=== PATIENT | female | born 1955 | race Hispanic/Latino ===

== ENCOUNTER 2019-03-31 18:49 | Emergency (ER) | payer BC, SELFPAY ==
[2019-03-31 19:02] VITALS: BP 143/74; PULSE 64; RESP 16; TEMP 36.2; O2SAT 98
--- NOTE | 2019-03-31 19:47 | ED.GENADULT ---
HPI - General Adult General Chief complaint: Ear Stated complaint: Dizziness/Vomiting/Ear pain Time Seen by Provider: 03/31/19 19:47 Source: patient and RN notes reviewed Mode of arrival: ambulatory Limitations: no limitations History of Present Illness HPI narrative: 64-year-old female presents with RT ear pain, itching, and clogged feeling for 3 days. Symptoms increased over the last 24 hours with dizziness, nausea, and vomiting. No treatment. History of Vertigo. Exacerbating factors consist of changing position too fast turning head from side to side too fast. Relieving factors is sitting still. No ear trauma, trauma to head, syncopal episodes, altered vision, altered speech, confusion, or seizure activity. Denies headache, numbness or tingling in extremities. Facial congestion and pressure. No facial swelling. Dry cough. No chest congestion. Nasal congestion and rhinorrhea. No sore throat. No high fevers, drooling, neck or throat swelling. No voice change. Nausea with 2 episodes of vomiting without blood or coffee ground emesis or abdominal pain. Tolerating liquids well. Denies chills, dyspnea, difficulty swallowing, jaw pain, dental pain, foreign body sensation, and rash. No chest pain or shortness of breath. Some parts of this dictation were generated by voice recognition software and may contain typographical and/or grammatical inaccuracies. Related Data Home Medications Medication Instructions Recorded Confirmed etanercept [Enbrel] 50 mg SUBCUT WEEKLY 03/31/19 03/31/19 Allergies Allergy/AdvReac Type Severity Reaction Status Date / Time No Known Allergies Allergy Verified 03/31/19 18:55 Review of Systems Review of Systems: Narrative: CONSTITUTIONAL: Denies fever, chills, sweats. EYES: Denies visual changes, redness, discharge. ENT: Complains of RT otalgia, rhinorrhea, congestion, facial congestion and pressure. Denies sore throat. CARDIOVASCULAR: Denies chest pain, palpitations, edema. RESPIRATORY: Denies dyspnea, wheezing. Complains of dry cough. GASTROINTESTINAL: Denies abdominal pain, diarrhea. Complains of nausea, vomiting. GENITOURINARY: Denies dysuria, hematuria, abnormal discharge SKIN: Denies rash or itching. MUSCULOSKELETAL: Denies acute back pain, joint pain, or myalgia. NEUROLOGIC: Denies numbness, or focal weakness. Complains of dizziness with intermittent spinning feeling. PSYCHIATRIC: Denies anxiety or depression. [facility] Past Medical History Medical History (Updated 04/01/19 @ 00:00 by Meir Silva) Arthritis Surgical History Surgical History (Updated 03/31/19 @ 19:57 by ALEXIA Johnson) History of cholecystectomy History of eye surgery Left Family History Family History Father Family history of malignant neoplasm, Onset Age: 104 Social History Social History (Updated 03/31/19 @ 19:57 by ALEXIA Johnson) Smoking status: Never smoker Alcohol intake: never Substance use: never Living arrangements: with family Occupation/Education: occupation Gender identity (if verbalized by the patient): Female Comments At time of signature, agree with nurse past medical, surgical, social, and family history. There is no relevant family history pertinent to the presenting complaint. Exam Narrative: Exam Narrative: GENERAL: This is a well-nourished, well-developed patient, in no apparent distress. Talks in full sentences and ambulates with steady gait without dyspnea. HEAD: normocephalic, atraumatic. EYES: PERRL. Sclera clear/white. Vision is grossly intact. EARS: Pinna is normal shape and contour. Clear external auditory canals. LT TM pearly hernandez with good cone of light, no erythema or suppuration. RT TM mild erythema and effusion, bulging, no drainage or suppuration. No tenderness with manipulation. No gross hearing deficit. NOSE: External nose normal with no obvious nasal disc
[2019-03-31] MEDS: ONDANSETRON HCL ODT 4 MG TABLET PO (19:58)
[2019-03-31] MEDS: MECLIZINE HCL 25 MG TABLET PO (19:58)
[2019-03-31 20:00] VITALS: BP 128/69; PULSE 61
[2019-03-31 20:01] VITALS: BP 132/70; PULSE 61
[2019-03-31 20:02] VITALS: BP 122/79; PULSE 67
== END 2019-03-31 20:35 | disposition home or self-care (01) ==
PROVIDERS: Emergency Provider Nurse Practitioner Family
DX: R42 Dizziness and giddiness (principal); H65.191 Other acute nonsuppurative otitis media, right ear; M19.90 Unspecified osteoarthritis, unspecified site
CPT/HCPCS: 99213; A9270; G0463

== ENCOUNTER 2021-09-02 14:15 | Emergency (ER) | payer BC, SELFPAY ==
[2021-09-02 14:26] VITALS: BP 129/71; PULSE 65; RESP 16; TEMP 36.3; O2SAT 100
--- NOTE | 2021-09-02 14:40 | ECG_ITS ---
Rate 62 VA 159 QRSd 98 QT 397 QTc 404 --[place]-- P 58 QRS 24 T 48 SINUS RHYTHM INCOMPLETE RIGHT BUNDLE BRANCH BLOCK CONSIDER INFERIOR INFARCT, AGE INDETERMINATE BASELINE ARTIFACT- I, II, III, AVR, AVL, AVF, V1-V2, V4-V6 ABNORMAL ECG Electronically Signed On 09-03-2021 9:08:50 CDT by Dagoberto CALVERT
--- NOTE | 2021-09-02 14:47 | ED.CHESTPAIN ---
HPI - Chest Pain General Chief Complaint: Chest Pain Stated Complaint: sob Time Seen by Provider: 09/02/21 14:42 Source: patient and RN notes reviewed Mode of arrival: ambulatory Limitations: no limitations History of Present Illness HPI narrative: 66-year-old female brought in by with complaints of left-sided chest pain that radiates into her left neck and her back. Patient is reporting the pain has been increasing over the last 3 days interpretation through , Telugu-speaking Patient had COVID 4 weeks ago. Patient is diabetic and states that she is well controlled. History of high cholesterol anf hypertension MD complaint: chest pain Onset (ago): day(s) (3) Pain radiation: neck and left scapula Risk Factors Coronary artery disease risk factors: diabetes, hyperlipidemia and hypertension Related Data Home Medications Medication Instructions Recorded Confirmed etanercept 50 mg/mL (1 mL) 50 mg subcut WEEKLY 03/31/19 03/31/19 subcutaneous syringe (Enbrel) prednisone 5 mg tablet 5 mg PO DAILY PRN 05/22/20 atorvastatin 20 mg tablet tablet 09/02/21 metformin 750 mg tablet,extended tablet PO 09/02/21 release 24 hr Allergies Allergy/AdvReac Type Severity Reaction Status Date / Time No Known Allergies Allergy Verified 03/31/19 18:55 Review of Systems Review of Systems: All systems reviewed & are unremarkable except as noted in HPI and below Constitutional: Constitutional: Reports no additional constitutional complaints, Denies chills and Denies fever(s) Eyes: Eyes: Reports no additional eye complaints ENT: Reports system reviewed and no additional complaints, except as documented Cardiovascular: Cardiovascular: Reports as per HPI, Reports chest pain, Reports chest pain at rest and Reports chest pain with activity Respiratory: Respiratory: Reports no additional respiratory complaints Gastrointestinal: Gastrointestinal: Reports no additional gastrointestinal complaints Musculoskeletal: Musculoskeletal: Reports no additional musculoskeletal complaints Integumentary/Breasts: Skin/Breast: Reports system reviewed and no additional complaints, except as docu Neurologic: Reports system reviewed and no additional complaints, except as documented Psychiatric: Psychiatric: Reports no additional psychiatric complaints Allergic/Immunologic: Allergic/Immunologic: Reports no additional allergic/immunologic complaints [facility] Past Medical History Medical History (Updated 09/02/21 @ 15:15 by Catie Vogt APRN) Arthritis Diabetes High cholesterol Hypertension Surgical History Surgical History History of cholecystectomy History of eye surgery Left Family History Family History Father Family history of malignant neoplasm, Onset Age: 104 Social History Social History Smoking status: Never smoker Alcohol intake: never Substance use: never Gender identity (if verbalized by the patient): Female Comments At the time of my signature, I reviewed and agree with the nursing past medical, surgical, social, and family history. There is no relevant family history pertinent to the patient complaint. Exam Const: General: healthy appearing, no acute distress and alert Nutritional Appearance: well nourished Orientation/consciousness: patient oriented x3 Limitations: no limitations HENMT: Head: normal to inspection Ears: external ears normal Eyes: General: appearance normal, both eyes and all related structures Pupils: Equal, round and reactive pupils present Neck: Neck: normal visual inspection, no lymphadenopathy and no meningeal signs Chest: Chest palpation & inspection: normal inspection of the chest Resp: Effort & Inspection: normal respiratory effort and no use of accessory muscles Auscultation: clear to auscultati
== END 2021-09-02 14:59 | disposition short-term general hospital (02) ==
PROVIDERS: Emergency Provider Nurse Practitioner
DX: R07.9 Chest pain, unspecified (principal); E11.9 Type 2 diabetes mellitus without complications; E78.00 Pure hypercholesterolemia, unspecified; I10 Essential (primary) hypertension; M19.90 Unspecified osteoarthritis, unspecified site; Z86.16 Personal history of COVID-19
CPT/HCPCS: 93005; 99215; G0463

== ENCOUNTER 2021-09-02 15:12 | Emergency (ER) | payer BC, SELFPAY ==
[2021-09-02] VITALS (7 sets, daily range): BP systolic 134–146; BP diastolic 73–86; PULSE 57–69; RESP 14–21; TEMP 36.8; O2SAT 97–100
--- NOTE | ~2021-09-02 | XR_ITS ---
EXAMINATION: XR chest 2V Exam Date/Time: 09/02/2021 15:44 CDT HISTORY: L SIDED CP/BURNING X 2 DAYS, COVID+ 2 WEEKS AGO HX HTN Comparison: None available. RESULT: Lines, tubes, and devices: Cholecystectomy clips. Lungs and pleura: Clear. Cardiomediastinal silhouette: Unremarkable. Other: No acute osseous or upper abdominal finding. IMPRESSION: No acute cardiopulmonary process. Reviewed, dictated and finalized at location K.
--- NOTE | 2021-09-02 15:17 | ECG_ITS ---
Measurements Intervals [place] Rate: 56 P: 56 GA: 166 QRS: 20 QRSD: 93 T: 52 QT: 422 QTc: 408 Interpretive Statements SINUS BRADYCARDIA CONSIDER INFERIOR INFARCT, AGE INDETERMINATE ABNORMAL ECG Electronically Signed On 09-03-2021 9:09:17 CDT by Dagoberto Campo D.O.
[2021-09-02 15:47] LABS: Basophils Percent Auto 0.4 % (0.2-1.2); Eosinophils Percent Auto 0.2 % (0-4.4); Hematocrit 39.1 % (37.0-47.0); Immature Granulocyte Absolute 0.01 K/mm3 (0.00-0.031); Immature Granulocyte Percent A 0.2 % (0-0.5); Lymphocytes Absolute Auto 1.22 K/mm3 (0.9-3.2); Lymphocytes Percent Auto 25.1 % (18.3-44.2); Mean Corpuscular HGB Conc 33.2 g/dl (32-36); Mean Corpuscular Hemoglobin 31.2 pg (26-34); Mean Corpuscular Volume 93.8 fl (80-100); Mean Platelet Volume 9.8 fl (7.4-10.4); Monocytes Absolute Auto 0.2 K/mm3 (0.1-0.6); Monocytes Percent Auto 4.9 % (2.6-8.5); Neutrophils Absolute Auto 3.4 K/mm3 (1.3-6.7); Neutrophils Percent Auto 69.2 % (45.5-73.1); Platelet Count Result 173 k/mm3 (150-375); Red Blood Count 4.17 M/mm3 (4.2-5.4); Red Cell Distribution Width 12.7 % (11.5-14.5); White Blood Count 4.9 K/mm3 (4.5-10.0)
[2021-09-02 15:59] LABS: INR 1.1; Prothrombin Time 13.8 Seconds (11.1-14.7)
[2021-09-02 16:00] LABS: Partial Thromboplastin Time 28.7 SECONDS (22.3-36.8)
[2021-09-02 16:06] LABS: Alanine Aminotransferase 29 U/L (6-35); Alkaline Phosphatase 88 U/L (38-126); Anion Gap 4 mmol/L (8-16); Aspartate Amino Transferase 31 U/L (14-36); Bilirubin,Total 0.6 mg/dL (0.2-1.3); Blood Urea Nitrogen 12 mg/dL (7-17); Calcium 8.4 mg/dL (8.4-10.2); Carbon Dioxide 27 mmol/L (22-30); Chloride 106 mmol/L (98-107); Estimated CRCL calculation 76 ml/min; Estimated Glomerular Filt Rate > 60; Glucose 187 mg/dL (65-110); Lipase 156 U/L (23-300); Potassium 3.7 mmol/L (3.4-5.0); Sodium 137 mmol/L (137-145)
[2021-09-02 16:17] LABS: Troponin I < 0.012 ng/mL (0.000-0.034)
--- NOTE | 2021-09-02 16:31 | ED.CHESTPAIN ---
HPI - Chest Pain General Chief Complaint: Chest Pain Stated Complaint: CHEST PAIN Time Seen by Provider: 09/02/21 16:28 Source: patient Mode of arrival: ambulatory Limitations: no limitations History of Present Illness HPI narrative: 66 years old female came to the emergency room complaining of left upper chest pain, left upper back pain started 3 to 4 days ago, worse with deep breathing and certain movement. She denies any fever, chills, nausea, vomiting, trouble breathing. History of diabetes, hyperlipidemia, does not take blood thinner, does not smoke or drink or uses drugs. History of COVID infection 4 weeks ago with quite a bit of coughing at that time, currently complaining of nasal and postnasal discharge and a clogged right ear with sore throat. Patient has been vaccinated and boosted once Related Data Home Medications Medication Instructions Recorded Confirmed etanercept 50 mg/mL (1 mL) 50 mg subcut WEEKLY 03/31/19 03/31/19 subcutaneous syringe (Enbrel) prednisone 5 mg tablet 5 mg PO DAILY PRN 05/22/20 atorvastatin 20 mg tablet tablet 09/02/21 metformin 750 mg tablet,extended tablet PO 09/02/21 release 24 hr Allergies Allergy/AdvReac Type Severity Reaction Status Date / Time No Known Allergies Allergy Verified 09/02/21 15:21 Review of Systems Review of Systems: All systems reviewed & are unremarkable except as noted in HPI and below PMFSH Past Medical History Medical History Arthritis Diabetes High cholesterol Hypertension Surgical History Surgical History History of cholecystectomy History of eye surgery Left Family History Family History Father Family history of malignant neoplasm, Onset Age: 104 Social History Social History Smoking status: Never smoker Alcohol intake: never Substance use: never Gender identity (if verbalized by the patient): Female Exam Narrative: General appearance: Well-developed, well-nourished Skin: Normal color Head: Normocephalic, nontraumatic Eyes: Clear conjunctiva ENT: Oropharynx normal, ears normal, nose normal Neck: Supple, nontender Chest and respiratory: Airway patent, no respiratory distress, no accessory muscle use, moderate tenderness left upper chest and left upper back, no rash, no swelling or bruises Heart: Regular rate/rhythm Abdomen: Soft, nontender, no organomegaly, quiet bowel sounds Vascular: Normal peripheral pulses, normal capillary refill. Musculoskeletal: Normal range of motion, nontender back Neurologic: Alert and oriented ?3, [employer] is normal as tested, no gross motor deficit Course Course Emergency Course: Work-up did not show any significant finding to explain patient condition. Musculoskeletal is my concern. Patient been coughing for a while because of the COVID infection in the last 3 to 4 weeks, chest wall muscular strain is my concern. Patient will be discharged on anti-inflammatory medicine. Vital Signs Vital signs: Vital Signs Temperature 36.8 C 09/02/21 15:17 Pulse Rate 69 09/02/21 15:17 Respiratory Rate 14 09/02/21 15:17 Blood Pressure 146/73 H 09/02/21 15:17 Pulse Oximetry 100 09/02/21 15:17 Temperature 36.8 C 09/02/21 15:17 Pulse Rate 64 09/02/21 16:20 Respiratory Rate 16 09/02/21 16:20 Blood Pressure 134/86 09/02/21 16:20 Pulse Oximetry 98 09/02/21 16:20 MDM - Chest Pain Differential Diagnosis Differential diagnosis: Likely pneumothorax, unstable angina pectoris
[2021-09-02 17:23] LABS: D Dimer 0.27 ug/mL (<0.48)
--- NOTE | 2021-09-02 17:48 | ECG_ITS ---
Rate 55 W[place] 167 QRSd 93 QT 405 QTc 390 --[place]-- P 54 QRS 23 T 53 SINUS BRADYCARDIA INCOMPLETE RIGHT BUNDLE BRANCH BLOCK BORDERLINE ECG Electronically Signed On 09-02-2021 23:15:15 CDT by Dagoberto Campo D.O. COMPARED TO ECG 09/02/2021 15:24:46 INCOMPLETE RIGHT BUNDLE-BRANCH BLOCK NOW PRESENT MTDD
== END 2021-09-02 18:55 | disposition home or self-care (01) ==
PROVIDERS: Emergency Medicine; Emergency Provider Emergency Medicine
DX: R07.89 Other chest pain (principal); E11.9 Type 2 diabetes mellitus without complications; E78.00 Pure hypercholesterolemia, unspecified; I10 Essential (primary) hypertension; Z86.16 Personal history of COVID-19; M19.90 Unspecified osteoarthritis, unspecified site; Z79.84 Long term (current) use of oral hypoglycemic drugs
CPT/HCPCS: 36415; 71046; 80053; 83690; 84484; 85025; 85380; 85610; 85730; 93005; 99284

== ENCOUNTER → 2022-06-28 07:39 | Outpatient (CLI) | payer MEDICARE, SELFPAY ==
--- NOTE | ~2022-06-28 | US_ITS ---
EXAMINATION: US pelvic complete w TV DATE: 06/28/2022 08:28 INDICATION: Left lower quadrant pain Comparison:No prior studies for comparison. TECHNIQUE: Multiple transabdominal and endovaginal sonographic images of the pelvis performed. FINDINGS: The uterus measures 5.4 x 2.2 x 3.4 cm. The endometrial complex measures 4 mm. The right ovary measures 1.6 x 1.5 x 1.5 cm. Normal Doppler signal of the right ovary. The left ovary is not visualized. There is no free fluid in the pelvis. There are no abnormal masses seen on eithe r side. IMPRESSION: 1. Unremarkable pelvic ultrasound. Reviewed, dictated and finalized at location B.
== END ==
PROVIDERS: PCP Physician Assistant; Visit Provider Physician Assistant
DX: R10.32 Left lower quadrant pain (principal)
CPT/HCPCS: 76830; 76856

== ENCOUNTER 2022-07-17 08:37 | Outpatient (CLI) | payer MEDICARE, SELFPAY ==
--- NOTE | ~2022-07-17 | MM_ITS ---
EXAMINATION: MM screening navarro BI w candis HISTORY: Screening mammogram TECHNIQUE: Craniocaudal and mediolateral oblique 3-D tomosynthesis images were obtained and synthetic 2-D images were generated. CAD analysis was submitted and interpreted. COMPARISON: No prior mammogram is available for comparison at this institution. BREAST PARENCHYMAL COMPOSITION: There are scattered areas of fibroglandular density. FINDINGS: There is no evidence of suspicious mass, calcification, or architectural distortion to sugg est malignancy in either breast. There has been no suspicious interval change. IMPRESSION: 1. No mammographic evidence of malignancy. 2. Recommend routine screening mammography in one year. BI-RADS Category 1: Negative Reviewed, dictated and finalized at location A.
== END 2022-07-17 08:38 | disposition home or self-care (01) ==
LOC: ANHIMG 08:40
PROVIDERS: PCP Physician Assistant; Visit Provider Physician Assistant
DX: Z12.31 Encounter for screening mammogram for malignant neoplasm of breast (principal)
CPT/HCPCS: 77063; 77067

== ENCOUNTER 2022-09-05 07:57 | Emergency (ER) | payer MEDICARE, SELFPAY ==
--- NOTE | ~2022-09-05 | CT_ITS ---
EXAMINATION: CT abdomen pelvis w con DATE: 09/05/2022 09:21 INDICATION: Left lower quadrant abdominal pain, radiating to left lower extremity TECHNIQUE: Computed tomography (CT) of the abdomen and pelvis was performed with 100 CC Omnipaque 350 intravenous contrast. Automated exposure control and iterative reconstruction technique were employe d. Exam dose: 431.02 mGy-cm total exam DLP. COMPARISON: 06/28/2022 pelvic ultrasound examination, reported unremarkable 05/19/2013 CT abdomen pelvis FINDINGS: There is minimal bilateral dependent lower lobe atelectasis. The lower lung zones otherwise are clear. Cardiomegaly. No pericardial or pleural effusion. Status post cholecystectomy. There is diffuse hepatic steatosis. No hepatic, splenic, pancreatic or adrenal space-occupying mass l esion. The right renal pelvis is anteriorly directed consistent with incomplete rotation of the right kidney . Approximately 9 mm right renal cysts. Probable 3 mm left renal cyst. No renal or apparent ureteral ca lculus or hydroureteronephrosis. The urinary bladder is unremarkable. Retroverted uterus. No adnexal masses are noted. There is atherosclerotic calcification but normal caliber of the abdominal aorta. No intraperitoneal or retroperitoneal or pelvic mass lesion or adenopathy or ascites is detected. No evidence of appendicitis. There is diverticulosis of the left colon. There is soft tissue thickening of the sigmoid colon and p ericolic fat stranding in the sigmoid region suggesting diverticulitis. No abscess cavity or intraper itoneal free air is evident. No bowel obstruction is detected. No suspicious osteolytic or osteoblastic lesions. IMPRESSION: Sigmoid diverticulitis; no abscess identified Hepatic steatosis Status post cholecystectomy Renal cysts Reviewed, dictated and finalized at Location [facility]. Reviewed, dictated and finalized at location L.
[2022-09-05 08:15] VITALS: BP 146/84; PULSE 65; RESP 16; TEMP 36.6; O2SAT 99
[2022-09-05 08:25] LABS: Basophils Percent Auto 0.1 % (0.2-1.2); Eosinophils Percent Auto 0.2 % (0-4.4); Hematocrit 42.3 % (37.0-47.0); Hemoglobin 14.2 g/dL (12.0-15.0); Immature Granulocyte Absolute 0.04 K/mm3 (0.00-0.031); Immature Granulocyte Percent A 0.4 % (0-0.5); Lymphocytes Absolute Auto 2.12 K/mm3 (0.9-3.2); Lymphocytes Percent Auto 20.4 % (18.3-44.2); Mean Corpuscular HGB Conc 33.6 g/dl (32-36); Mean Corpuscular Hemoglobin 31.7 pg (26-34); Mean Corpuscular Volume 94.4 fl (80-100); Mean Platelet Volume 9.6 fl (7.4-10.4); Monocytes Absolute Auto 0.9 K/mm3 (0.1-0.6); Monocytes Percent Auto 8.4 % (2.6-8.5); Neutrophils Absolute Auto 7.4 K/mm3 (1.3-6.7); Neutrophils Percent Auto 70.5 % (45.5-73.1); Platelet Count Result 154 k/mm3 (150-375); Red Blood Count 4.48 M/mm3 (4.2-5.4); Red Cell Distribution Width 11.8 % (11.5-14.5); White Blood Count 10.4 K/mm3 (4.5-10.0)
--- NOTE | 2022-09-05 08:32 | ED.ABDPAIN ---
HPI - Abdominal Pain General Chief Complaint: Abdominal Pain Stated Complaint: abd pain Time Seen by Provider: 09/05/22 08:02 History of Present Illness HPI narrative: 67-year-old female presenting with left lower quadrant abdominal pain, she does have a history of sciatica, but she feels it is worse today, she often has left lower back pain that radiates down her leg but it feels worse today with tingling, she has no numbness in between her legs, she is able to ambulate but it does hurt. She also endorses some pain with urination. Related Data Home Medications Medication Instructions Recorded Confirmed etanercept 50 mg/mL (1 mL) 50 mg subcut WEEKLY 03/31/19 03/31/19 subcutaneous syringe (Enbrel) prednisone 5 mg tablet 5 mg PO DAILY PRN 05/22/20 atorvastatin 20 mg tablet tablet 09/02/21 metformin 750 mg tablet,extended tablet PO 09/02/21 release 24 hr Allergies Allergy/AdvReac Type Severity Reaction Status Date / Time No Known Allergies Allergy Verified 09/02/21 15:21 Review of Systems Review of Systems: CONST: No fever. HEENT: No sore throat C/V: No chest pain RESP: No cough GI: Reports left lower quadrant pain without nausea or vomiting : No dysuria. M/S: Left hip pain SKIN: No rash. NEURO: Tingling down left leg PSYCH: [No depression] [facility] Past Medical History Medical History Arthritis Diabetes High cholesterol Hypertension Surgical History Surgical History History of cholecystectomy History of eye surgery Left Family History Family History Father Family history of malignant neoplasm, Onset Age: 104 Social History Social History Smoking status: Never smoker Alcohol intake: never Substance use: never Living arrangements: with family Occupation/Education: occupation Gender identity (if verbalized by the patient): Female Exam Narrative: EXAMINATION OF ORGAN SYSTEMS/BODY AREAS: Constitutional: Vital signs per nursing GENERAL: Appears uncomfortable in the bed HEAD: Normal with no signs of head trauma. EYES: EOMI, conjunctiva normal ENT: Hearing grossly intact LUNGS: Nonlabored breathing. HEART: [Regular rate and rhythm] ABD: [Soft], slightly tender to palpation left lower quadrant abdomen EXT: Normal range of motion, able to extend and flex knees bilaterally, normal DP pulses bilaterally SKIN: [No rashes or lesions.] NEURO: [Alert and oriented x 3. No gross focal sensory or strength deficits, no saddle anesthesia.] PSYCH: Anxious affect Course Vital Signs Vital signs: Vital Signs Temperature 98 F 09/05/22 08:15 Pulse Rate 65 09/05/22 08:15 Respiratory Rate 16 09/05/22 08:15 Blood Pressure 146/84 H 09/05/22 08:15 Pulse Oximetry 99 09/05/22 08:15 Oxygen Delivery Room Air 09/05/22 08:15 Temperature 97.9 F 09/05/22 10:15 Pulse Rate 64 09/05/22 11:00 Respiratory Rate 16 09/05/22 11:00 Blood Pressure 142/75 H 09/05/22 11:00 Pulse Oximetry 100 09/05/22 11:00 Oxygen Delivery Room Air 09/05/22 08:15 MDM - Abdominal Pain MDM Narrative Medical decision making narrative: Electronic medical record was reviewed. Patient presented to the ED with complaint of [abdominal pain]. Vitals [were within acceptable limits]. Physical exam revealed [tenderness to palpation in LLQ]. Based on the patient's history and physical exam, my differential includes but is not limited to [gastritis, gastroenteritis, diverticulitis, sciatica]. NO signs of caudal equina. [IV access was established by nursing staff. Patient was given morphine]. CBC, BMP, lipase, LFTs, bilirubin and alk phos were obtained. Labs were pertinent for very minimally elevated white count. [Decision was made to obtain a CT-abdomen to evaluate for acute abdom
[2022-09-05 08:35] LABS: Alanine Aminotransferase 63 U/L (6-35); Albumin Level 4.1 g/dL (3.5-5.1); Alkaline Phosphatase 138 U/L (38-126); Anion Gap 6 mmol/L (8-16); Aspartate Amino Transferase 38 U/L (14-36); Bilirubin,Total 1.2 mg/dL (0.2-1.3); Blood Urea Nitrogen 13 mg/dL (7-17); Calcium 8.8 mg/dL (8.4-10.2); Carbon Dioxide 27 mmol/L (22-30); Chloride 106 mmol/L (98-107); Estimated Glomerular Filt Rate > 60; Glucose 133 mg/dL (65-110); Lipase 88 U/L (23-300); Potassium 4.6 mmol/L (3.4-5.0); Sodium 139 mmol/L (137-145)
[2022-09-05] MEDS: MORPHINE SULFATE (*CRX) 4 MG/ML INJ IV PUSH (08:49)
[2022-09-05 09:21] LABS: Add Urine Microscopic? YES; Appearance Urine Clear (Clear); Bacteria Urine None Seen /hpf; Bilirubin Urine Negative (Negative); Blood Urine Negative (Negative); Color Urine Yellow (Yellow); Glucose Urine UA Negative (Negative); Ketones Urine Negative (Negative); Leukocyte Esterase Ur 1+ LEU/UL (Negative); Mucus Urine Present /lpf; Need Manual Microscopic Reviewed; Nitrate Urine Negative (Negative); Non Pathogenic Casts 0-2; Protein Urine Negative (Negative); RBC Urine 0-2 /hpf (0-2); Squamous Epithelial Cell Urine None seen /hpf (Few); Urobilinogen Urine 0.2 mg/dL (<2.0); WBC Urine 0-5 /hpf; pH Urine 6.5 (5.0-9.0)
[2022-09-05 10:15] VITALS: BP 145/69; PULSE 60; RESP 18; TEMP 36.6; O2SAT 100
[2022-09-05] MEDS: AMOXICILLIN/CLAVULANATE K 875-125 MG TAB 1 TABLET PO (10:54)
[2022-09-05 11:00] VITALS: BP 142/75; PULSE 64; RESP 16; O2SAT 100
== END 2022-09-05 11:00 | disposition home or self-care (01) ==
PROVIDERS: Emergency Provider Emergency Medicine; PCP Physician Assistant
DX: K57.32 Diverticulitis of large intestine without perforation or abscess without bleeding (principal); E11.9 Type 2 diabetes mellitus without complications; E78.00 Pure hypercholesterolemia, unspecified; I10 Essential (primary) hypertension; M19.90 Unspecified osteoarthritis, unspecified site; Z79.84 Long term (current) use of oral hypoglycemic drugs; Z90.49 Acquired absence of other specified parts of digestive tract; K76.0 Fatty (change of) liver, not elsewhere classified; N28.1 Cyst of kidney, acquired
CPT/HCPCS: 36415; 74177; 80053; 81001; 83690; 85025; 96374; 99284; A9270; J2270; Q9967

== ENCOUNTER 2022-09-09 05:47 | Observation (INO) | payer MEDICARE, SELFPAY ==
[2022-09-09] VITALS (9 sets, daily range): BP systolic 106–137; BP diastolic 59–70; PULSE 65–77; RESP 14–20; TEMP 36.8; O2SAT 95–98; BMI 29.2
--- NOTE | ~2022-09-09 | CT_ITS ---
EXAMINATION: CT abdomen pelvis w con DATE: 09/09/2022 07:05 INDICATION: Left lower quadrant abdominal pain. Rebound tenderness. TECHNIQUE: Computed tomography (CT) of the abdomen and pelvis was performed with 100 cc Omnipaque 350 intravenous contrast. The dose-length product was 436.94 mGy-cm. Automated exposure control and iter ative reconstruction technique were employed. COMPARISON: CT dated 09/05/2022 FINDINGS: Interval progression of sigmoid diverticulitis with increased thickening and surrounding ph legmonous change. Small amount of free fluid in the left pelvis. No evidence for perforation or absce ss. There is dependent atelectasis. Borderline heart size. No significant pleural or pericardial effusion . Malrotation of the right kidney. Small subcentimeter hypodensity of the right kidney, too small to characterize, although likely benign. There is fatty infiltration of the liver. Status post cholecyst ectomy. The spleen, pancreas, adrenal glands and left kidney are unremarkable. Nonobstructive bowel g as pattern. There is atherosclerosis without evidence for aneurysm. Small hiatal hernia. No lymphaden opathy. IMPRESSION: 1. Interval progression of acute uncomplicated sigmoid diverticulitis compared with prior study. Reviewed, dictated and finalized at location A.
--- NOTE | 2022-09-09 06:01 | ED.ABDPAIN ---
HPI - Abdominal Pain General Chief Complaint: Abdominal Pain <Beni Peacock MD - Last Filed: 09/09/22 06:42> Stated Complaint: abd pain <Beni Peacock MD - Last Filed: 09/09/22 06:42> Time Seen by Provider: 09/09/22 05:51 <Beni Peacock MD - Last Filed: 09/09/22 06:42> History of Present Illness HPI narrative: This is a 67-year-old female, recently seen here and diagnosed with diverticulitis, who returns to the emergency department complaining of severe left lower quadrant abdominal pain. The patient states her pain became severe about 5 hours ago. It is described as sharp and does not radiate. She denies associated nausea, vomiting, hematochezia, melena or diarrhea. She is able to pass gas. <Beni Peacock MD - Last Filed: 09/09/22 06:42> Related Data Home Medications: Home Medications Medication Instructions Recorded Confirmed etanercept 50 mg/mL (1 mL) 50 mg subcut WEEKLY 03/31/19 09/09/22 subcutaneous syringe (Enbrel) prednisone 5 mg tablet 5 mg PO DAILY PRN RA 05/22/20 09/09/22 metformin 750 mg tablet,extended 750 mg PO AC 09/02/21 09/09/22 release 24 hr <Beni Peacock MD - Last Filed: 09/09/22 06:42> Allergies/Adverse Reactions: Allergies Allergy/AdvReac Type Severity Reaction Status Date / Time No Known Allergies Allergy Verified 09/02/21 15:21 <Beni Peacock MD - Last Filed: 09/09/22 06:42> Review of Systems Review of Systems: CONSTITUTIONAL: Denies fever, chills, or sweats. CARDIOVASCULAR: Denies chest pain, palpitations, or edema. RESPIRATORY: Denies cough or dyspnea. GASTROINTESTINAL: Left lower quadrant abdominal pain denies nausea, vomiting, or diarrhea. GENITOURINARY: Dysuria denies hematuria. SKIN: Denies rash or itching. MUSCULOSKELETAL: Denies back pain, joint pain, or myalgia. NEUROLOGIC: Denies headache, numbness, dizziness, or weakness. PSYCHIATRIC: Denies anxiety or depression. <Beni Peacock MD - Last Filed: 09/09/22 06:42> PMFSH Past Medical History Medical History: Medical History (Updated 09/09/22 @ 08:48 by Rad Redman MD) Arthritis Diabetes Diverticulitis High cholesterol Hypertension <Beni Peacock MD - Last Filed: 09/09/22 06:42> Surgical History Surgical History: Surgical History History of cholecystectomy History of eye surgery Left <Beni Peacock MD - Last Filed: 09/09/22 06:42> Family History Family History: Family History Father Family history of malignant neoplasm, Onset Age: 104 <Beni Peacock MD - Last Filed: 09/09/22 06:42> Social History Social History: Social History Smoking status: Never smoker Alcohol intake: never Substance use: never Lack of Transportation: No Lack of Food: Never True Current Housing: I Have Housing Concerned About Future Housing: No Difficulty Paying Gas/Electric Bills: No Difficulty Paying for Meds: No Currently Unemployed: No Education: Don't Know Difficulty w/ Childcare or Family Care: No Living arrangements: with family Occupation/Education: occupation Gender identity (if verbalized by the patient): Female Spiritual care concerns: No <Beni Peacock MD - Last Filed: 09/09/22 06:42> Exam Narrative: GENERAL: Well-developed, well-nourished, and in no acute distress. Appears uncomfortable HEAD: Normocephalic, atraumatic. EYES: PERRLA and EOMI. ENT: Nares clear, no rhinorrhea or epistaxis. Mucous membranes moist. Oropharynx without tonsillar hypertrophy exudate or other lesions. CHEST: Clear to auscultation. No respiratory distress. No wheezes rales or rhonchi HEART: Regular rate and rhythm. No murmur heard. Normal peripheral pulses. ABDOMEN: Soft, tender to palpation in the, gr
[2022-09-09] MEDS: SODIUM CHLORIDE 0.9% IV 1,000 ML 999 ML IV CONT (06:10)
[2022-09-09] MEDS: ONDANSETRON INJ 4 MG/2 ML VIAL IV PUSH (06:11)
[2022-09-09] MEDS: MORPHINE SULFATE (*CRX) 4 MG/ML INJ IV PUSH ×4 (06:11→20:54)
[2022-09-09 06:28] LABS: Basophils Percent Auto 0.1 % (0.2-1.2); Eosinophils Percent Auto 0.1 % (0-4.4); Hemoglobin 13.3 g/dL (12.0-15.0); Immature Granulocyte Absolute 0.02 K/mm3 (0.00-0.031); Immature Granulocyte Percent A 0.2 % (0-0.5); Lymphocytes Absolute Auto 1.87 K/mm3 (0.9-3.2); Lymphocytes Percent Auto 17.2 % (18.3-44.2); Mean Corpuscular HGB Conc 34.1 g/dl (32-36); Mean Corpuscular Hemoglobin 31.8 pg (26-34); Mean Corpuscular Volume 93.3 fl (80-100); Mean Platelet Volume 9.7 fl (7.4-10.4); Monocytes Percent Auto 8.9 % (2.6-8.5); Neutrophils Percent Auto 73.5 % (45.5-73.1); Platelet Count Result 160 k/mm3 (150-375); Red Blood Count 4.18 M/mm3 (4.2-5.4); Red Cell Distribution Width 11.7 % (11.5-14.5); White Blood Count 10.9 K/mm3 (4.5-10.0)
[2022-09-09 06:34] LABS: Bacteria Urine None Seen /hpf; Non Pathogenic Casts 0-2; RBC Urine 0-2 /hpf (0-2); Squamous Epithelial Cell Urine Occasional /hpf (Few); WBC Urine 51-100 /hpf
[2022-09-09 06:38] LABS: Alanine Aminotransferase 35 U/L (6-35); Albumin Level 4.2 g/dL (3.5-5.1); Alkaline Phosphatase 67 U/L (38-126); Anion Gap 9 mmol/L (8-16); Aspartate Amino Transferase 33 U/L (14-36); Bilirubin,Total 1.4 mg/dL (0.2-1.3); Blood Urea Nitrogen 10 mg/dL (7-17); Calcium 8.8 mg/dL (8.4-10.2); Carbon Dioxide 23 mmol/L (22-30); Chloride 103 mmol/L (98-107); Estimated CRCL calculation 87 ml/min; Estimated Glomerular Filt Rate > 60; Glucose 152 mg/dL (65-110); Lactic Acid Reflex 1.5 mmol/L (0.7-2.0); Potassium 3.9 mmol/L (3.4-5.0); Sodium 135 mmol/L (137-145)
[2022-09-09 06:52] LABS: Appearance Urine Cloudy (Clear); Bilirubin Urine Negative (Negative); Blood Urine Negative (Negative); Glucose Urine UA Negative (Negative); Ketones Urine 1+ mg/dL (Negative); Leukocyte Esterase Ur 3+ LEU/UL (Negative); Nitrate Urine Negative (Negative); Protein Urine Trace mg/dL (Negative); Specific Grav Ur 1.019 (1.001-1.035)
[2022-09-09 07:04] LABS: Color Urine Dark Yellow (Yellow)
[2022-09-09] MEDS: PIPERACILLIN/TAZ 4.5G/NS 100ML 4.5 GM/100 ML BAG IVPB (07:50)
[2022-09-09 08:02] LABS: Add Urine Microscopic? YES
--- NOTE | 2022-09-09 08:38 | PM.IMHP ---
H&P: HPI History of Present Illness Date/Time: 09/09/22 08:38 Chief Complaint: Abdomen pain Narrative: Patient is Brazilian speaker, the interview was interpreted by patient's daughter at the bedside 67 years old lady with a history of hyperlipidemia, type 2 diabetes, present ED with a chief complaint of left lower quadrant pain. Patient is diagnosed diverticulitis on September 05, and has been treated with Augmentin p.o.. Patient's has worsening abdominal pain yesterday, locating the left lower quadrant, not tolerable. Therefore patient came to ED for evaluation, in the ED, patient was found have leukocytosis. Repeated CT scan reveals interval progression of acute uncomplicated sigmoid diverticulitis compared to the prior study. Patient is afebrile, hemodynamically stable. Patient also denies chest pain, shortness of breath, headache, focal weakness, nausea vomiting dysuria Review of Systems Review of Systems: RS negative except above PMFSH Past Medical History Medical History (Updated 09/09/22 @ 08:48 by Rad Redman MD) Arthritis Diabetes Diverticulitis High cholesterol Hypertension Surgical History Surgical History History of cholecystectomy History of eye surgery Left Family History Family History Father Family history of malignant neoplasm, Onset Age: 104 Social History Social History Smoking status: Never smoker Alcohol intake: never Substance use: never Lack of Transportation: No Lack of Food: Never True Current Housing: I Have Housing Concerned About Future Housing: No Difficulty Paying Gas/Electric Bills: No Difficulty Paying for Meds: No Currently Unemployed: No Education: Don't Know Difficulty w/ Childcare or Family Care: No Living arrangements: with family Occupation/Education: occupation Gender identity (if verbalized by the patient): Female Spiritual care concerns: No Meds Home Medications and Allergies Home Medications Medication Instructions Recorded Confirmed Type etanercept 50 mg/mL (1 mL) 50 mg subcut WEEKLY 03/31/19 09/09/22 History subcutaneous syringe (Enbrel) prednisone 5 mg tablet 5 mg PO DAILY PRN RA 05/22/20 09/09/22 History metformin 750 mg tablet,extended 750 mg PO AC 09/02/21 09/09/22 History release 24 hr Allergies Allergy/AdvReac Type Severity Reaction Status Date / Time No Known Allergies Allergy Verified 09/02/21 15:21 Vital Signs Vital Signs - 24 hr 09/09/22 05:53 09/09/22 07:39 09/09/22 07:40 Temperature 98.3 F Pulse Rate 77 Respiratory Rate 16 Blood Pressure 137/63 106/67 Pulse Oximetry 98 97 96 Oxygen Delivery Room Air 09/09/22 07:45 09/09/22 07:46 09/09/22 07:47 Temperature Pulse Rate 72 Respiratory Rate 20 Blood Pressure 116/70 116/70 Pulse Oximetry 95 96 96 Oxygen Delivery Exam Narrative: GENERAL: Pleasant, in no acute distress. Well-nourished. - EYES: EOMI. Anicteric. - HENT: Moist mucous membranes. - LUNGS: Clear to auscultation bilaterally, no wheezing, rhonchi, or rales. - CARDIOVASCULAR: Regular rate and rhythm. No murmur. No JVD. - ABDOMEN: Soft, left lower quadrant tender and non-distended. No palpable masses. - EXTREMITIES: No edema. Peripheral pulses 2+. Non-tender. - NEUROLOGIC: No focal neurological deficits. CN II-XII grossly intact. - PSYCHIATRIC: Awake, Alert and oriented x 3. Appropriate mood and affect. - SKIN: No rashes or lesions. Warm. - LYMPH: No cervical lymphadenopathy. H&P: Results Labs Labs: Short CBC 09/09/22 Range/Units 06:23 WBC 10.9 H (4.5-10.0) K/mm3 Hgb 13.3 (12.0-15.0) g/dL Hct 39.0 (37.0-47.0) % Plt Count 160 (150-375) k/mm3 [facility] 09/09/22 06:23 Sodium 135 L Potassium 3.9 Chloride 103 Carbon Dioxide 23 BUN
[2022-09-09 11:25] LABS: Glucose Point of Care 111 mg/dl (65-105)
[2022-09-09] MEDS: SODIUM CHLORIDE 0.9% IV 1,000 ML 125 ML IV CONT ×2 (11:45→15:44)
[2022-09-09] MEDS: HEPARIN SODIUM 5,000 UNITS/ML VIAL 5000 UNITS SUB-Q ×2 (15:44→20:50)
[2022-09-09] MEDS: PIPERACILLN/TAZ 3.375GM/NS50ML 3.375 GM/50 ML BAG IVPB ×2 (15:44→20:48)
[2022-09-09 16:34] LABS: Glucose Point of Care 135 mg/dl (65-105)
[2022-09-09 21:09] LABS: Glucose Point of Care 144 mg/dl (65-105)
[2022-09-10] MEDS: PIPERACILLN/TAZ 3.375GM/NS50ML 3.375 GM/50 ML BAG IVPB ×4 (02:32→20:26)
[2022-09-10] MEDS: SODIUM CHLORIDE 0.9% IV 1,000 ML 125 ML IV CONT ×2 (04:48→14:40)
[2022-09-10] MEDS: HEPARIN SODIUM 5,000 UNITS/ML VIAL 5000 UNITS SUB-Q ×3 (04:49→22:01)
[2022-09-10] MEDS: oxyCODONE/ACETAMINOPHEN (*CRX) 5-325 MG TABLET 1 TABLET PO (04:52)
[2022-09-10 05:48] VITALS: BP 119/68; PULSE 59; RESP 14; TEMP 36.3; O2SAT 98
[2022-09-10 06:04] LABS: Basophils Percent Auto 0.2 % (0.2-1.2); Eosinophils Percent Auto 0.3 % (0-4.4); Hematocrit 34.3 % (37.0-47.0); Hemoglobin 11.3 g/dL (12.0-15.0); Immature Granulocyte Absolute 0.02 K/mm3 (0.00-0.031); Immature Granulocyte Percent A 0.3 % (0-0.5); Lymphocytes Absolute Auto 1.86 K/mm3 (0.9-3.2); Lymphocytes Percent Auto 31.7 % (18.3-44.2); Mean Corpuscular HGB Conc 32.9 g/dl (32-36); Mean Corpuscular Hemoglobin 31.4 pg (26-34); Mean Corpuscular Volume 95.3 fl (80-100); Monocytes Absolute Auto 0.6 K/mm3 (0.1-0.6); Monocytes Percent Auto 10.2 % (2.6-8.5); Neutrophils Absolute Auto 3.4 K/mm3 (1.3-6.7); Neutrophils Percent Auto 57.3 % (45.5-73.1); Platelet Count Result 142 k/mm3 (150-375); Red Cell Distribution Width 11.5 % (11.5-14.5); White Blood Count 5.9 K/mm3 (4.5-10.0)
[2022-09-10 06:13] LABS: Anion Gap 5 mmol/L (8-16); Blood Urea Nitrogen 5 mg/dL (7-17); Carbon Dioxide 29 mmol/L (22-30); Chloride 103 mmol/L (98-107); Estimated CRCL calculation 87 ml/min; Estimated Glomerular Filt Rate > 60; Glucose 106 mg/dL (65-110); Potassium 3.8 mmol/L (3.4-5.0); Sodium 137 mmol/L (137-145)
[2022-09-10 08:12] LABS: Glucose Point of Care 102 mg/dl (65-105)
--- NOTE | 2022-09-10 08:41 | PM.IMPN ---
Progress Note: A&P Assessment and Plan (1) Acute diverticulitis of intestine: Code(s): K57.92 - Diverticulitis of intestine, part unspecified, without perforation or abscess without bleeding Status: Acute (2) Type 2 diabetes mellitus: Code(s): E11.9 - Type 2 diabetes mellitus without complications Status: Acute (3) Rheumatoid arthritis: Code(s): M06.9 - Rheumatoid arthritis, unspecified Status: Acute (4) Hyperlipidemia: Code(s): E78.5 - Hyperlipidemia, unspecified Status: Acute (5) Essential hypertension: Code(s): I10 - Essential (primary) hypertension Status: Acute Plan Acute diverticulitis Patient is found to have acute diverticulitis involving sigmoid colon, patient has been treated with Augmentin outpatient, Patient has a worsening abdomen pain the day before arrival in the ED, patient had leukocytosis, repeat CT scan reveals progression of diverticulitis without perforation or abscess Hold Augmentin, started Zosyn IV Optimize pain management Pain is improving, leukocytosis resolves May change to oral antibiotics tomorrow if condition continues to improve Start MiraLax p.o. Type 2 diabetes Home metformin Start insulin sliding scale a.c. q.h.s. during hospitalization Essential hypertension Patient is not on all home medication Blood pressure is controlled Hyperlipidemia Continue Lipitor at home dose Rheumatoid arthritis Hold Enbrel and prednisone p.o. during hospitalization because of severe infection of large intestine Patient may stay more than 2 midnight in hospital Subjective Date/time seen: 09/10/22 08:41 Interval history: Patient has no new issue even overnight, afebrile, leukocytosis resolves, pain is tolerable, denies nausea vomiting. Has no bowel movement Exam Narrative: GENERAL: Pleasant, in no acute distress. Well-nourished. - EYES: EOMI. Anicteric. - HENT: Moist mucous membranes. - LUNGS: Clear to auscultation bilaterally, no wheezing, rhonchi, or rales. - CARDIOVASCULAR: Regular rate and rhythm. No murmur. No JVD. - ABDOMEN: Soft, left lower quadrant tender and non-distended. No palpable masses. - EXTREMITIES: No edema. Peripheral pulses 2+. Non-tender. - NEUROLOGIC: No focal neurological deficits. CN II-XII grossly intact. - PSYCHIATRIC: Awake, Alert and oriented x 3. Appropriate mood and affect. - SKIN: No rashes or lesions. Warm. - LYMPH: No cervical lymphadenopathy. Objective Data Vital Signs Vital Signs: Vital Signs - 24 hr 09/09/22 10:29 09/09/22 14:00 09/09/22 20:00 Temperature 98.2 F 98.3 F Pulse Rate 66 65 Respiratory Rate 20 20 Blood Pressure 114/63 109/61 Pulse Oximetry 98 97 Oxygen Delivery Room Air 09/09/22 22:00 09/10/22 05:48 Temperature 98.3 F 97.4 F L Pulse Rate 66 59 L Respiratory Rate 14 14 Blood Pressure 119/59 L 119/68 Pulse Oximetry 97 98 Oxygen Delivery Intake/Output Intake/Output: Intake & Output 09/07/22 09/08/22 09/09/22 09/10/22 23:59 23:59 23:59 23:59 Intake Total 4720 650 Output Total 1200 1500 Balance 3520 -850 Meds/Results Medications: Active Medications Generic Name Dose Route Start Last Admin Trade Name Freq PRN Reason Stop Dose Admin Dextrose 12.5 gm 09/09/22 08:48 Dextrose 50% 25 Gm/50 Ml Syringe IV PUSH PRN PRN Hypoglycemia Protocol Glucagon 1 mg 09/09/22 08:48 Glucagon For Inj 1 Mg Vial IM PRN PRN Hypoglycemia Protocol Glucose 15 gm 09/09/22 08:48 Glucose Oral Gel 15 Gm Of Glucse In 37.5 Gm Tube PO PRN PRN Hypoglycemia Protocol Heparin Sodium (Porcine) 5,000 units 09/09/22 14:00 09/10/22 04:49 Heparin Sodium 5,000 Units/Ml Vial SUB-Q 5,000 units Q8HR KIMI Administration Sodium Chloride 1,000 mls @ 125 mls/hr 09/09/22 07:45 09/10/22 04:48 Normal Saline Iv IV CONT 125 mls/hr .Q8H KIMI Administration Piperacillin/Tazobactam/Dextros
[2022-09-10 11:38] LABS: Glucose Point of Care 125 mg/dl (65-105)
[2022-09-10] MEDS: polyethylene glycoL 3350 17 GM POWD.PACK PO (12:35)
[2022-09-10 14:00] VITALS: BP 119/60; PULSE 56; RESP 14; TEMP 36.1; O2SAT 99
[2022-09-10 16:35] LABS: Glucose Point of Care 101 mg/dl (65-105)
[2022-09-10 21:14] LABS: Glucose Point of Care 104 mg/dl (65-105)
[2022-09-10 22:00] VITALS: BP 124/68; PULSE 55; RESP 14; TEMP 37.3; O2SAT 99
[2022-09-11] MEDS: SODIUM CHLORIDE 0.9% IV 1,000 ML 125 ML IV CONT ×2 (00:12→08:07)
[2022-09-11] MEDS: PIPERACILLN/TAZ 3.375GM/NS50ML 3.375 GM/50 ML BAG IVPB ×4 (02:56→20:19)
[2022-09-11 06:00] VITALS: BP 133/63; PULSE 63; RESP 16; TEMP 36.6; O2SAT 99
[2022-09-11] MEDS: HEPARIN SODIUM 5,000 UNITS/ML VIAL 5000 UNITS SUB-Q ×3 (06:51→20:20)
[2022-09-11 07:31] LABS: Glucose Point of Care 106 mg/dl (65-105)
[2022-09-11] MEDS: oxyCODONE/ACETAMINOPHEN (*CRX) 5-325 MG TABLET 1 TABLET PO (08:10)
[2022-09-11] MEDS: polyethylene glycoL 3350 17 GM POWD.PACK PO (08:22)
[2022-09-11 09:27] LABS: Basophils Percent Auto 0.5 % (0.2-1.2); Eosinophils Percent Auto 0.7 % (0-4.4); Hematocrit 40.7 % (37.0-47.0); Hemoglobin 12.9 g/dL (12.0-15.0); Immature Granulocyte Absolute 0.01 K/mm3 (0.00-0.031); Immature Granulocyte Percent A 0.2 % (0-0.5); Lymphocytes Absolute Auto 1.53 K/mm3 (0.9-3.2); Lymphocytes Percent Auto 36.6 % (18.3-44.2); Mean Corpuscular HGB Conc 31.7 g/dl (32-36); Mean Corpuscular Hemoglobin 31.9 pg (26-34); Mean Corpuscular Volume 100.5 fl (80-100); Mean Platelet Volume 9.9 fl (7.4-10.4); Monocytes Absolute Auto 0.3 K/mm3 (0.1-0.6); Monocytes Percent Auto 7.7 % (2.6-8.5); Neutrophils Absolute Auto 2.3 K/mm3 (1.3-6.7); Neutrophils Percent Auto 54.3 % (45.5-73.1); Platelet Count Result 161 k/mm3 (150-375); Red Blood Count 4.05 M/mm3 (4.2-5.4); Red Cell Distribution Width 11.6 % (11.5-14.5); White Blood Count 4.2 K/mm3 (4.5-10.0)
[2022-09-11 10:03] LABS: Anion Gap 8 mmol/L (8-16); Blood Urea Nitrogen 3 mg/dL (7-17); Calcium 8.8 mg/dL (8.4-10.2); Carbon Dioxide 22 mmol/L (22-30); Chloride 108 mmol/L (98-107); Estimated CRCL calculation 87 ml/min; Estimated Glomerular Filt Rate > 60; Glucose 140 mg/dL (65-110); Potassium 3.9 mmol/L (3.4-5.0); Sodium 138 mmol/L (137-145)
--- NOTE | 2022-09-11 10:44 | PM.IMPN ---
Progress Note: A&P Assessment and Plan (1) Acute diverticulitis of intestine: Code(s): K57.92 - Diverticulitis of intestine, part unspecified, without perforation or abscess without bleeding Status: Acute (2) Type 2 diabetes mellitus: Code(s): E11.9 - Type 2 diabetes mellitus without complications Status: Acute (3) Rheumatoid arthritis: Code(s): M06.9 - Rheumatoid arthritis, unspecified Status: Acute (4) Hyperlipidemia: Code(s): E78.5 - Hyperlipidemia, unspecified Status: Acute (5) Essential hypertension: Code(s): I10 - Essential (primary) hypertension Status: Acute Plan Acute diverticulitis Patient is found to have acute diverticulitis involving sigmoid colon, patient has been treated with Augmentin outpatient, Patient has a worsening abdomen pain the day before arrival in the ED, patient had leukocytosis, repeat CT scan reveals progression of diverticulitis without perforation or abscess Hold Augmentin, started Zosyn IV Optimize pain management Pain is improving, leukocytosis resolves May change to oral antibiotics tomorrow if condition continues to improve Start MiraLax p.o. Type 2 diabetes Home metformin Start insulin sliding scale a.c. q.h.s. during hospitalization Essential hypertension Patient is not on all home medication Blood pressure is controlled Hyperlipidemia Continue Lipitor at home dose Rheumatoid arthritis Hold Enbrel and prednisone p.o. during hospitalization because of severe infection of large intestine Patient may stay more than 2 midnight in hospital Subjective Date/time seen: 09/11/22 10:44 Interval history: No complaints Exam Narrative: GENERAL: Pleasant, in no acute distress. Well-nourished. - EYES: EOMI. Anicteric. - HENT: Moist mucous membranes. - LUNGS: Clear to auscultation bilaterally, no wheezing, rhonchi, or rales. - CARDIOVASCULAR: Regular rate and rhythm. No murmur. No JVD. - ABDOMEN: Soft, left lower quadrant tender and non-distended. No palpable masses. - EXTREMITIES: No edema. Peripheral pulses 2+. Non-tender. - NEUROLOGIC: No focal neurological deficits. CN II-XII grossly intact. - PSYCHIATRIC: Awake, Alert and oriented x 3. Appropriate mood and affect. - SKIN: No rashes or lesions. Warm. - LYMPH: No cervical lymphadenopathy. Objective Data Vital Signs Vital Signs: Vital Signs - 24 hr 09/10/22 14:00 09/10/22 22:00 09/10/22 22:00 Temperature 97 F L 99.2 F Pulse Rate 56 L 55 L Respiratory Rate 14 14 Blood Pressure 119/60 124/68 Pulse Oximetry 99 99 99 Oxygen Delivery Room Air 09/11/22 06:00 09/11/22 08:10 Temperature 97.9 F Pulse Rate 63 Respiratory Rate 16 Blood Pressure 133/63 Pulse Oximetry 99 Oxygen Delivery Room Air Intake/Output Intake/Output: Intake & Output 09/08/22 09/09/22 09/10/22 09/11/22 23:59 23:59 23:59 23:59 Intake Total 4720 5052 2290 Output Total 1200 4100 1700 Balance 3520 952 590 Meds/Results Medications: Active Medications Generic Name Dose Route Start Last Admin Trade Name Freq PRN Reason Stop Dose Admin Dextrose 12.5 gm 09/09/22 08:48 Dextrose 50% 25 Gm/50 Ml Syringe IV PUSH PRN PRN Hypoglycemia Protocol Glucagon 1 mg 09/09/22 08:48 Glucagon For Inj 1 Mg Vial IM PRN PRN Hypoglycemia Protocol Glucose 15 gm 09/09/22 08:48 Glucose Oral Gel 15 Gm Of Glucse In 37.5 Gm Tube PO PRN PRN Hypoglycemia Protocol Heparin Sodium (Porcine) 5,000 units 09/09/22 14:00 09/11/22 06:51 Heparin Sodium 5,000 Units/Ml Vial SUB-Q 5,000 units Q8HR KIMI Administration Sodium Chloride 1,000 mls @ 125 mls/hr 09/09/22 07:45 09/11/22 08:07 Normal Saline Iv IV CONT 125 mls/hr .Q8H KIMI Administration Piperacillin/Tazobactam/Dextrose 3.375 gm in 50 mls @ 100 mls/hr 09/09/22 15:00 09/11/22 08:06 Zosyn 3.375 Gm/Ns 50 Ml IVPB 100 mls/hr Q6H KIMI A
[2022-09-11 11:39] LABS: Glucose Point of Care 141 mg/dl (65-105)
--- NOTE | 2022-09-11 13:45 | PCCCNOTE ---
On 09/11/22, the student, [Antionette Rapp ], provided care and completed [facility] documentation on this patient. I have reviewed the student's documentation and agree with the findings.
[2022-09-11 14:00] VITALS: BP 115/51; PULSE 57; RESP 20; TEMP 36.9; O2SAT 98
[2022-09-11 16:49] LABS: Glucose Point of Care 136 mg/dl (65-105)
[2022-09-11 19:32] LABS: Glucose Point of Care 157 mg/dl (65-105)
[2022-09-11 20:00] VITALS: PULSE 57; RESP 20; O2SAT 98
[2022-09-11 21:53] VITALS: BP 131/71; PULSE 53; RESP 14; TEMP 36.3; O2SAT 98
[2022-09-11 22:00] VITALS: O2SAT 98
[2022-09-12] MEDS: PIPERACILLN/TAZ 3.375GM/NS50ML 3.375 GM/50 ML BAG IVPB (03:06)
[2022-09-12] MEDS: HEPARIN SODIUM 5,000 UNITS/ML VIAL 5000 UNITS SUB-Q (05:32)
[2022-09-12 06:00] VITALS: BP 115/56; PULSE 55; RESP 14; TEMP 35.9; O2SAT 98
[2022-09-12] MEDS: oxyCODONE/ACETAMINOPHEN (*CRX) 5-325 MG TABLET 1 TABLET PO (06:15)
[2022-09-12 07:32] LABS: Glucose Point of Care 107 mg/dl (65-105)
[2022-09-12] MEDS: levoFLOXacin 750 MG TABLET PO (08:47)
[2022-09-12 11:44] LABS: Glucose Point of Care 132 mg/dl (65-105)
--- NOTE | 2022-09-12 11:54 | PM.DS ---
DS: Admitting Diagnosis Discharge Date September 12, 2022 Admitting Diagnosis Diverticulitis DS: Discharge Diagnosis Discharge Diagnosis (1) Acute diverticulitis of intestine: Code(s): K57.92 - Diverticulitis of intestine, part unspecified, without perforation or abscess without bleeding Status: Acute (2) Type 2 diabetes mellitus: Code(s): E11.9 - Type 2 diabetes mellitus without complications Status: Acute (3) Rheumatoid arthritis: Code(s): M06.9 - Rheumatoid arthritis, unspecified Status: Acute (4) Hyperlipidemia: Code(s): E78.5 - Hyperlipidemia, unspecified Status: Acute (5) Essential hypertension: Code(s): I10 - Essential (primary) hypertension Status: Acute Plan Acute diverticulitis Patient is found to have acute diverticulitis involving sigmoid colon, patient has been treated with Augmentin outpatient, Patient has a worsening abdomen pain the day before arrival in the ED, patient had leukocytosis, repeat CT scan reveals progression of diverticulitis without perforation or abscess Hold Augmentin, started Zosyn IV Optimize pain management Pain is improving, leukocytosis resolves May change to oral antibiotics tomorrow if condition continues to improve Start MiraLax p.o. Type 2 diabetes Home metformin Start insulin sliding scale a.c. q.h.s. during hospitalization Essential hypertension Patient is not on all home medication Blood pressure is controlled Hyperlipidemia Continue Lipitor at home dose Rheumatoid arthritis Hold Enbrel and prednisone p.o. during hospitalization because of severe infection of large intestine Patient may stay more than 2 midnight in hospital DS: Summary Hospital Course Hospital Course: Admitted for diverticulitis started on antibiotics improved significantly. Okay for discharge. Dhruv and Matthew on discharge Time Spent with Patient Time attestation: Total time spent providing and/or coordinating discharge services: Exam Narrative: GENERAL: Pleasant, in no acute distress. Well-nourished. - EYES: EOMI. Anicteric. - HENT: Moist mucous membranes. - LUNGS: Clear to auscultation bilaterally, no wheezing, rhonchi, or rales. - CARDIOVASCULAR: Regular rate and rhythm. No murmur. No JVD. - ABDOMEN: Soft, left lower quadrant tender and non-distended. No palpable masses. - EXTREMITIES: No edema. Peripheral pulses 2+. Non-tender. - NEUROLOGIC: No focal neurological deficits. CN II-XII grossly intact. - PSYCHIATRIC: Awake, Alert and oriented x 3. Appropriate mood and affect. - SKIN: No rashes or lesions. Warm. - LYMPH: No cervical lymphadenopathy. DS: Data Data Completed and Pending Labs on day of discharge: Labs from last 24 hours 09/12/22 09/12/22 09/11/22 11:39 07:28 19:19 POC Capillary Glucose 132 H 107 H 157 H 09/11/22 16:46 POC Capillary Glucose 136 H Discharge Plan Discharge Attending physician on discharge: Cristopher Klein Discharging Clinician: Cristopher Klein Patient Disposition: Home, Self-Care Activity: as tolerated Diet: as tolerated Patient Instructions: Antibiotic Form, Diverticulitis (DC), Pain Management in Older Adults (DC) Stand Alone Forms: General Discharge Information Follow-up/Referrals: David,TUYET Lopez [Primary Care Provider] - Keep Reg. Scheduled Appt. (Pt is to keep her previously scheduled appt on 10/10/22 at 11 am.) Discharge Medications: New metronidazole 500 mg tablet 500 mg PO Q8H Qty: 21 0RF levofloxacin 750 mg tablet 750 mg PO DAILY Qty: 7 0RF Continued Enbrel 50 mg/mL (1 mL) syringe 50 mg SUBCUT WEEKLY metformin 750 mg tablet extended release 24 hr 750 mg PO AC prednisone 5 mg tablet 5 mg PO DAILY PRN (Reason: RA) Date of admission: 09/09/22 07:41 Primary Care Provider: David,Makenzie Garcia Admitting Provider: Rad Redman Attending physician on admission: Jacky Redman
== END 2022-09-12 12:31 | disposition home or self-care (01) ==
LOC: ANHED 07:44 → ANH3MEDSUR 08:43
PROVIDERS: Preventive Medicine Aerospace Medicine; Admitting Provider Hospitalist; Emergency Provider Emergency Medicine; PCP Physician Assistant; Visit Provider Chiropractor
DX: K57.92 Diverticulitis of intestine, part unspecified, without perforation or abscess without bleeding (principal); E11.9 Type 2 diabetes mellitus without complications; M06.9 Rheumatoid arthritis, unspecified; E78.5 Hyperlipidemia, unspecified; I10 Essential (primary) hypertension; R30.0 Dysuria; D72.829 Elevated white blood cell count, unspecified; Z90.49 Acquired absence of other specified parts of digestive tract; Z79.52 Long term (current) use of systemic steroids; Z79.84 Long term (current) use of oral hypoglycemic drugs; Z79.899 Other long term (current) drug therapy
CPT/HCPCS: 36415; 74177; 80048; 80053; 81001; 82948; 83605; 85025; 87086; 96361; 96365; 96366; 96375; 96376; 99285; A9270; G0378; J1644; J2270; J2405; J2543; J7030; Q9967

== ENCOUNTER → 2022-10-09 11:48 | Outpatient (CLI) | payer MEDICARE, SELFPAY ==
--- NOTE | ~2022-10-09 | XR_ITS ---
EXAMINATION: XR chest 2V 10/09/2022 12:12 INDICATION: Nonspecific reaction to cell-mediated immunity. PROCEDURE: 2 view chest COMPARISON: 09/02/2021 FINDINGS: The lungs are clear. The cardiomediastinal silhouette is within normal limits. There are no pleural effusions. There is no pneumothorax suspected. IMPRESSION: 1: NO ACUTE CARDIOPULMONARY DISEASE. Reviewed, dictated and finalized at location B.
== END ==
PROVIDERS: PCP Physician Assistant; Visit Provider Pediatrics
DX: R76.12 Nonspecific reaction to cell mediated immunity measurement of gamma interferon antigen response without active tuberculosis (principal)
CPT/HCPCS: 71046

== ENCOUNTER 2022-11-07 07:01 | Day surgery (SDC) | payer MEDICARE, SELFPAY ==
[2022-10-17 14:09] VITALS: BMI 30.6
[2022-11-07 08:32] VITALS: BMI 28.7
[2022-11-07 08:34] VITALS: BP 126/69; PULSE 60; RESP 20; TEMP 36.4; O2SAT 99
[2022-11-07 08:50] LABS: Glucose Point of Care 113 mg/dl (65-105)
--- NOTE | 2022-11-07 08:53 | PM.HPGS ---
History of Present Illness History of Present Illness Consent: Risks, benefits, and alternatives have been discussed and questions answered. Patient agrees to proceed with procedure. Chief complaint: Diverticulitis-Large Intestine without Abscess Narrative: Makenzie Wu is a 67 year old female presents for colonoscopy. Patient's current weight appetite and bowel movements are normal. Patient denies abdominal pain. She has had no bleeding. Family history is noncontributory. Patient has a history of diverticulitis 2 months ago. This is now healed. She no longer has abdominal pain. Has completed course of antibiotics. Her bowel habits have returned to normal. Review of Systems Review of Systems: Review of systems noncontributory. [facility] Past Medical History Medical History Arthritis Diabetes Diverticulitis High cholesterol Hypertension Surgical History Surgical History History of cholecystectomy History of eye surgery Left Family History Family History Father Family history of malignant neoplasm, Onset Age: 104 Social History Social History Smoking status: Never smoker Alcohol intake: never Substance use: never Substance use type: does not use Lack of Transportation: No Lack of Food: Never True Current Housing: I Have Housing Concerned About Future Housing: No Difficulty Paying Gas/Electric Bills: No Difficulty Paying for Meds: No Currently Unemployed: No Education: Don't Know Difficulty w/ Childcare or Family Care: No Living arrangements: with family Occupation/Education: occupation Gender identity (if verbalized by the patient): Female Spiritual care concerns: No Meds Home Medications and Allergies Home Medications Medication Instructions Recorded Confirmed Type etanercept 50 mg/mL (1 mL) 50 mg subcut WEEKLY 03/31/19 11/07/22 History subcutaneous syringe (Enbrel) prednisone 5 mg tablet 5 mg PO DAILY PRN RA 05/22/20 11/07/22 History metformin 750 mg tablet,extended 750 mg PO AC 09/02/21 11/07/22 History release 24 hr Allergies Allergy/AdvReac Type Severity Reaction Status Date / Time No Known Allergies Allergy Verified 11/07/22 08:29 Vital Signs Vital Signs - 24 hr 11/07/22 08:34 Temperature 97.6 F Pulse Rate 60 Respiratory Rate 20 Blood Pressure 126/69 Pulse Oximetry 99 Oxygen Delivery Room Air Exam Narrative: Physical exam reveals patient to be alert. Vital signs stable. HEENT exam is unremarkable. Patient is anicteric. Lungs are clear to auscultation and percussion. Heart Is without murmur or extra sounds. Abdomen bowel sounds are present soft nontender with no hepatosplenomegaly. Digital external rectal exam normal. Assessment and Plan Assessment and plan (1) Diverticulitis large intestine: Code(s): K57.32 - Diverticulitis of large intestine without perforation or abscess without bleeding Status: Acute Assessment and Plan: Patient with recent episode of diverticulitis. Currently this appears to have resolved clinically. Follow-up colonoscopy to ensure resolution and no other explanation for symptoms is pending will be performed. Further recs after colonoscopy.
--- NOTE | 2022-11-07 09:15 | WPDANESEPPF ---
Anes - Initial Pre Proc Eval Procedure: Operation Date: 11/07/22 09:30 Proposed Procedures p Diagnostic Colonoscopy - Magdi Choi MD Date/Time: 11/07/22 09:15 Surgeon: Magdi Choi MD Pre Op Diagnosis: Diverticulitis-Large Intestine without Abscess Patient Data Age: 67 Gender: F Height: 1.57 m Weight: 71.3 kg Last Vital Signs Temp 36.4 C 11/07/22 08:34 Pulse 60 11/07/22 08:34 Resp 20 11/07/22 08:34 BP 126/69 11/07/22 08:34 Pulse Ox 99 11/07/22 08:34 O2 Del Method Room Air 11/07/22 08:34 Allergies Allergy/AdvReac Type Severity Reaction Status Date / Time No Known Allergies Allergy Verified 11/07/22 08:29 Home Medications Medication Instructions Recorded Confirmed Type etanercept 50 mg/mL (1 mL) 50 mg subcut WEEKLY 03/31/19 11/07/22 History subcutaneous syringe (Enbrel) prednisone 5 mg tablet 5 mg PO DAILY PRN RA 05/22/20 11/07/22 History metformin 750 mg tablet,extended 750 mg PO AC 09/02/21 11/07/22 History release 24 hr Laboratory Tests 11/07/22 08:39 POC Capillary Glucose 113 H mg/dl (65-105) Patient hx anesthesia problems: none Family hx anesthesia problems: none Results Review: All pre-operative results and documents have been reviewed as part of the pre-operative evaluation. [facility] Past Medical History Medical History Arthritis Diabetes Diverticulitis High cholesterol Hypertension Surgical History Surgical History History of cholecystectomy History of eye surgery Left Family History Family History Father Family history of malignant neoplasm, Onset Age: 104 Social History Social History Smoking status: Never smoker Alcohol intake: never Substance use: never Substance use type: does not use Lack of Transportation: No Lack of Food: Never True Current Housing: I Have Housing Concerned About Future Housing: No Difficulty Paying Gas/Electric Bills: No Difficulty Paying for Meds: No Currently Unemployed: No Education: Don't Know Difficulty w/ Childcare or Family Care: No Living arrangements: with family Occupation/Education: occupation Gender identity (if verbalized by the patient): Female Spiritual care concerns: No Anes - Eval Final PreProcedure Day of Procedure 11/07/22 09:15 Patient weight: overweight Heart: regular rate and rhythm Lungs: clear to auscultation Airway: Mallampati scale class III Neurological: alert and oriented Last oral intake: >/= 8 hours ASA classification: III Emergent: no Anesthetic plan: proceed Anesthesia type and monitoring: general GIVS and standard monitoring Results Review: All pre-operative results and documents have been reviewed as part of the pre-operative evaluation. Informed Consent: The patient's anesthetic plan and its attendant risks and benefits were discussed with the patient/family/POA. Questions were solicited and answers provided to the satisfaction of the patient/family/POA.
[2022-11-07] MEDS: LACTATED RINGERS 1,000 ML 150 ML IV CONT (09:24)
[2022-11-07 09:45] VITALS: BP 107/60; PULSE 61; RESP 12; O2SAT 97
[2022-11-07 09:55] VITALS: BP 106/68; PULSE 60; RESP 12; O2SAT 100
[2022-11-07 10:05] VITALS: BP 132/75; PULSE 75; RESP 16; O2SAT 100
--- NOTE | 2022-11-07 10:08 | SUR.PHASEII ---
DISCHARGE instructions given to patient and , interpreted. patient understands some Estonian. no c/o pain or discomfort. patient is sitting up and drinking water and shakeel crackers
--- NOTE | 2022-11-07 13:16 | WPDANESPN ---
Anes - Prog Note Post-Op Date/Time: 11/07/22 13:16 Cardiovascular status: normal Respiratory status: normal Airway patency: baseline Mental status: baseline Post-Op hydration status: normal Vital Signs: Last Vital Signs Temp 36.4 C 11/07/22 08:34 Pulse 75 11/07/22 10:05 Resp 16 11/07/22 10:05 BP 132/75 11/07/22 10:05 Pulse Ox 100 11/07/22 10:05 O2 Del Method Room Air 11/07/22 10:05 Pain Score (VAS): 0 I/O: Intake & Output 11/06/22 11/07/22 11/07/22 23:59 07:59 15:59 Intake Total 600 Balance 600 11/07/22 08:39 POC Capillary Glucose 113 H Patient Feedback: Patient satisfied with anesthetic care.
== END 2022-11-07 10:25 | disposition home or self-care (01) ==
PROVIDERS: PCP Physician Assistant; Visit Provider Internal Medicine Gastroenterology
PROC: 0DJD8ZZ Inspection of Lower Intestinal Tract, Via Natural or Artificial Opening Endoscopic (ICD-10-PCS; CPT 45378; principal; 2022-11-07 09:30)
DX: K57.30 Diverticulosis of large intestine without perforation or abscess without bleeding (principal); K64.8 Other hemorrhoids
CPT/HCPCS: 45378

== ENCOUNTER 2022-12-30 09:41 | Emergency (ER) | payer MEDICARE, SELFPAY ==
--- NOTE | ~2022-12-30 | CT_ITS ---
EXAMINATION: CT facial & cervical spine wo DATE: 12/30/2022 10:58 INDICATION: Patient tripped and fell yesterday and struck face. TECHNIQUE: Computed tomography (CT) of the facial bones and maxillofacial region as well as cervical spine was performed without intravenous contrast. Automated exposure control and iterative reconstruc tion technique were employed. Exam dose: 512.60 mGy-cm total exam DLP. COMPARISON: None. FINDINGS: The frontozygomatic sutures, orbital rims and clark, zygomatic arches, nasal bones and maxi llary bones and pterygoid plates as well as the mandible are all intact without fracture. Normal development and aeration of the paranasal sinuses and ostiomeatal units. Erika bullosa of the left middle nasal turbinate and intralamellar cell of both middle nasal turbinates. There is soft ti ssue swelling of the nasal turbinates bilaterally. There is rightward deviation of the nasal septum. There is reversal cervical curvature which may be due to positioning or muscle spasm. C1 and C2 are normally aligned and the odontoid process is intact. There is fusion of the apophyseal joints bilaterally at C2-C4. There is moderate degenerative disc disease at C5-6 and C6-7. There is uncovertebral joint spurring a s well at C5-6 and C6-7 and right at C3-4. No fracture or dislocation or locked facet or prevertebral soft tissue swelling is detected. IMPRESSION: No facial fracture Reversal cervical curvature which may be due to positioning or muscle spasm Cervical spondylosis; no fracture or dislocation or locked facet of the cervical spine Reviewed, dictated and finalized at [facility]. Reviewed, dictated and finalized at location B. FLUME FEEDING MACHINE OPERATOR IMPRESSION: No facial fracture Reversal cervical curvature which may be due to positioning or muscle spasm Cervical spondylosis; no fracture or dislocation or locked facet of the cervica l spine
--- NOTE | ~2022-12-30 | CT_ITS ---
EXAMINATION: CT brain wo con DATE: 12/30/2022 10:58 INDICATION: Fall. Head injury. Struck face. Possible loss of consciousness. TECHNIQUE: Computed tomography (CT) of the head was performed without intravenous contrast. The mA wa s adjusted according to patient size. Iterative reconstruction technique was employed. Exam dose: 60 5.33 mGy-cm total exam DLP. COMPARISON: None FINDINGS: Bilateral carotid siphon internal carotid artery calcifications. There is nonspecific dimin ished attenuation of the cerebral white matter, likely due to chronic small vessel ischemic changes. Bilateral basal ganglia calcifications. No intracranial mass lesion or hemorrhage or cerebrovascular accident, midline shift or mass effect i s detected. No subdural or epidural hematoma is detected. No fracture or bone destruction of the cranial vault. The mastoid air cells and included paranasal si nuses are unremarkable. IMPRESSION: Cerebral atherosclerosis and chronic small vessel ischemic changes of the cerebral white matter No acute intracranial abnormality or skull fracture Reviewed, dictated and finalized at [facility]. Reviewed, dictated and finalized at location B. OFFICE MARKUP CLERK
--- NOTE | ~2022-12-30 | XR_ITS ---
EXAMINATION: XR knee LT 3V DATE: 12/30/2022 11:16 INDICATION: Left knee pain. Fall. TECHNIQUE: 3 views of left knee were obtained. COMPARISON: None. FINDINGS: Bone alignment is normal. No fracture. There is mild tricompartmental osteoarthritis. There is chondrocalcinosis of the menisci. There is a small knee joint effusion. IMPRESSION: 1. Mild left knee osteoarthritis. 2. Small left knee joint effusion. Reviewed, dictated and finalized at location A. LABORER
--- NOTE | ~2022-12-30 | CT_ITS ---
EXAMINATION:CT diagnostic chest wo con DATE: 12/30/2022 10:58 INDICATION: Left anterior rib pain. TECHNIQUE: Computed tomography (CT) of the chest was performed without intravenous contrast. Automate d exposure control and iterative reconstruction technique were employed. The dose-length product (DLP ) was 205.45 mGy-cm. COMPARISON: Chest 2 views 10/09/2022 FINDINGS: There is mild scarring at right lung apex and in paraspinal right lower lobe. A calcified r ight lung nodule is consistent with old granulomatous disease. There is mild atelectasis bilaterally. No pleural effusion. The heart size is normal. No pericardial effusion. There are coronary artery ca lcifications. There is diffuse hepatic steatosis. There are changes of cholecystectomy. There is mild thoracic spondylosis. There is no rib fracture. IMPRESSION: 1. No etiology for the patient's symptoms. Reviewed, dictated and finalized at location A. K ABSORPTION FLOOR LAYER
--- NOTE | ~2022-12-30 | CT_ITS ---
EXAMINATION: CT thoracic lumbar wo con DATE: 12/30/2022 10:59 INDICATION: Back pain. Fall. TECHNIQUE: Computed tomography (CT) of the thoracic and lumbar spine was performed without intravenou s contrast. Automated exposure control and iterative reconstruction technique were employed. The dose -length product was 1269.79 mGy-cm. COMPARISON: None FINDINGS: CT THORACIC SPINE: Bone alignment is normal. Vertebral body heights and intervertebral disc heights a re normal. There are endplate osteophytes at many levels. There is multilevel facet joint osteoarthri tis, severe at a few levels. On the right, there is mild neural foraminal stenosis at T4-T5 and T10-T 11. On the left, there is mild neural foraminal stenosis at T10-T11. No central canal stenosis. CT LUMBAR SPINE: There are changes of cholecystectomy. There is 3 degrees dextrocurvature of lumbar s pine. Vertebral body heights are normal. There is mildly decreased disc height at L2-L3, L3-L4, L4-L5 , and L5-S1. The following disc levels are specifically discussed: L1-L2: The disc does not extend beyond the endplate margin. There is mild bilateral facet joint osteo arthritis. There is no neural foraminal stenosis. There is no central canal stenosis. L2-L3: The disc is bulging. There is severe right and mild left facet joint osteoarthritis. There is mild bilateral neural foraminal stenosis. There is mild central canal stenosis. L3-L4: The disc is bulging. There is mild bilateral facet joint osteoarthritis. There is mild right a nd moderate left neural foraminal stenosis. There is mild central canal stenosis. L4-L5: The disc is bulging. There is severe bilateral facet joint osteoarthritis. There is mild bilat eral neural foraminal stenosis. There is mild central canal stenosis. L5-S1: The disc is bulging. There is severe bilateral facet joint osteoarthritis. There is mild bilat eral neural foraminal stenosis. There is mild central canal stenosis. IMPRESSION: 1. No fracture. 2. Mild thoracic and lumbar spondylosis. Reviewed, dictated and finalized at location A. CAL STAFF SERVICES MANAGER
[2022-12-30 09:58] VITALS: BP 140/69; PULSE 63; RESP 18; O2SAT 99
--- NOTE | 2022-12-30 10:13 | ED.GENADULT ---
HPI - General Adult General Chief complaint: Fall Stated complaint: FALL,FACIAL L KNEE INJURY Time Seen by Provider: 12/30/22 09:52 Source: patient and family Mode of arrival: ambulatory Limitations: language barrier History of Present Illness HPI narrative: This is a 67-year-old female who presents to the ED with chief complaint of a fall that occurred yesterday. Her family is here and helping interpret for history taking. Patient was walking out of the gym when she accidentally stumbled on a branch on the sidewalk. She reports that she fell down face first and onto the left side of her body. She reports subsequent facial, left knee pain primarily. She also reports some neck pain and back pain. States she was able to ambulate after the fall. Reports surgical history of the left knee due to trauma in the distant past. Denies numbness, weakness or any further site of pain or injury. Related Data Home Medications Medication Instructions Recorded Confirmed etanercept 50 mg/mL (1 mL) 50 mg subcut WEEKLY 03/31/19 11/07/22 subcutaneous syringe (Enbrel) prednisone 5 mg tablet 5 mg PO DAILY PRN RA 05/22/20 11/07/22 metformin 750 mg tablet,extended 750 mg PO AC 09/02/21 11/07/22 release 24 hr Allergies Allergy/AdvReac Type Severity Reaction Status Date / Time No Known Allergies Allergy Verified 12/30/22 09:56 Review of Systems Review of Systems: All systems as dictated in [facility] Past Medical History Medical History Arthritis Diabetes Diverticulitis High cholesterol Hypertension Surgical History Surgical History History of cholecystectomy History of eye surgery Left Family History Family History Father Family history of malignant neoplasm, Onset Age: 104 Social History Social History Smoking status: Never smoker Alcohol intake: never Substance use: never Substance use type: does not use Lack of Transportation: No Lack of Food: Never True Current Housing: I Have Housing Concerned About Future Housing: No Difficulty Paying Gas/Electric Bills: No Difficulty Paying for Meds: No Currently Unemployed: No Education: Don't Know Difficulty w/ Childcare or Family Care: No Living arrangements: with family Occupation/Education: occupation Gender identity (if verbalized by the patient): Female Spiritual care concerns: No Exam Narrative: GENERAL: Well-appearing, well-nourished, and in no acute distress. HEAD: Normocephalic, atraumatic. EYES: PERRLA and EOMI. ENT: Nares clear, no rhinorrhea or epistaxis. Mucous membranes moist. Oropharynx without tonsillar hypertrophy exudate or other lesions. NECK: Supple. No adenopathy or masses. CHEST: No respiratory distress. Clear to auscultation. No wheezes rales or rhonchi. Mild chest wall tenderness, specifically at the left anterior superior ribs. No crepitus. Breath sounds equal. HEART: Regular rate and rhythm. No murmur heard. Normal peripheral pulses. ABDOMEN: Soft, nontender, nondistended, normal active bowel sounds. MSK: Mild tenderness to palpation throughout the cervical, thoracic and lumbar spine. No step-off or deformity. Mild tenderness to palpation to the left knee. She has full active range of motion of the left knee. MSK exam is otherwise intact. Soft compartments. SKIN: Warm, dry, no rash. Mild bruising to the left knee. Mild abrasions to the face. NEURO: Alert and oriented x3. No focal deficits. 5/5 strength and sensation in the upper and lower extremities. PSYCH: Normal mood and affect. Course Vital Signs Vital signs: Vital Signs Pulse Rate 63 12/30/22 09:58 Respiratory Rate 18 12/30/22 09:58 Blood Pressure 140/69 12/30/22 09:58 Pulse Oximetry 99
[2022-12-30 11:13] VITALS: BP 119/81; PULSE 55; RESP 18; O2SAT 99
[2022-12-30 12:00] VITALS: BP 129/72; PULSE 57; RESP 18; O2SAT 100
[2022-12-30 12:18] VITALS: BP 123/72; PULSE 57; RESP 18; O2SAT 99
== END 2022-12-30 12:20 | disposition home or self-care (01) ==
PROVIDERS: Emergency Provider Physician Assistant; PCP Physician Assistant
DX: S80.02XA Contusion of left knee, initial encounter (principal); S00.81XA Abrasion of other part of head, initial encounter; I10 Essential (primary) hypertension; E11.9 Type 2 diabetes mellitus without complications; E78.00 Pure hypercholesterolemia, unspecified; M19.90 Unspecified osteoarthritis, unspecified site; Z79.84 Long term (current) use of oral hypoglycemic drugs; Z90.49 Acquired absence of other specified parts of digestive tract; W18.09XA Striking against other object with subsequent fall, initial encounter; I67.2 Cerebral atherosclerosis; M47.812 Spondylosis without myelopathy or radiculopathy, cervical region; M17.12 Unilateral primary osteoarthritis, left knee; M47.816 Spondylosis without myelopathy or radiculopathy, lumbar region; M47.814 Spondylosis without myelopathy or radiculopathy, thoracic region
CPT/HCPCS: 70450; 70486; 71250; 72125; 72128; 72131; 73562; 99284

== ENCOUNTER 2023-04-16 14:59 | Outpatient (CLI) | payer MEDICARE, SELFPAY ==
--- NOTE | ~2023-04-16 | XR_ITS ---
EXAMINATION: XR chest 2V DATE: 04/16/2023 15:38 INDICATION: Cough TECHNIQUE: PA and lateral views of the chest are obtained. COMPARISON: 10/09/2022 FINDINGS: The lungs are free of acute opacities. No pleural effusion or pneumothorax. The cardiomedia stinal silhouette is normal. There is mild thoracic spondylosis. IMPRESSION: 1. No acute cardiopulmonary abnormality. Reviewed, dictated and finalized at location F. ING MACHINE OPERATOR ELECTROSLAG
== END 2023-04-16 15:00 ==
LOC: MICIMG 15:01
PROVIDERS: PCP Physician Assistant; Visit Provider Physician Assistant
DX: R09.89 Other specified symptoms and signs involving the circulatory and respiratory systems (principal)
CPT/HCPCS: 71046

== ENCOUNTER 2023-07-23 07:08 | Day surgery (SDC) | payer MEDICARE, SELFPAY ==
[2023-07-04 12:14] VITALS: BMI 31.1
[2023-07-23 08:08] VITALS: BP 127/71; PULSE 65; RESP 16; TEMP 36.6; O2SAT 98
--- NOTE | 2023-07-23 08:17 | WPDHPUPDATE1 ---
History and Physical Update Update Date/Time: 07/23/23 08:17 Patient continues to have episodes of epigastric pain along with gas and belching. This occurs intermittently. Had episode last night but had not had episode for several weeks. Patient states episodes last for 4hours but continues to feel somewhat queasy for brief time after has had episodes like this for perhaps 8 years. States he becomes worse after eating greasy foods. Somewhat worse with anxiety. It improved somewhat on taking an unknown pill that settles her stomach. Proceed with EGD as scheduled today. History and Physical has been reviewed, including an updated exam of the patient. There are NO changes in the patient's condition. Risks, benefits, and alternatives have been discussed and questions answered. Patient agrees to proceed with procedure.
[2023-07-23 08:23] LABS: Glucose Point of Care 178 mg/dl (65-105)
[2023-07-23] MEDS: LACTATED RINGERS 1,000 ML 150 ML IV CONT (08:23)
--- NOTE | 2023-07-23 08:31 | WPDANESEPPF ---
Anes - Initial Pre Proc Eval Procedure: Operation Date: 07/23/23 09:30 Proposed Procedures p Esophagogastroduodenoscopy - Magdi Choi MD Date/Time: 07/23/23 08:31 Surgeon: Magdi Choi MD Pre Op Diagnosis: Epigastric pain, eructation Patient Data Age: 68 Gender: F Height: 1.57 m Weight: 75.9 kg Last Vital Signs Temp 36.6 C 07/23/23 08:08 Pulse 65 07/23/23 08:08 Resp 16 07/23/23 08:08 BP 127/71 07/23/23 08:08 Pulse Ox 98 07/23/23 08:08 O2 Del Method Room Air 07/23/23 08:08 Allergies Allergy/AdvReac Type Severity Reaction Status Date / Time No Known Allergies Allergy Verified 07/23/23 08:07 Home Medications Medication Instructions Recorded Confirmed Type etanercept 50 mg/mL (1 mL) 50 mg subcut WEEKLY 03/31/19 07/23/23 History subcutaneous syringe (Enbrel) prednisone 5 mg tablet 5 mg PO DAILY PRN RA 05/22/20 07/23/23 History metformin 750 mg tablet,extended 750 mg PO AC 09/02/21 07/23/23 History release 24 hr meloxicam 15 mg tablet 15 mg PO DAILY 07/03/23 07/23/23 History ergocalciferol (vitamin D2) 1,250 1,250 mcg PO WEEKLY 07/09/23 07/23/23 History mcg (50,000 unit) capsule Laboratory Tests 07/23/23 08:18 POC Capillary Glucose 178 H mg/dl (65-105) Patient hx anesthesia problems: none Family hx anesthesia problems: none Results Review: All pre-operative results and documents have been reviewed as part of the pre-operative evaluation. [facility] Past Medical History Medical History Arthritis Diabetes Diverticulitis Epigastric pain High cholesterol Hypertension Surgical History Surgical History History of cholecystectomy History of eye surgery Left Family History Family History Father Family history of malignant neoplasm, Onset Age: 104 Social History Social History Smoking status: Never smoker Alcohol intake: never Substance use: never Substance use type: does not use Lack of Transportation: No Lack of Food: Never True Current Housing: I Have Housing Concerned About Future Housing: No Difficulty Paying Gas/Electric Bills: No Difficulty Paying for Meds: No Currently Unemployed: No Education: Don't Know Difficulty w/ Childcare or Family Care: No Living arrangements: with family Occupation/Education: occupation Gender identity (if verbalized by the patient): Female Spiritual care concerns: No Anes - Eval Final PreProcedure Day of Procedure 07/23/23 08:31 Patient weight: overweight Heart: regular rate and rhythm Lungs: clear to auscultation Airway: Mallampati scale class III Neurological: alert and oriented Last oral intake: >/= 8 hours ASA classification: III Emergent: no Anesthetic plan: proceed Anesthesia type and monitoring: general GIVS and standard monitoring Results Review: All pre-operative results and documents have been reviewed as part of the pre-operative evaluation. Informed Consent: The patient's anesthetic plan and its attendant risks and benefits were discussed with the patient/family/POA. Questions were solicited and answers provided to the satisfaction of the patient/family/POA.
[2023-07-23 09:27] VITALS: BP 119/71; PULSE 66; RESP 16; O2SAT 97
[2023-07-23 09:50] VITALS: BP 110/68; PULSE 59; RESP 16; O2SAT 98
--- NOTE | 2023-07-23 10:56 | WPDANESPN ---
Anes - Prog Note Post-Op Date/Time: 07/23/23 10:56 Cardiovascular status: normal Respiratory status: normal Airway patency: baseline Mental status: baseline Post-Op hydration status: normal Vital Signs: Last Vital Signs Temp 36.6 C 07/23/23 08:08 Pulse 59 L 07/23/23 09:50 Resp 16 07/23/23 09:50 BP 110/68 07/23/23 09:50 Pulse Ox 98 07/23/23 09:50 O2 Del Method Room Air 07/23/23 09:50 Pain Score (VAS): 0 I/O: Intake & Output 07/22/23 07/23/23 07/23/23 23:59 07:59 15:59 Intake Total 100 Balance 100 07/23/23 08:18 POC Capillary Glucose 178 H Patient Feedback: Patient satisfied with anesthetic care.
== END 2023-07-23 10:06 | disposition home or self-care (01) ==
PROVIDERS: PCP Physician Assistant; Visit Provider Internal Medicine Gastroenterology
PROC: 0DJ08ZZ Inspection of Upper Intestinal Tract, Via Natural or Artificial Opening Endoscopic (ICD-10-PCS; CPT 43235; principal; 2023-07-23 09:30)
DX: R10.13 Epigastric pain (principal)
CPT/HCPCS: 43239

== ENCOUNTER 2023-07-23 08:17 | Outpatient (NON) | payer MEDICARE, SELFPAY | END 2023-07-23 08:18 | disposition home or self-care (01) | LOC: ANHLAB 07-24 08:18 | PROVIDERS: PCP Physician Assistant; Visit Provider Internal Medicine Gastroenterology | DX: K29.50 Unspecified chronic gastritis without bleeding (principal) | CPT/HCPCS: 88305 ==

== ENCOUNTER 2023-10-01 10:07 | Outpatient (CLI) | payer MEDICARE, SELFPAY ==
--- NOTE | ~2023-10-01 | MR_ITS ---
EXAMINATION: MR lumbar spine wo con DATE: 10/01/2023 11:02 INDICATION: Low back pain. Hip pain. TECHNIQUE: Magnetic resonance imaging (MRI) of the lumbar spine was performed without intravenous con trast. Sequences included sagittal T2-weighted FSE, sagittal T2-weighted FS FSE, sagittal T1-weighted FSE, and axial T2-weighted FSE. COMPARISON: CT dated 12/30/2022 FINDINGS: 5 degrees lumbar dextrocurvature. 7 mm right lateral listhesis L3 on L4. 2 mm anterolisthesis L2 on L 3. Unchanged minimal anterior vertebral body height loss at L3. Remaining vertebral body heights are normal. Schmorl's node along the inferior endplate of L3. Normal marrow signal. Disc desiccation and mild disc height loss at L2-L3 through L5-S1. There are annular fissures at each of these levels. The conus medullaris terminates at L1-L2. There is normal signal in the caudal spinal cord. Paravertebra l soft tissues are unremarkable. The following disc levels are specifically discussed: T12-L1: The disc does not extend beyond the endplate margin. There is mild right and moderate left fa cet joint osteoarthritis. There is no neural foraminal stenosis. There is no central canal stenosis. L1-L2: Annular fissure and very small central disc protrusion. There is moderate bilateral facet join t osteoarthritis. There is no neural foraminal stenosis. There is minimal central canal stenosis. L2-L3: Disc is bulging with annular fissure and superimposed left subarticular zone disc extrusion wi th disc material extending 5 mm cephalad to the level of the inferior endplate of L2. There is hypert rophy of the ligamentum flavum. There is mild left and severe right facet joint osteoarthritis. Ther e is mild bilateral neural foraminal stenosis. There is moderate central canal stenosis. L3-L4: Disc is bulging with superimposed left foraminal zone disc protrusion. There is mild bilateral facet joint osteoarthritis. There is mild right and moderate left neural foraminal stenosis. There i s mild to moderate central canal stenosis with narrowing of the lateral recesses, left greater than r ight. L4-L5: Disc is bulging. There is hypertrophy of the ligamentum flavum. There is moderate left and se yadira right facet joint osteoarthritis. There is moderate right and mild to moderate left neural omid inal stenosis. There is mild to moderate central canal stenosis. L5-S1: Disc is bulging. There is moderate right and moderate to severe left facet joint osteoarthriti s. There is moderate bilateral neural foraminal stenosis. There is minimal central canal stenosis. IMPRESSION: 1. Mild lumbar spondylosis most notable for moderate central canal stenosis at L2-L3 and multilevel b ilateral mild and moderate neural foraminal stenosis. Reviewed, dictated and finalized at location A. IMPRESSION: 1. Mild lumbar spondylosis most notable for moderate central canal stenosis at L2-L3 and multilevel bilateral mild and moderate neural foraminal stenosis.
--- NOTE | ~2023-10-01 | MR_ITS ---
EXAMINATION: MR cervical spine wo con DATE: 10/01/2023 10:53 INDICATION: Cervicalgia TECHNIQUE: Magnetic resonance imaging (MRI) of the cervical spine was performed without intravenous c ontrast. Sequences included sagittal T2-weighted FSE, sagittal T2-weighted FS FSE, sagittal T1-weight ed FSE, axial MERGE and axial T2-weighted FSE. COMPARISON: Cervical spine CT dated 12/30/2022 FINDINGS: Likely positional straightening of the normal cervical lordosis. No spondylolisthesis or facet sublux ation. Vertebral body heights are normal. Bone marrow signal intensity is normal. Mild disc height loss at C5-C6 and C6-C7 with annular fissures at both levels. Cord signal intensity is normal. Cervic al soft tissues are unremarkable. The following disc levels are specifically discussed: C2-C3: The disc does not extend beyond the endplate margin. There is mild right uncovertebral and fac et joint osteoarthritis. There is fusion across the left uncovertebral and left facet joints. There i s no neural foraminal stenosis. There is no central canal stenosis. C3-C4: The disc does not extend beyond the endplate margin. There is mild left uncovertebral joint os teoarthritis. There is fusion across the right facet and uncovertebral joints. There is mild left and moderate right neural foraminal stenosis. There is no central canal stenosis. C4-C5: Disc is bulging. There is mild left and moderate right uncovertebral joint osteoarthritis. The re is moderate left and severe right facet joint osteoarthritis. There is mild left and moderate righ t neural foraminal stenosis. There is mild central canal stenosis with mild indentation of the ventra l surface of the cord. C5-C6: Disc is bulging. There is moderate bilateral uncovertebral joint osteoarthritis. There is mild left and moderate to severe right facet joint osteoarthritis. There is mild left and moderate right neural foraminal stenosis. There is mild to moderate central canal stenosis with posterior indentatio n of the ventral surface of the cord as well as the right dorsal margin of the cord related to the fa cet osteoarthritis. C6-C7: Disc is bulging. There is moderate bilateral uncovertebral joint osteoarthritis. There is mild right and moderate left facet joint osteoarthritis. There is moderate bilateral neural foraminal du nosis. There is mild central canal stenosis with mild indentation of the ventral surface of the cord. C7-T1: The disc does not extend beyond the endplate margin. There is no uncovertebral joint osteoarth ritis. There is mild to moderate bilateral facet joint osteoarthritis. There is no neural foraminal s tenosis. There is no central canal stenosis. IMPRESSION: 1. Mild cervical spondylosis. Reviewed, dictated and finalized at location A.
== END 2023-10-01 10:08 ==
LOC: GOSHIMG 10:10
PROVIDERS: Visit Provider Physician Assistant
DX: M47.892 Other spondylosis, cervical region (principal); M47.896 Other spondylosis, lumbar region
CPT/HCPCS: 72141; 72148

== ENCOUNTER 2023-10-10 11:40 | Outpatient (CLI) | payer MEDICARE, SELFPAY ==
--- NOTE | ~2023-10-10 | DEXA_ITS ---
Bone Density Report Name: ZARI SALVADOR Age: 68 Sex: Female Ethnicity: White Date of : 1955 Indication: postmenopausal; screening for osteoporosis; prior fracture; rheumatoid arthritis; Referring Provider: ROSS, GRETA Study: Bone densitometry was performed. Exam Date: October 10, 2023 Accession number: [id number] Bone Density: Region BMD T-score Z-score Classification AP Spine(L2, L3, L4) 0.843 -2.1 -0.2 Osteopenia Femoral Neck (Left) 0.758 -0.8 0.8 Normal Total Hip (Left) 0.966 0.2 1.5 Normal Femoral Neck (Right) 0.729 -1.1 0.5 Osteopenia Total Hip (Right) 0.971 0.2 1.6 Normal Femoral Neck Mean 0.743 -1.0 0.7 Normal Total Hip Mean 0.968 0.2 1.5 Normal World Health Organization criteria for BMD impression classify patients as: Normal (T-score at or above -1.0), Osteopenia (T-score between -1.0 and -2.5), or Osteoporosis (T-score at or below -2.5). 10-year Fracture Risk(1): Major Osteoporotic Fracture 17% Hip Fracture 1.6% Reported Risk Factors: [place] (), Neck BMD=0.729, BMI=31.2, previous fracture, rheumatoid arthritis (1) FRAX(R) Version 3.08. Fracture probability calculated for an untreated patient. Fracture probability may be lower if the patient has received treatment. Clinical Information Provided by Patient: Has had a low trauma fracture Has rheumatoid arthritis Has used the following medications: Vitamin D, Calcium Patient maximum height was 62 Menopause Age: 52 Drinks caffeinated beverages Onset of menses at age 11 Number of children 5 Impression: The patient has low bone mass, based on the Total Spine T-score. The patient has risk factors, including: previous fracture. Discussion: BONE DENSITY IS LOW AT ONE OR MORE SKELETAL SITES. This patient's lowest T-score is low at one or more skeletal sites. It meets the World Health Organization's (WHO) criteria for ?low bone mass? (T-score between -1.0 and -2.5). The patient's 10-year risk of fracture as calculated by FRAX is less than the threshold where pharmacological therapy is recommended by the National Osteoporosis Foundation (NOF). However, all treatment decisions require clinical judgment and consideration of individual patient factors, including patient preferences, comorbidities, previous drug use, risk factors not captured in the FRAX model (e.g., frailty, falls, vitamin D deficiency, increased bone turnover, interval significant decline in bone density) and possible under or overestimation of fracture risk by FRAX. The patient should follow a healthful lifestyle (good nutrition with adequate calcium and vitamin D, and appropriate weight-bearing exercise). Follow-Up: Consider repeating this study in 2 to 3 years to reassess this patient's status, or sooner if there is s
== END 2023-10-10 11:41 | disposition home or self-care (01) ==
LOC: CHSIMG 11:41
PROVIDERS: PCP Physician Assistant; Visit Provider Physician Assistant
DX: Z78.0 Asymptomatic menopausal state (principal); M85.89 Other specified disorders of bone density and structure, multiple sites
CPT/HCPCS: 77080

== ENCOUNTER 2023-11-29 09:03 | Emergency (ER) | payer MEDICARE, SELFPAY ==
[2023-11-29 09:11] VITALS: BP 145/73; PULSE 68; RESP 20; TEMP 36.4; O2SAT 100
--- NOTE | 2023-11-29 10:10 | ED.NAVMDI ---
HPI - Nausea/Vomiting/Diarrhea General Chief complaint: Nausea/Vomiting/Diarrhea Stated complaint: vomiting, diarrhea Time Seen by Provider: 11/29/23 10:02 History of Present Illness HPI Narrative: patient presenting with nausea, vomiting, diarrhea for the last few days; last thing she had eaten was Taco Castillo, did vomit yesterday and today. Periumbilical discomfort. No chest pain. Related Data Home Medications Medication Instructions Recorded Confirmed etanercept 50 mg/mL (1 mL) 50 mg subcut WEEKLY 03/31/19 08/26/23 subcutaneous syringe (Enbrel) prednisone 5 mg tablet 5 mg PO DAILY PRN RA 05/22/20 08/26/23 metformin 750 mg tablet,extended 750 mg PO AC 09/02/21 08/26/23 release 24 hr meloxicam 15 mg tablet 15 mg PO DAILY 07/03/23 08/26/23 ergocalciferol (vitamin D2) 1,250 1,250 mcg PO WEEKLY 07/09/23 08/26/23 mcg (50,000 unit) capsule Allergies Allergy/AdvReac Type Severity Reaction Status Date / Time No Known Allergies Allergy Verified 08/26/23 11:30 Review of Systems Review of Systems: All systems reviewed & are unremarkable except as noted in HPI and below PMFSH Past Medical History Medical History Arthritis Diabetes Diverticulitis Epigastric pain High cholesterol Hypertension Surgical History Surgical History History of cholecystectomy History of eye surgery Left Family History Family History Father Family history of malignant neoplasm, Onset Age: 104 Social History Social History Smoking status: Never smoker Alcohol intake: never Substance use: never Substance use type: does not use Lack of Transportation: No Lack of Food: Never True Current Housing: I Have Housing Concerned About Future Housing: No Difficulty Paying Gas/Electric Bills: No Difficulty Paying for Meds: No Currently Unemployed: No Education: Don't Know Difficulty w/ Childcare or Family Care: No Living arrangements: with family Occupation/Education: occupation Gender identity (if verbalized by the patient): Female Spiritual care concerns: No Exam Narrative: EXAMINATION OF ORGAN SYSTEMS/BODY AREAS: Constitutional: Vital signs per nursing GENERAL:[No acute distress, non-toxic appearing.] HEAD: Normal with no signs of head trauma. EYES: EOMI, conjunctiva normal ENT: Hearing grossly intact LUNGS: Nonlabored breathing. HEART: [Regular rate and rhythm] ABD: [Soft], very minimally tender epigastric abdomen EXT: Normal range of motion SKIN: [No rashes or lesions.] NEURO: [Alert and oriented x 3. No gross focal sensory or strength deficits.] PSYCH: Normal affect Course Vital Signs Vital signs: Vital Signs Temperature 97.6 F 11/29/23 09:11 Pulse Rate 68 11/29/23 09:11 Respiratory Rate 20 11/29/23 09:11 Blood Pressure 145/73 H 11/29/23 09:11 Pulse Oximetry 100 11/29/23 09:11 Oxygen Delivery Room Air 11/29/23 09:11 Temperature 97.6 F 11/29/23 09:11 Pulse Rate 66 11/29/23 11:13 Respiratory Rate 18 11/29/23 11:13 Blood Pressure 112/70 11/29/23 11:13 Pulse Oximetry 98 11/29/23 11:13 Oxygen Delivery Room Air 11/29/23 09:11 MDM - Nausea/Vomiting/Diarrhea MDM Narrative Medical decision making narrative: patient with nausea, vomiting and diarrhea with some abdominal cramping ongoing for last few days, she is otherwise well appearing, abdomen soft with some very minimal tenderness to the epigastric abdomen, she has no chest pain I have low concern for ACS. He is given fluids, nausea medicine, loperamide, Protonix, on re-evaluation she states she feels much better now, no longer nauseous, pain is resolved. Agreeable to outpatient management, she has gastroenterology follow-up and agrees to come back for any further issues, at bedside. Lab Data 11/29/23 10:38 11/29/23 10:38 Labs: Lab Results 11/29/23 Range/Units 10:38 WBC 8.6 (4.5-10.0) K/mm3 RBC 4.89 (4.2-5.4) M/mm3 Hgb 14.8 (12.0-15.0) g/dL Hct 44.6 (37.0-47.0) % MCV 91.2 (80-100) fl MCH 30.3 (26-34) pg MCHC 33.2 (32-36) g/dl RDW 12.9 (11.5-14.5) % Plt Count 175 (150-375) k/mm3 MPV 9.6 (7.4-10.4) fl Immature Gran % (Auto) 0.4 (0-0.5) % Neut % (Auto) 67.8 (45.5-73.1) % Lymph % (Auto) 24.2 (18.3-44.2) % [place] % (Auto) 7.0 (2.6-8.5) % Eos % (Auto) 0.5 (0-4.4) % Baso % (Auto) 0.1 L (0.2-1.2) % Lymph # (Auto) 2.07 (0.9-3.2) K/mm3 [place] # (Auto) 0.6 (0.1-0.6) K/mm3 Eos # (Auto) 0.0 (0-0.3) K/mm3 Baso # (Auto) 0.0 (0.0-0.1) K/mm3 Abs Immat Gran (auto) 0.03 (0.00-0.031) K/mm3 Absolute Neuts (auto) 5.8 (1.3-6.7) K/mm3 Absolute Nucleated RBC 0.000 (0.0-0.012) K/mm3 Nucleated RBC % 0.0 (0.0-0.2) % Sodium 138 (137-145) mmol/L Potassium 3.4 (3.4-5.0) mmol/L Chloride 102 (98-107) mmol/L Carbon Dioxide 26 (22-30) mmol/L Anion Gap 10 (4-12) mmol/L BUN 15 D (7-17) mg/dL Creatinine 0.40 L (0.7-1.0) mg/dL Estim Creat Clear Calc 104 ml/min Estimated GFR > 60 (59 - ) Glucose 88 (65-110) mg/dL Calcium 9.3 (8.4-10.2) mg/dL Total Bilirubin 0.7 (0.2-1.3) mg/dL AST 67 H (14-36) U/L ALT 85 H (6-35) U/L Alkaline Phosphatase 162 H (38-126) U/L Total Protein 8.0 (6.3-8.2) g/dL Albumin 4.5 (3.5-5.1) g/dL Lipase 113 (23-300) U/L Discharge Plan Discharge Clinical Impression: Nausea, vomiting, and diarrhea Patient Disposition: Home, Self-Care Condition: Stable Instructions: Antibiotic Form, Acute Nausea and Vomiting (ED), Acute Diarrhea (ED) Additional Instructions: Please follow up with your doctor; you can always return for any further issues. Prescriptions: New alum-mag hydroxide-simeth [Maalox Advanced] 200-200-20 mg/5 mL suspension 10 ml PO QID PRN (Reason: dyspepsia) Qty: 200 0RF Rx Instructions: administer between meals and at bedtime ondansetron 4 mg tablet,disintegrating 4 mg PO Q8H PRN (Reason: nausea and vomiting) Qty: 10 0RF loperamide 2 mg capsule 2 mg PO Q6H PRN (Reason: loose stool) Qty: 10 0RF No Action Enbrel 50 mg/mL (1 mL) syringe 50 mg SUBCUT WEEKLY metformin 750 mg tablet extended release 24 hr 750 mg PO AC prednisone 5 mg tablet 5 mg PO DAILY PRN (Reason: RA) meloxicam 15 mg tablet 15 mg PO DAILY ergocalciferol (vitamin D2) 1,250 mcg (50,000 unit) capsule 1,250 mcg PO WEEKLY famotidine 20 mg tablet 20 mg PO Q12H 30 Days Qty: 60 12RF Follow-up/Referrals: David,TUYET Lopez [Primary Care Provider] -
[2023-11-29] MEDS: LACTATED RINGERS 1,000 ML 999 ML IV CONT (10:33)
[2023-11-29] MEDS: ONDANSETRON INJ 4 MG/2 ML VIAL IV PUSH (10:33)
[2023-11-29] MEDS: PANTOPRAZOLE SODIUM IV 40 MG VIAL IV PUSH (10:35)
[2023-11-29] MEDS: LOPERAMIDE HCL 2 MG CAPSULE 4 MG PO (10:37)
[2023-11-29 10:45] LABS: Basophils Percent Auto 0.1 % (0.2-1.2); Eosinophils Percent Auto 0.5 % (0-4.4); Hematocrit 44.6 % (37.0-47.0); Hemoglobin 14.8 g/dL (12.0-15.0); Immature Granulocyte Absolute 0.03 K/mm3 (0.00-0.031); Immature Granulocyte Percent A 0.4 % (0-0.5); Lymphocytes Absolute Auto 2.07 K/mm3 (0.9-3.2); Lymphocytes Percent Auto 24.2 % (18.3-44.2); Mean Corpuscular HGB Conc 33.2 g/dl (32-36); Mean Corpuscular Hemoglobin 30.3 pg (26-34); Mean Corpuscular Volume 91.2 fl (80-100); Mean Platelet Volume 9.6 fl (7.4-10.4); Monocytes Absolute Auto 0.6 K/mm3 (0.1-0.6); Neutrophils Absolute Auto 5.8 K/mm3 (1.3-6.7); Neutrophils Percent Auto 67.8 % (45.5-73.1); Platelet Count Result 175 k/mm3 (150-375); Red Blood Count 4.89 M/mm3 (4.2-5.4); Red Cell Distribution Width 12.9 % (11.5-14.5); White Blood Count 8.6 K/mm3 (4.5-10.0)
[2023-11-29 10:59] LABS: Alanine Aminotransferase 85 U/L (6-35); Albumin Level 4.5 g/dL (3.5-5.1); Alkaline Phosphatase 162 U/L (38-126); Anion Gap 10 mmol/L (4-12); Aspartate Amino Transferase 67 U/L (14-36); Bilirubin,Total 0.7 mg/dL (0.2-1.3); Blood Urea Nitrogen 15 mg/dL (7-17); Calcium 9.3 mg/dL (8.4-10.2); Carbon Dioxide 26 mmol/L (22-30); Chloride 102 mmol/L (98-107); Estimated CRCL calculation 104 ml/min; Estimated Glomerular Filt Rate > 60; Glucose 88 mg/dL (65-110); Lipase 113 U/L (23-300); Potassium 3.4 mmol/L (3.4-5.0); Sodium 138 mmol/L (137-145)
[2023-11-29 11:13] VITALS: BP 112/70; PULSE 66; RESP 18; O2SAT 98
== END 2023-11-29 11:27 | disposition home or self-care (01) ==
PROVIDERS: Emergency Provider Emergency Medicine; PCP Physician Assistant
DX: R11.2 Nausea with vomiting, unspecified (principal); R19.7 Diarrhea, unspecified; E11.9 Type 2 diabetes mellitus without complications; E78.00 Pure hypercholesterolemia, unspecified; M19.90 Unspecified osteoarthritis, unspecified site; Z90.49 Acquired absence of other specified parts of digestive tract; Z79.84 Long term (current) use of oral hypoglycemic drugs; Z79.620 Long term (current) use of immunosuppressive biologic
CPT/HCPCS: 36415; 80053; 83690; 85025; 96361; 96374; 96375; 99284; A9270; J2405; J2470; J7120

== ENCOUNTER 2023-12-04 09:00 | Emergency (ER) | payer MEDICARE, SELFPAY ==
[2023-12-04 09:09] VITALS: BP 116/60; PULSE 59; RESP 19; TEMP 36.7; O2SAT 99
--- NOTE | 2023-12-04 09:16 | ED.NAVMDI ---
HPI - Nausea/Vomiting/Diarrhea General Chief complaint: Nausea/Vomiting/Diarrhea Stated complaint: Diarrhea Time Seen by Provider: 12/04/23 09:16 Source: patient Mode of arrival: ambulatory Limitations: no limitations History of Present Illness HPI Narrative: 68-year-old female presents with complaint of diarrhea for 2 weeks. Was seen at the ER on 11/28 for diarrhea. Given loperamide, Zofran and Maalox. Reports medications not helping. Last 2 days now having black stools, left lower quadrant abdominal pain. States drinking plenty of water, no nausea vomiting. Afebrile. All systems reviewed and negative except as noted above. Related Data Home Medications Medication Instructions Recorded Confirmed etanercept 50 mg/mL (1 mL) 50 mg subcut WEEKLY 03/31/19 12/04/23 subcutaneous syringe (Enbrel) prednisone 5 mg tablet 5 mg PO DAILY PRN RA 05/22/20 12/04/23 metformin 750 mg tablet,extended 750 mg PO AC 09/02/21 12/04/23 release 24 hr meloxicam 15 mg tablet 15 mg PO DAILY 07/03/23 12/04/23 ergocalciferol (vitamin D2) 1,250 1,250 mcg PO WEEKLY 07/09/23 12/04/23 mcg (50,000 unit) capsule empagliflozin 25 mg tablet 25 mg PO DAILY 12/04/23 12/04/23 (Jardiance) Allergies Allergy/AdvReac Type Severity Reaction Status Date / Time No Known Allergies Allergy Verified 12/04/23 09:02 Review of Systems Review of Systems: CONSTITUTIONAL: Denies fever, chills, or sweats. EYES: Denies visual changes, redness, or discharge. ENT: Denies rhinorrhea, congestion, sore throat, or otalgia. CARDIOVASCULAR: Denies chest pain, palpitations, or edema. RESPIRATORY: Denies cough or dyspnea. GASTROINTESTINAL: Reports left lower quadrant abdominal pain, black stools. Denies nausea, vomiting GENITOURINARY: Denies dysuria or hematuria. SKIN: Denies rash or itching. MUSCULOSKELETAL: Denies back pain, joint pain, or myalgia. NEUROLOGIC: Denies headache, numbness, or weakness. PSYCHIATRIC: Denies anxiety or depression. All other systems reviewed are negative, except as documented in HPI. [facility] Past Medical History Medical History Arthritis Diabetes Diverticulitis Epigastric pain High cholesterol Hypertension Surgical History Surgical History History of cholecystectomy History of eye surgery Left Family History Family History Father Family history of malignant neoplasm, Onset Age: 104 Social History Social History Smoking status: Never smoker Alcohol intake: never Substance use: never Substance use type: does not use Lack of Transportation: No Lack of Food: Never True Current Housing: I Have Housing Concerned About Future Housing: No Difficulty Paying Gas/Electric Bills: No Difficulty Paying for Meds: No Currently Unemployed: No Education: Don't Know Difficulty w/ Childcare or Family Care: No Living arrangements: with family Occupation/Education: occupation Gender identity (if verbalized by the patient): Female Spiritual care concerns: No Comments At time of signature, agree with nursing past medical, surgical, social and family history. There is no relevant family history pertinent to the presenting complaint. Exam Narrative: GENERAL: This is a well-nourished, well-developed patient, in no apparent distress. HEAD: normocephalic, atraumatic. EYES: PERRL. Sclera clear/white. Vision is grossly intact. EARS: External ears normal NOSE: External nose normal NECK: Neck supple, non-tender without lymphadenopathy, masses or thyromegaly. CARDIOVASCULAR: Regular rate and rhythm without murmurs, gallops, or rubs. RESPIRATORY: Clear to auscultation. Breath sounds equal bilaterally. No wheezes, rales, or rhonchi. GASTROINTESTINAL: Abdomen soft, tenderness left lower quadr
== END 2023-12-04 09:39 | disposition short-term general hospital (02) ==
PROVIDERS: Emergency Provider Nurse Practitioner Family; PCP Physician Assistant
DX: R10.32 Left lower quadrant pain (principal); K92.1 Melena; M19.90 Unspecified osteoarthritis, unspecified site; E11.9 Type 2 diabetes mellitus without complications; Z79.84 Long term (current) use of oral hypoglycemic drugs; I10 Essential (primary) hypertension; E78.00 Pure hypercholesterolemia, unspecified
CPT/HCPCS: 99212; G0463

== ENCOUNTER 2023-12-04 10:01 | Emergency (ER) | payer MEDICARE, SELFPAY ==
--- NOTE | ~2023-12-04 | CT_ITS ---
CT of the Abdomen and Pelvis: Indication: Abdominal pain Technique: 2.5 mm axial scans were obtained through the abdomen and pelvis following intravenous adm inistration of 100 cc of Omnipaque 350. Dose reduction technique was used on this scan by utilizing a utomated exposure control and iterative reconstruction technique. The dose-length product (DLP) was 5 43.53 mGy-cm. COMPARISON: 09/09/2022 Findings: Scans through the lung bases are unremarkable. The liver, spleen, pancreas, adrenals and kidneys are within normal limits. Cholecystectomy clips are present. No evidence of aortic aneurysm. No lymphadenopathy. No bowel obstruction or bowel wall thickening. There is sigmoid diverticulosis without definite evide nce for acute diverticulitis. Images through the pelvis were performed. Urinary bladder unremarkable. No pelvic mass seen. Impression: No definite acute abnormality. Sigmoid diverticulosis, without definite evidence for acute diverticul itis. Reviewed, dictated and finalized at [facility]. Impression: No definite acute abnormality. Sigmoid diverticulosis, without definite evidenc e for acute diverticulitis.
[2023-12-04 10:10] VITALS: BP 109/68; PULSE 60; RESP 16; TEMP 36.6; O2SAT 99
[2023-12-04 10:25] LABS: Basophils Percent Auto 0.2 % (0.2-1.2); Eosinophils Percent Auto 0.1 % (0-4.4); Hematocrit 41.7 % (37.0-47.0); Hemoglobin 13.9 g/dL (12.0-15.0); Immature Granulocyte Absolute 0.03 K/mm3 (0.00-0.031); Immature Granulocyte Percent A 0.3 % (0-0.5); Lymphocytes Absolute Auto 1.86 K/mm3 (0.9-3.2); Lymphocytes Percent Auto 16.8 % (18.3-44.2); Mean Corpuscular HGB Conc 33.3 g/dl (32-36); Mean Corpuscular Hemoglobin 30.8 pg (26-34); Mean Corpuscular Volume 92.5 fl (80-100); Mean Platelet Volume 9.8 fl (7.4-10.4); Monocytes Absolute Auto 0.8 K/mm3 (0.1-0.6); Monocytes Percent Auto 7.1 % (2.6-8.5); Neutrophils Absolute Auto 8.4 K/mm3 (1.3-6.7); Neutrophils Percent Auto 75.5 % (45.5-73.1); Platelet Count Result 178 k/mm3 (150-375); Red Blood Count 4.51 M/mm3 (4.2-5.4); Red Cell Distribution Width 13.2 % (11.5-14.5); White Blood Count 11.1 K/mm3 (4.5-10.0)
[2023-12-04 10:35] LABS: Alanine Aminotransferase 52 U/L (6-35); Albumin Level 4.3 g/dL (3.5-5.1); Alkaline Phosphatase 116 U/L (38-126); Anion Gap 8 mmol/L (4-12); Aspartate Amino Transferase 40 U/L (14-36); Bilirubin,Total 0.8 mg/dL (0.2-1.3); Blood Urea Nitrogen 14 mg/dL (7-17); Calcium 9.2 mg/dL (8.4-10.2); Carbon Dioxide 29 mmol/L (22-30); Chloride 102 mmol/L (98-107); Estimated CRCL calculation 72 ml/min; Estimated Glomerular Filt Rate > 60; Glucose 112 mg/dL (65-110); Lipase 55 U/L (23-300); Potassium 4.3 mmol/L (3.4-5.0); Sodium 139 mmol/L (137-145)
[2023-12-04 10:38] LABS: INR 0.9; Partial Thromboplastin Time 25.4 Seconds (22.3-36.8); Prothrombin Time 12.6 Seconds (11.1-14.7)
[2023-12-04 10:50] LABS: Add Urine Microscopic? NO; Appearance Urine Clear (Clear); Bilirubin Urine Negative (Negative); Blood Urine Negative (Negative); Color Urine Yellow (Yellow); Glucose Urine UA 3+ mg/dL (Negative); Ketones Urine Trace mg/dL (Negative); Leukocyte Esterase Ur Negative LEU/UL (Negative); Nitrate Urine Negative (Negative); Protein Urine Negative (Negative); Specific Grav Ur > 1.045 (1.001-1.035); Urobilinogen Urine 0.2 mg/dL (<2.0); pH Urine 6.5 (5.0-9.0)
--- NOTE | 2023-12-04 11:12 | ED.ABDPAIN ---
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 She has been having diarrhea for the past 2 weeks, ever since having Taco Castillo. She was seen 11/28 for this in the ED and received some medications. The diarrhea has persisted now with the addition of hte pain. No recent antibiotics. She noted that she had dark black stool taht was watery with black/dark brown fluffy pieces. Not on anticoagulation. Had been on prednisone for rheumatoid arthritis, prescribed as daily but takes PRN, last taken 1 week ago. No nausea or vomiting. Receives infusions for RA q8 days and also had a steroid injection in back/hip yesterday. Does not take NSAIDs. No fevers/chills. Has seen Dr Choi, gastroenterology before. Last colonoscopy approximately 1 year ago and EGD approximately 10-11 months ago. Initially denies any abdominal surgery but then states 25 years ago had gallstones and gallbladder removed. No dysuria, urgency, frequency, hematuria. Related Data Home Medications Medication Instructions Recorded Confirmed etanercept 50 mg/mL (1 mL) 50 mg subcut WEEKLY 03/31/19 12/04/23 subcutaneous syringe (Enbrel) prednisone 5 mg tablet 5 mg PO DAILY PRN RA 05/22/20 12/04/23 metformin 750 mg tablet,extended 750 mg PO AC 09/02/21 12/04/23 release 24 hr meloxicam 15 mg tablet 15 mg PO DAILY 07/03/23 12/04/23 ergocalciferol (vitamin D2) 1,250 1,250 mcg PO WEEKLY 07/09/23 12/04/23 mcg (50,000 unit) capsule empagliflozin 25 mg tablet 25 mg PO DAILY 12/04/23 12/04/23 (Jardiance) Allergies Allergy/AdvReac Type Severity Reaction Status Date / Time No Known Allergies Allergy Verified 12/04/23 10:10 [facility] Past Medical History Medical History Arthritis Diabetes Diverticulitis Epigastric pain High cholesterol Hypertension Rheumatoid arthritis Surgical History Surgical History History of cholecystectomy ~1998 History of colonoscopy ~2022 History of esophagogastroduodenoscopy (EGD) approx Jan 2023/Feb 2023 History of eye surgery Left Family History Family History Father Family history of malignant neoplasm, Onset Age: 104 Social History Social History (Updated 12/04/23 @ 22:53 by Micaela Godinez MD) Social History: Telugu speaking Smoking status: Never smoker Alcohol intake: never Substance use: never Substance use type: does not use Lack of Transportation: No Lack of Food: Never True Current Housing: I Have Housing Concerned About Future Housing: No Difficulty Paying Gas/Electric Bills: No Difficulty Paying for Meds: No Currently Unemployed: No Education: Don't Know Difficulty w/ Childcare or Family Care: No Living arrangements: with family Occupation/Education: occupation Gender identity (if verbalized by the patient): Female Spiritual care concerns: No Exam Narrative: GENERAL: Well-appearing, well-nourished, and in no acute distress. HEAD: Normocephalic, atraumatic. EYES: Non injected, non icteric ENT: Nares clear, no rhinorrhea or epistaxis. NECK: Supple. CHEST: Speaking in full sentences. No respiratory distress. HEART: Regular rate and rhythm. . Rectal/ABDOMEN: Soft, nondistended. Benign abdominal exam without TTP, rigidity/guarding. Rectal exam with no external hemorrhoids. Normal recta tone. Brown stool on gloved finger. Guiaic/FOBT negative. EXTREMITIES: Normal range of motion. No lower extremity edema. SKIN: Warm, dry, no rash. NEURO: No focal de
[2023-12-04 11:45] LABS: Magnesium 2.3 mg/dL (1.6-2.3)
[2023-12-04 11:54] LABS: CRP 1.1 mg/dL (<1.0)
[2023-12-04] MEDS: MORPHINE SULFATE (*CRX) 4 MG/ML INJ IV PUSH (12:05)
[2023-12-04 12:10] LABS: Erythrocyte Sedimentation Rate 65 mm/hr (0-20)
[2023-12-04] MEDS: DICYCLOMINE HCL 10 MG CAPSULE PO (13:30)
[2023-12-04 14:15] LABS: Toxigenic C. Diff NEGATIVE (NEGATIVE)
[2023-12-04 14:55] VITALS: BP 106/69; PULSE 63; RESP 18; TEMP 36.5; O2SAT 99
== END 2023-12-04 14:56 | disposition home or self-care (01) ==
PROVIDERS: Emergency Provider Student in an Organized Health Care Education/Training Program; PCP Physician Assistant
DX: R10.32 Left lower quadrant pain (principal); K57.30 Diverticulosis of large intestine without perforation or abscess without bleeding; K52.9 Noninfective gastroenteritis and colitis, unspecified; D72.829 Elevated white blood cell count, unspecified; R74.01 Elevation of levels of liver transaminase levels; E11.9 Type 2 diabetes mellitus without complications; I10 Essential (primary) hypertension; E78.00 Pure hypercholesterolemia, unspecified; M06.9 Rheumatoid arthritis, unspecified; Z90.49 Acquired absence of other specified parts of digestive tract; Z79.84 Long term (current) use of oral hypoglycemic drugs; Z79.620 Long term (current) use of immunosuppressive biologic; Z79.899 Other long term (current) drug therapy
CPT/HCPCS: 36415; 74177; 80053; 81003; 83690; 83735; 85025; 85610; 85652; 85730; 86140; 86850; 86900; 86901; 87493; 96374; 99284; A9270; J2270; Q9967

== ENCOUNTER 2024-07-28 13:22 | Outpatient (CLI) | payer MEDICARE, SELFPAY ==
--- NOTE | ~2024-07-28 | XR_ITS ---
Thoracic spine: Clinical Indication: Back pain AP and lateral views were performed. No fracture is seen. There is normal alignment of the vertebrae. The intervertebral disc spaces appe ar normal. Paravertebral soft tissues appear normal. Impression: No significant abnormalities noted. Reviewed, dictated and finalized at [facility]. Impression: No significant abnormalities noted.
--- NOTE | ~2024-07-28 | XR_ITS ---
Lumbosacral Spine: AP and lateral views Clinical History: Pain Findings: The normal lordotic curve is maintained. No fracture seen. There is grade 1 anterolisthesis of L4 over L5. There is moderate facet arthropathy throughout the lumbar spine, worst at L4-L5 and L 5-S1. The sacroiliac joints are normally outlined. Impression: Mild to moderate degenerative spondylosis overall, as above. Reviewed, dictated and finalized at location . Impression: Mild to moderate degenerative spondylosis overall, as above.
== END 2024-07-28 13:23 | disposition home or self-care (01) ==
PROVIDERS: PCP Physician Assistant
DX: M54.9 Dorsalgia, unspecified (principal); M43.06 Spondylolysis, lumbar region
CPT/HCPCS: 72072; 72100

== ENCOUNTER 2024-09-22 07:39 | Outpatient (CLI) | payer MEDICARE, SELFPAY ==
--- OUTSIDE RECORDS SUMMARY | 2024-09-22 07:42 | XMS_ITS | Clinical Summary ---
Author Organization [facility] Address [address] [place] [address] Phone Care Team Providers Care Feed Handler Name Role Phone Teja Weaver MD Primary Care Provider Allergies No known active allergies Medications etanercept (ENBREL) 25 mg (1 mL) Recon Soln Inject by subcutaneous injection every 7 days. 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 Gender Identity Not on file Sexual Orientation Not on file Last Filed Vital Signs Vital Sign Reading Time Taken Comments Blood Pressure 139/74 06/17/2016 8:00 AM CDT Pulse 65 06/17/2016 8:00 AM CDT Temperature 36.6 C (97.8 F) 01/27/2015 11:12 AM SERVICE DELIVERY MANAGER Respiratory Rate - - Oxygen Saturation - - Inhaled Oxygen Concentration - - Weight 79.4 kg (175 lb) 06/17/2016 8:00 AM CDT Height 157.5 cm (5' 2) 06/17/2016 8:00 AM CDT Body Mass Index 32.01 06/17/2016 8:00 AM CDT Plan of Treatment Health Maintenance Due Date Last Done Comments DTAP/TDAP/TD VACCINES (1 - Tdap) 01/07/1976 COLORECTAL SCREENING 2002 Colorectal Cancer Screening 2002 FIT-DNA Q 3 years 2002 FIT/FOBT Q 1 year 2002 Flex Sig/CT Colonography Q 5 years 2002 PNEUMOCOCCAL VACCINE 50+ YEA RS (1 of 1 - PCV) 2007 ZOSTER VACCINE (1 of 2) 2007 BREAST CANCER SCREENING 04/23/2022 04/23/2021, 11/18 OSTEOPOROSIS SCREENING 10/15/2023 10/14/2018 INFLUENZA VACCINE (#1) 2024 RSV VACCINE (60+ or ) (1 - 1-dose 75+ series) 01/07/2032 Procedures Procedure Name Priority Date/Time Associated Diagnosis Comments MAMMO 3D ANTONY SCREEN BILAT W OR WO CAD Routine 04/23/2021 5:08 PM SERVICE DELIVERY MANAGER Breast cancer screening by mammogram XR DEXA BONE DENSITY AXIAL 1 OR MORE SITES Routine 10/14/2018 9:28 AM CDT Other specified rheumatoid arthritis, left hand (CMS/HCC) from Last 3 Months or Most Recently Relevant to Health Maintenance Results * MAMMO SCRN BILAT 3D ANTONY W OR WO CAD (04/23/2021 5:08 PM SERVICE DELIVERY MANAGER) Anatomical Region Laterality Modality Breast Bilateral Mammography 04/23/2021 5:08 PM SERVICE DELIVERY MANAGER Impressions 04/24/2021 9:08 AM SERVICE DELIVERY MANAGER IMPRESSION: 1. No concerning findings. OVERALL FINAL ASSESSMENT: BI-RADS CATEGORY 1 - Negative. RECOMMENDATIONS: 1. Recommend annual mammography. Narrative 04/24/2021 9:08 AM SERVICE DELIVERY MANAGER BILATERAL SCREENING DIGITAL MAMMOGRAM WITH 3D TOMOSYNTHESIS AND CAD DATE: 04/23/2021 5:08 PM DICTATION LOCATION: [facility] HISTORY: Routine yearly screening exam. TECHNIQUE: Low-dose full-field digital breast tomosynthesis examination was performed of both breasts with 2D and 3D acquisitions. CAD was utilized. COMPARISON: 10/07/2014 and 11/18/2018. BREAST COMPOSITION: Scattered fibroglandular densities. FINDINGS: No concerning dominant masses, suspicious calcifications, parenchymal asymmetries or areas of architectural distortion are identified in either breast. Procedure Note Keagan Johnson MD - 04/24/2021 BILATERAL SCREENING DIGITAL MAMMOGRAM WITH 3D TOMOSYNTHESIS AND CAD DATE: 04/23/2021 5:08 PM DICTATION LOCATION: [facility] HISTORY: Routine yearly screening exam. TECHNIQUE: Low-dose full-field digital breast tomosynthesis examination was performed of both breasts with 2D and 3D acquisitions. CAD was utilized. COMPARISON: 10/07/2014 and 11/18/2018. BREAST COMPOSITION: Scattered fibroglandular densities. FINDINGS: No concerning dominant masses, suspicious calcifications, parenchymal asymmetries or areas of architectural distortion are identified in either breast. IMPRESSION: 1. No concerning findings. OVERALL FINAL ASSESSMENT: BI-RADS CATEGORY 1 - Negative. RECOMMENDATIONS: 1. Recommend annual mammography. us Teja Weaver MD MAMMO ORDERABLES Final Result * XR DEXA BONE DENSITY AXIAL 1 OR MORE SITES (10/14/2018 9:28 AM CDT) Anatomical Region Laterality Modality Digital Radiogra phy 10/14/2018 9:28 AM CDT Narrative 10/14/2018 9:36 AM CDT XR DEXA BONE DENSITY AXIAL 1 OR MORE SITES DATE: 10/14/2018 9:28 AM HISTORY: 63 years old Female with post menopausal symptoms. PROCEDURE: Planar images of the lumbar spine and hip(s) using a LUXA DEXA scanner for bone mineral density determination (BMD). FINDINGS: Lumbar Spine (L1-L4) 1.027 gm/cm2, T-score: -1.3 Left femoral neck 0.964 gm/cm2, T-score: -0.5 Right femoral neck 0.913 gm/cm2, T-score: -0.9 Comments: None IMPRESSION Osteopenic bone mineral density. DEFINITIONS: Normal: T-score above -1.0 Osteopenia T-score less than -1.0 and above -2.5 Osteoporosis: T-score < -2.5 FRAX FRACTURE RISK ASSESSMENT: Risk factors: Glucocorticoid's, rheumatoid arthritis 10 Year Probability Of Fracture -Major Osteoporotic: 8.1% -Hip: 0.5% -Comparison population: [place], A major osteoporotic fracture is defined as a fracture of the spine, forearm, hip or shoulder. FOLLOW-UP RECOMMENDATIONS: Patients without high risk factors for osteoporosis: T-score -1.0 to -1.5 - Consider repeat BMD in 5-10 years T-score -1.5 to -2.0 - Consider repeat BMD in 3-5 years T-score -2.0 to - 2.5 - Consider repeat BMD every 2 years Patients on treatment for osteoporosis: 1-2 years after initiation of treatment and every 2 [address] Spencer Sepulveda DO DICTATION LOCATION: Location 1 - [facility] Procedure Note Spencer Sepulveda DO - 10/14/2018 XR DEXA BONE DENSITY AXIAL 1 OR MORE SITES DATE: 10/14/2018 9:28 AM HISTORY: 63 years old Female with post menopausal symptoms. PROCEDURE: Planar images of the lumbar spine and hip(s) using a LUXA DEXA scanner for bone mineral density determination (BMD). FINDINGS: Lumbar Spine (L1-L4) 1.027 gm/cm2, T-score: -1.3 Left femoral neck 0.964 gm/cm2, T-score: -0.5 Right femoral neck 0.913 gm/cm2, T-score: -0.9 Comments: None IMPRESSION Osteopenic bone mineral density. DEFINITIONS: Normal: T-score above -1.0 Osteopenia T-score less than -1.0 and above -2.5 Osteoporosis: T-score < -2.5 FRAX FRACTURE RISK ASSESSMENT: Risk factors: Glucocorticoid's, rheumatoid arthritis 10 Year Probability Of Fracture -Major Osteoporotic: 8.1% -Hip: 0.5% -Comparison population: [place], A major osteoporotic fracture is defined as a fracture of the spine, forearm, hip or shoulder. FOLLOW-UP RECOMMENDATIONS: Patients without high risk factors for osteoporosis: T-score -1.0 to -1.5 - Consider repeat BMD in 5-10 years T-score -1.5 to -2.0 - Consider repeat BMD in 3-5 years T-score -2.0 to - 2.5 - Consider repeat BMD every 2 years Patients on treatment for osteoporosis: 1-2 years after initiation of treatment and every 2 years [address] Spencer Sepulveda DO DICTATION LOCATION: Location 1 - [facility] Angelo Mckeon MD DIAGNOSTIC IMAGING ORDERABLES Fi nal Result from Last 3 Months or Most Recently Relevant to Health Maintenance [place] [address] [place] [id number] [employer] Care Teams Feed Handler Relationship Specialty Start Date End Date Teja Weaver MD [address] [place] [phone] PCP - General Family Practice 03/26/21
--- OUTSIDE RECORDS SUMMARY | 2024-09-22 07:42 | XMS_ITS | Encounter Summary ---
Author Organization [facility] Address [address] [place] [address] Care Team Providers Care Card Grinder Helper Name Role Phone Makenzie Hernandez Primary Care Provider + Bi Hernandez MD Unavailable Jessee Quinn MD Unavailable [phone] Jayjay Forman MD Unavailable [phone] Encounter Details Date Type Department Care Team (Late st Contact Info) Description 10/08/2023 Documentation [facility] Pain Mgmt [address] [place] [address] Bi Hernandez MD [address] [place] [address] [address] Social History Tobacco Use Types Packs/Day Years Used Date Smoking Tobacco: Never Comments No Sex and Gender Information Value Date Recorded Sex Assigned at Not on file Legal Sex Female 4:41 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 Gender Identity Not on file Sexual Orientation Not on file documented as of this encounter Plan of Treatment Not on file documented as of this encounter Visit Diagnoses Not on filedocumented in this encounter Care Teams Card Grinder Helper Relationship Specialty Start Date End Date Makenzie Hernandez PA PCP - General Physician Retail Merchandising Manager 09/12/23 Bi Hernandez MD [address] [facility], [facility] [address] [place] [address] Consulting Physician Pain Management 09/23/23 Jessee Quinn MD [address] [facility] [address] [place] [address] Referring Physician Family Medicine 09/24/23 Jayjay Forman MD [address] [place] [address] Consulting Physician Neurosurgery 12/03/23 documented as of this encounter
--- OUTSIDE RECORDS SUMMARY | 2024-09-22 07:42 | XMS_ITS ---
Author Organization [facility] Address [address] [place], [place] [id number] Care Team Providers Care Medical Office Specialist Name Role Phone Makenzie Hernandez Primary Care Provider Ynes Akins Unavailable [phone] Encounters Encounter Location Date Provider [facility] [address] [place], [place] [phone] 08/05/2024 Ynes Goldman PLAN OF TREATMENT Next Appt Details Provider Name:Ynes Goldman, 11:10:00 AM, [address], [place], [place], [phone],
--- OUTSIDE RECORDS SUMMARY | 2024-09-22 07:43 | XMS_ITS ---
Author Organization [facility] Address [address] [place], [place] [id number] Care Team Providers Care Supervisor Stage Carpentry Name Role Phone Makenzie Hernandez Primary Care Provider Ynes Akins Unavailable [phone] MEDICATIONS Medication SIG (Take, Route, Frequency, Duration) [...] [address] [facility] [address] [place], [place] [phone] 07/27/2024 Ynes Goldman PLAN OF TREATMENT Medication Medication Name Sig Start Date Stop Date Notes Cyclobenzaprine Hydrochloride 5 mg 1 - 2 tabs orally at bed time for 30 days 07/27/2024 Next Appt Details Provider Name:Ynes Goldman, 11:10:00 AM, [address], [address], [place], [place], [phone],
--- OUTSIDE RECORDS SUMMARY | 2024-09-22 07:43 | XMS_ITS | Clinical Summary ---
Author Organization [employer] Address [address] [id number] Phone Care Team Providers Care Configuration Specialist Name Role Phone Unavailable Primary Care Provider Unavailabl e Allergies No known active allergies Medications Enbrel 50 MG/ML injection 2 Active metFORMIN XR (Glucophage-XR) 750 MG 24 hr tablet Take 750 mg by mouth in the morning and at bedtime. 2 Active predniSONE (Deltasone) 5 MG tablet Take 5 mg by mouth 1 (one) time each day. 2 Active predniSONE (Deltasone) 10 MG tablet Take 10 mg by mouth in the morning. 2 Active Acetaminophen (TYLENOL ARTHRITIS PAIN PO) Active Diclofenac Sodium (Voltaren) 1 % gel every 6 (six) hours. Active atorvastatin (Lipitor) 20 MG tabletIndications:M ixed hyperlipidemia Take 1 tablet (20 mg) by mouth at bedtime. 30 tablet 2 2 Active Active Problems Problem Noted Date Diagnosed Date Primary osteoarthritis of right hip 09/01/2023 Diverticulosis 09/01/2023 Chest tightness 12/27/2021 Dyspnea 12/27/2021 Injection site reaction 12/27/2021 nursing home (current) use of n on-steroidal anti-inflammatories (nsaid) 12/27/2021 nursing home current use of systemic steroids 12/27 Low back pain 12/27/2021 Myalgia 12/27/2021 Non-smoker 12/27/2021 Right hip pain 12/27/2021 Type 2 diabetes mellitus wit hout complication (HCC ([facility]) 03/28/2021 Overview (12/27/2021): Note: Foot exam 12/2020 normal. Eye exam 03/2021 normal in [place]. Latent tuberculosis 10/07/2018 Overview (12/27/2021): Note: + PPD Completed INH prior to biologic DMARD Systemic lupus erythematosus ([facility] 03/2014 Overview (12/27/2021): Note: Unchanged Rheumatoid arthritis ([facility]) 06/01/2013 Adverse effect of antiprotozoal drug 04/20/2013 Chronic pain syndrome 01/19/2013 Increased immunoglobulin 07/03/2012 Arthralgia of multiple joints 07/03/2012 Immunizations Immunization Administration Dates Next Due Influenza, intradermal, quad rivalent, preservative free, injectable 12/09/2016,10/31/2015 Influenza, recombinant, quad rivalent, injectable, preservative free 12/21/2020,10/19/2019,12/22/2018,2014 Influenza, split virus, triv alent, injectable, contains preservative 12/13/2021 Moderna SARS-CoV-2 Vaccination 04/19/2020 Pneumococcal Conjugate PCV 13 10/07/2018 Tdap 10/07/2018 Zoster, Recombinant 09/06/2018 Social History Tobacco Use Types Packs/Day Years Used Date Smoking Tobacco: Never Passive Smoke Exposure: Never Smokeless Tobacco: Never Tobacco Cessation:Counseling Given: No Alcohol Use Standard Drinks/Week Comments Not Currently 0 (1 standard drink = 0.6 oz pur e alcohol) Intimate Partner Violence Answer Date R ecorded Feels physically and emotionally safe Not on broderick e 11/18/2021 Fear of partner Not on file 11/18/2021 Housing Stability Answer Date Recorded Housing situation Not on file 11/18/2021 Worried about losing housing Not on file 03/2021 Comments Unknown Sex and Gender Information Value Date Recorded Sex Assigned at Not on file Legal Sex Female 3:34 PM EDT Gender Identity Female 11/18/2021 3:34 PM EDT Sexual Orientation Not on file Last Filed Vital Signs Vital Sign Reading Time Taken Comments Blood Pressure 110/70 02/13/2022 10:01 AM CATALOGUE AND SPECIAL PRODUCTS MANAGER Pulse 68 02/13/2022 10:01 AM CATALOGUE AND SPECIAL PRODUCTS MANAGER Temperature 36.2 C (97.2 F) 02/13/2022 10:01 AM CATALOGUE AND SPECIAL PRODUCTS MANAGER Respiratory Rate 20 01/21/2018 9:14 AM CATALOGUE AND SPECIAL PRODUCTS MANAGER Oxygen Saturation 99% 01/21/2018 9:14 AM CATALOGUE AND SPECIAL PRODUCTS MANAGER Inhaled Oxygen Concentration - - Weight 75.8 kg (167 lb) 02/13/2022 10:01 AM CATALOGUE AND SPECIAL PRODUCTS MANAGER Height 157.5 cm (5' 2) 02/13/2022 10:01 AM CATALOGUE AND SPECIAL PRODUCTS MANAGER Body Mass Index 30.54 02/13/2022 10:01 AM CATALOGUE AND SPECIAL PRODUCTS MANAGER Plan of Treatment Health Maintenance Due Date Last Done Comments CT Colonography 1957 Colonoscopy 1957 Colorectal Cancer Screening 1957 FIT-DNA 1957 FIT 1957 FOBT 1957 Sigmoidoscopy 1957 Diabetes: Dental Exam 1967 Diabetes: Foot Exam 1967 Diabetes: Retinopathy Screening 1967 Well Adult Exam (Age 18+ Annual Physical) 1975 Zoster Vaccines (2 of 2) 11/01/2018 09/06/2018 DTaP/Tdap/Td Vaccines (2 - Td or Tdap) 11/04/2018 10/07/2018 Pneumococcal Vaccine: 50+ Years (2 of 2 - PPSV23, PCV20, or PCV21) 12/02/2018 10/07/2018 Diabetes: Urine Protein Screening 01/08/2022 01/08/2021 Diabetes: Hemoglobin A1C 06/26/2022 022, 06/19/2021, 03/26/2021, Additional history exists Mammogram 04/24/2023 04/23/2021, 03/0 08/2021, 04/22/2021, Additional history exists COVID-19 Vaccine ( season) 2023 01/17/2021, 05/19/2020, 04/19/2020 Influenza Vaccine (#1) 2024 , 12/21/2020, 10/19/2019, Additional history exists RSV Vaccines or Age 60+ (1 - 1-dose 75+ series) 01/07/2032 Bone Density Scan Completed 10/14/2018, 10/14/2018 Cervical Cancer Screening Discontinued HPV/Cotest Discontinued 02/20/2021 Hepatitis B Screening Completed 12/27/2021 Hepatitis C Screening Completed 12/27/2021 HIB Vaccines Aged Out No longer eligi ble based on patient's age to complete this topic HPV Vaccines (No Doses Required) Completed Hepatitis A Vaccines Aged Out No long er eligible based on patient's age to complete this topic Hepatitis B Vaccines Aged Out No long er eligible based on patient's age to complete this topic IPV Vaccines Aged Out No longer eligi ble based on patient's age to complete this topic Meningococcal B Vaccine Aged Out No l onger eligible based on patient's age to complete this topic Meningococcal Vaccine Aged Out No brianna lashay eligible based on patient's age to complete this topic Pap Smear Discontinued Rotavirus Vaccines Aged Out No longer eligible based on patient's age to complete this topic Procedures Procedure Name Priority Date/Time Associated Diagnosis Comments HEPATITIS PANEL, GENERAL Routine 12/27/2021 9:48 AM CATALOGUE AND SPECIAL PRODUCTS MANAGER POCT HEMOGLOBIN A1C Routine 12/27/2021 9 :19 AM CATALOGUE AND SPECIAL PRODUCTS MANAGER Type 2 diabetes mellitus without complication, without long-term current use of insulin HM MAMMOGRAPHY Routine 04/22/2021 11:00 PM CATALOGUE AND SPECIAL PRODUCTS MANAGER THINPREP TIS AND HPV MRNA E6/E7 Routine 02/20/2021 2:46 PM CATALOGUE AND SPECIAL PRODUCTS MANAGER MICROALBUMIN, RANDOM URINE (W/CREATININE) Routine 01/08/2021 12:04 PM CATALOGUE AND SPECIAL PRODUCTS MANAGER from Last 3 Months or Most Recently Relevant to Health Maintenance Results * (ABNORMAL) HEPATITIS PANEL, GENERAL (12/27/2021 9:48 AM CATALOGUE AND SPECIAL PRODUCTS MANAGER) HEPATITIS A AB REACTIVE( A) NON-REACT [facility] Comment: For additional information, please refer to http://education.[employer]/faq/LDN095 (This link is being provided for informational/ educational purposes only.) HEPATITIS B SURF AB NON-REACT LUIS NON-REACT LUIS [facility] HEPATITIS B SURFACE AG NON-REACT LUIS NON-REACT LUIS [facility] HEPATITIS B CORE AB NON-REACT LUIS NON-REACT [facility]IS [facility] HEPATITIS C AB NON-REACT LUIS NON-REACT LUIS [facility] SIGNAL TO CUT-OFF 0.04 <1.00 [facility] Comment: HCV antibody was non-reactive. There is no laboratory evidence of HCV infection. In most cases, no further action is required. However, if recent HCV exposure is suspected, a test for HCV RNA (test code 82197) is suggested. For additional information please refer to http://education.[employer]/faq/LWR65r0 (This link is being provided for informational/ educational purposes only.) 12/27/2021 9:48 AM CATALOGUE AND SPECIAL PRODUCTS MANAGER 12/27/2021 7:49 PM CATALOGUE AND SPECIAL PRODUCTS MANAGER us Yadi Bauman MD LAB BLOOD ORDERABLES Final Resu lt [employer] [facility] [address] [place], [place] [id number] [place] [address] * POCT HEMOGLOBIN A1C Manually Resulted (12/27/2021 9:19 AM CATALOGUE AND SPECIAL PRODUCTS MANAGER) HEMOGLOBIN A1C 6.5 abnormal Blood Venous blood specimen / Unknown 12/27/2021 9:19 AM CATALOGUE AND SPECIAL PRODUCTS MANAGER us Yadi Bauman MD POINT OF CARE TEST ENTER/EDIT O RDERABLES Final Result * Hm Mammography (04/22/2021 11:00 PM CATALOGUE AND SPECIAL PRODUCTS MANAGER) Anatomical Region Laterality Modality Other 04/22/2021 11:0 0 PM CATALOGUE AND SPECIAL PRODUCTS MANAGER 04/22/2021 11:00 PM CATALOGUE AND SPECIAL PRODUCTS MANAGER Narrative 04/22/2021 11:00 PM CATALOGUE AND SPECIAL PRODUCTS MANAGER Access [employer] Patient Window in the Media Tab above to review report after 02/17/2018. For reports prior to 02/17/2018, reference [facility] Procedure Note Provider, [facility] Conversion - 02/26/2022 Access [employer] Patient Window in the Media Tab above to review report after02/17/2018. For reports prior to 02/17/2018, reference [facility]chc[facility] Conversion Provider HEALTH MAINTENANCE F inal Result * THINPREP TIS AND HPV MRNA E6/E7 (02/20/2021 2:46 PM CATALOGUE AND SPECIAL PRODUCTS MANAGER) CLINICAL INFORMATION None given [facility] PREV. BX NONE GIVEN [facility] PAP SMEAR [facility] Comment:Negative for intraep ithelial lesion or malignancy. Atrophic pattern; predominantly parabasal cells LMP NONE GIVEN [facility] SOURCE Vagina, Cervix, Endocervix [facility] COMMENT This Pap test has been evaluated with computer assisted technology. [facility] HPV RNA, HR E6/E7, TMA Not Detected Not Detected [facility] Comment:Methodology: Transcr iption-Mediated Amplification This assay detects E6/E7 viral messenger RNA (mRNA) from 14 high-risk HPV types (16,18,31,33,35,39,45,51,52,56,58,59,66,68). The analytical performance characteristics of this assay have been determined by [employer]. The modifications have not been cleared or approved by the FDA. This assay has been validated pursuant to the CLIA regulations and is used for clinical purposes. For additional information, please refer to http://education.[employer]/faq/XAV783c6 (This link if provided for information/ educational purposes only.) PREV. PAP NONE GIVEN [facility] STATEMENT OF ADEQUACY SATISFACTORY FOR EVALUATION [facility]ILDC[facility] DIRECTOR [facility] Comment:ABC, CT(ASCP) CT scr eening location: [address] [place] [place] [address] COMMENT [facility] Comment:EXPLANATORY NOTE: Th e Pap is a screening test for cervical cancer. It is not a diagnostic test and is subject to false negative and false positive results. It is most reliable when a satisfactory sample, regularly obtained, is submitted with relevant clinical findings and history, and when the Pap result is evaluated along with historic and current clinical information. 02/20/2021 2:46 PM CATALOGUE AND SPECIAL PRODUCTS MANAGER 02/20/2021 2:46 PM CATALOGUE AND SPECIAL PRODUCTS MANAGER Den Amaro MD LAB MICROBIOLOGY - GENERAL ORDERABLES Final Result [facility] * MICROALBUMIN, RANDOM URINE (W/CREATININE) (01/08/2021 12:04 PM CATALOGUE AND SPECIAL PRODUCTS MANAGER) MICROALBUMIN/CREAT ININE RATIO, RANDOM URINE 6 <30 mcg/mg creat [facility] Comment:The ADA defines abno rmalities in albumin excretion as follows: Albuminuria Category Result (mcg/mg creatinine) Normal to Mildly increased <30 Moderately increased 30-299 Severely increased > OR = 300 The ADA recommends that at least two of three specimens collected within a 3-6 month period be abnormal before considering a patient to be within a diagnostic category. MICROALBUMIN UR 0.5 See Note: mg/dL [facility] Comment:Reference Range: Ref erence Range Not established CREATININE UR 77 20 - 275 mg/dL [facility] 01/08/2021 12:0 4 PM CATALOGUE AND SPECIAL PRODUCTS MANAGER 01/08/2021 12:04 PM CATALOGUE AND SPECIAL PRODUCTS MANAGER us Den Amaro MD LAB URINE ORDERABLES Final Result [facility] from Last 3 Months or Most Recently Relevant to Health Maintenance Insurance [facility]
--- OUTSIDE RECORDS SUMMARY | 2024-09-22 07:43 | XMS_ITS | Encounter Summary ---
Author Organization [facility] Address [address] [place] [address] Care Team Providers Care Supervisor Garage Name Role Phone Teja Weaver MD Primary Care Provider [phone] Encounter Details Date Type Department Care Team (Late st Contact Info) Description 03/29/2003 Emergency [facility] [place] [address] [address] Er, Authorized P NO ADDRESS ON FILE OTITIS MEDIA NOS (Primary Dx) Social History Tobacco Use Types Packs/Day Years Used Date Smoking Tobacco: Never Assessed Comments Unknown Sex and Gender Information Value Date Recorded Sex Assigned at Not on file Legal Sex Female 4:12 AM HIDES AND SKINS COLORER Gender Identity Not on file Sexual Orientation Not on file documented as of this encounter Plan of Treatment Not on file documented as of this encounter Visit Diagnoses Diagnosis Unspecified otitis media- Primary documented in this encounter Care Teams Supervisor Garage Relationship Specialty Start Date End Date Teja Weaver MD [address] [place] [id number] PCP - General Family Practice 03/26/21 documented as of this encounter
--- OUTSIDE RECORDS SUMMARY | 2024-09-22 07:43 | XMS_ITS | Clinical Summary ---
Author Organization [facility] Address [address] [place] [address] Care Team Providers Care Pipe Cleaner Name Role Phone Angelo Mckeon MD Primary Care Provider [phone] Source Comments [facility],non-owned Affiliates and Associated Physician Practices is amultiple site organization consisting of ambulatory clinics and hospital sitesin [place], [place], [place] and [place]. This disclosure is being madepursuant to the Care Everywhere program and may not contain all information available regarding this patient. Last updated 17.[facility] [employer] Social History Tobacco Use Types Packs/Day Years Used Date Smoking Tobacco: Never Assessed Comments No Sex and Gender Information Value Date Recorded Sex Assigned at Not on file Legal Sex Female 5:10 AM COSMETICS DEMONSTRATOR Gender Identity Not on file Sexual Orientation Not on file Plan of Treatment Health Maintenance Due Date Last Done Comments BONE DENSITY TESTING 1955 COLOGUARD (AGES 45-75) - COL ON CA SCREENING 1957 COLON MONITORING 1957 COLONOSCOPY - COLON CA SCREENING 1957 CT COLONOGRAPHY - COLON CA SCREENING 1957 Colorectal Cancer Screening 1957 FIT - COLON CA SCREENING 1957 FLEX SIG - COLON CA SCREENING 1957 LIPID TESTING 1957 HEPATITIS C SCREENING 01/02/1975 DTAP/TDAP/TD VACCINES (1 - Tdap) 01/07/1976 PNEUMOCOCCAL VACCINE 50+ (1 of 1 - PCV) 2007 ZOSTER VACCINE (1 of 2) 2007 MAMMOGRAM 10/07/2016 10/07/2014 COVID-19 VACCINE (2023-2 5 season) 2023 DEPRESSION SCREENING 02/18/2024 MEDICARE AWV CALENDAR YEAR 2024 INFLUENZA VACCINE (#1) 2024 Respiratory Syncytial Virus (RSV) Vaccine Pt: or over 60 yrs (1 - 1-dose 75+ series) 01/07/2032 HEPATITIS B VACCINE Aged Out No longe r eligible based on patient's age to complete this topic HIB VACCINE Aged Out No longer eligi ble based on patient's age to complete this topic HPV VACCINE Aged Out No longer eligi ble based on patient's age to complete this topic MENINGOCOCCAL (Group B) VACC INE SHARED DECISION-MAKING Aged Out No longer eligibl e based on patient's age to complete this topic MENINGOCOCCAL GROUPS A/C/Y/W VACCINE Aged Out No longer eligible b ased on patient's age to complete this topic Procedures Procedure Name Priority Date/Time Associated Diagnosis Comments MAMMO BILAT SCREENING Routine 10/07/2014 2:19 PM CDT Other screening mammogram from Last 3 Months or Most Recently Relevant to Health Maintenance Results * THAD SCREENING DIGITAL IMAGE BILATERAL G0202 (10/07/2014 2:19 PM CDT) Anatomical Region Laterality Modality Breast Bilateral Mammography 10/10/2014 9:18 AM CDT Narrative 10/10/2014 9:32 AM CDT EXAMINATION: Digital screening mammogram with 2D and tomosynthesis images on 10/07/2014. PRIOR: None available FINDINGS: Computer assisted detection was utilized. Low-dose 2D and tomosynthesis images were obtained. The tissue density pattern is scattered fibroglandular densities. There is an area of possible architectural distortion seen centrally in the right breast. Additional evaluation of this is indicated. No other findings are seen. ASSESSMENT: BIRADS Category 0: Incomplete - Needs additional imaging evaluation. RECOMMENDATION: Additional views and possible ultrasound of the right breast. Thank you for allowing us to participate in the care of your patient. [facility] utilizes [employer] as a reminder system to notify patients of their next recommended mammogram. us Angelo Mckeon MD MAMMO ORDERABLES Final Result from Last 3 Months or Most Recently Relevant to Health Maintenance Insurance * Guarantor: SALVADORZARI Baptiste Account Type Relation to Patient Date of Phone Billing Address Personal/Family [address] [place] [address] SELF PAY NO INSURANCE Member Subscriber Plan / Payer (Ef fective for All Dates) Name:Zari Salvador Member ID:Not on file Relation to Subscriber:Not on file Name:ZARI SALVADOR Subscriber ID:Not on file Address: [address] [place] [address] Payer ID:Not on file Group ID:Not on file Type:Self Pay Address: [facility] MANAGED MEDICARE ADV * Guarantor: SALVADORZARI Baptiste Account Type Relation to Patient Date of Phone Billing Address Personal/Family [address] [place] [address] SELF PAY NO INSURANCE Member Subscriber Plan / Payer (Ef fective for All Dates) Name:Zari Salvador Member ID:Not on file Relation to Subscriber:Not on file Name:ZARI SALVADOR Subscriber ID:Not on file Address: [address] [place], [place] [id number] Payer ID:Not on file Group ID:Not on file Type:Self Pay Address: [facility] MANAGED MEDICARE ADV * Guarantor: MADELEINEZARI Account Type Relation to Patient Date of Phone Billing Address Personal/Family [address] [place] [address] SELF PAY NO INSURANCE Member Subscriber Plan / Payer (Ef fective for All Dates) Name:Zari Salvador Member ID:Not on file Relation to Subscriber:Not on file Name:ZARI SALVADOR Subscriber ID:Not on file Address: [address] [place] [phone] Payer ID:Not on file Group ID:Not on file Type:Self Pay Address: [facility] MANAGED MEDICARE ADV Care Teams Pipe Cleaner Relationship Specialty Start Date End Date Angelo Mckeon MD PCP - General Family Medicine 10/05/14
--- OUTSIDE RECORDS SUMMARY | 2024-09-22 07:43 | XMS_ITS | Referral Summary ---
Author Organization [facility] Address [address] [place] [address] Care Team Providers Care Pulp Bleacher Name Role Phone DavidMakenzie kevin Moises BENZ Primary Care Provider + Bi Hernandez MD Unavailable Jessee Quinn MD Unavailable [phone] Jayjay Forman MD Unavailable [phone] Encounters Date Type Department Care Team Description 08/30/2024 8:39 AM CDT - 08/30/2024 11:59 PM CDT Hospital Encounter [facility] [address] [address] Bi Hernandez MD Bulge of lumbar disc without myelopathy; Neural foraminal stenosis of lumbar spine; Radiculopathy, lumbar region Discharge Disposition: Discharge to home or self care 08/16/2024 12:19 PM CDT - 08/16/2024 11:59 PM CDT Hospital Encounter [facility] [address] [address] Bi Hernandez MD Bulge of lumbar disc without myelopathy; Neural foraminal stenosis of lumbar spine; Radiculopathy, lumbar region Discharge Disposition: Discharge to home or self care 08/10/2024 9:12 AM CDT - 08/10/2024 11:59 PM CDT Hospital Encounter [facility] [address] [place] [address] Bi Hernandez MD 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); Neural foraminal stenosis of lumbar spine; Radiculopathy, lumbar region Discharge Disposition: Discharge to home or self care from Last 3 Months Allergies No known active allergies Medications etanercept (ENBREL) 50 mg/mL (1 mL) pen injector Inject 1 mL (50 mg total) under the skin once a week Active predniSONE (DELTASONE) 5 mg tablet Take 1 tablet (5 mg) by mouth daily as needed Active metFORMIN (GLUCOPHAGE) 500 mg tablet Take 1.5 tablets (750 mg total) by mouth 2 (two) times a day with meals Active celecoxib (CeleBREX) 200 mg capsule Take 1 capsule (200 mg total) by mouth daily 30 capsule 11/07/2023 Active loperamide (IMODIUM A-D) 2 mg tablet Take 1 tablet (2 mg total) by mouth 4 (four) times a day as needed for diarrhea Active tiZANidine (ZANAFLEX) 2 mg tablet Take 1 tablet (2 mg total) by mouth every 8 (eight) hours as needed for muscle spasms 90 tablet 01/01/2024 Active gabapentin (NEURONTIN) 100 mg capsule Take 2 capsules (200 mg total) by mouth 3 (three) times a day 90 capsule 08/10/2024 08/11/19 26 Active Active Problems Problem Noted Date Diagnosed Date Rheumatoid arthritis 06/01/2013 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 Never 01/05/2024 Q2: How many drinks containi ng alcohol do you have on a typical day when you are drinking? Patient does not drink Q3: How often do you have si x or more drinks on one occasion? 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 Gender Identity Not on file Sexual Orientation Not on file Last Filed Vital Signs Vital Sign Reading Time Taken Comments Blood Pressure 141/85 08/30/2024 10:01 AM CDT Pulse 62 08/30/2024 10:01 AM CDT Temperature 36.1 C (97 F) 08/10/2024 10:01 AM CDT Respiratory Rate 16 08/16/2024 12:42 PM CDT Oxygen Saturation 98% 08/30/2024 10:01 AM CDT Inhaled Oxygen Concentration - - Weight 75.3 kg (166 lb 1.6 oz) 08/10/2024 10:01 AM CDT Height 157.5 cm (5' 2) 08/10/2024 10:01 AM CDT Body Mass Index 30.38 08/10/2024 10:01 AM CDT Plan of Treatment Not on file Procedures Procedure Name Priority Date/Time Associated Diagnosis Comments PAIN MGMT IMAGING LUMBAR/SACRAL SELECTIVE NERVE ROOT INJ (TFE) BILATERAL Schedule Routine, Read Routine (OP Routine) 08/30/2024 10:01 AM CDT 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 Radiculopathy, lumbar region POCT GLUCOSE DEVICE Routine 08/30/2024 9:29 AM CDT PAIN MGMT IMAGING LUMBAR/SACRAL SELECTIVE NERVE ROOT INJ (TFE) BILATERAL Schedule Routine, Read Routine (OP Routine) 08/16/2024 1:54 PM CDT 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 Please refer to the physician's procedure / OR operative note. Bi Hernandez MD [facility] [place] [facility] [place]EDURES Final R esult Performing Organization Address [facility] Co de Phone Number [email or web address] * (ABNORMAL) POCT glucose (08/30/2024 9:29 AM CDT) Glucose, POC 212(H) 70 - 199 mg/dL Blood 08/30/2024 9:29 AM CDT 08/30/2024 9:29 AM CDT Bi Hernandez MD LAB POCT ORDERABLES - DEVICE Fin al Result Performing Organization Address [facility] Phone Number MARIANNE [address] [facility] Department [place] [address] * Imaging Lumbar/Sacral Selective Nerve Root INJ (TFE) Bilateral ([id number]) (08/16/2024 1:54 PM CDT) Narrative MARCOS_OGLA_DARRYLE - 08/16/2024 1:55 PM CDT The images from this study are not interpreted by Radiology. Please refer to the physician's procedure / OR operative note. Bi Hernandez MD [facility] [place] [facility] [place]EDURES Final R esult Performing Organization Address [facility] Co de Phone Number [email or web address] * POCT glucose (08/16/2024 12:39 PM CDT) Glucose, POC 152 70 - 199 mg/dL Blood 08/16/2024 12:3 9 PM CDT 08/16/2024 12:39 PM CDT Result [facility] Bi Hernandez MD LAB POCT ORDERABLES - DEVICE Fin al Result MARIANNE [address] [facility] Department [place] [address] * Serum Hepatitis panel (01/26/2013 1:17 PM DRUG ABUSE RESISTANCE EDUCATION OFFICER) HBV surface ag Negative NEG HISTO RICAL RESULTS HCV ab Negative NEG HISTORICAL RESULTS Comment: Interpretive Data If confirmation is required, call Laboratory Customer Service to request sample to be sent to [facility] for Hepatitis C Virus (HCV) RNA Detection and Quantitation by Real-Time Reverse Insulation Hoseman-PCR (RT-PCR). Current interpretive data was last revised on 2011 HBV core ab, IgM Negative NEG HIS TORICAL RESULTS Comment: Interpretive Data If test is reported as Equivocal, new sample should be drawn for testing. Current interpretive data was last revised on 2007. HAV ab, IgM Negative NEG HISTORIC AL RESULTS Comment: Interpretive Data If test is reported as Equivocal, new sample should be drawn in two weeks for testing. Current interpretive data was last revised on 2007. Serum 01/26/2013 1:17 PM DRUG ABUSE RESISTANCE EDUCATION OFFICER us Edward Samson MD LAB BLOOD ORDERABLES Fi nal Result Performing Organization Address [facility] Co de Phone Number HISTORICAL RESULTS from Last 3 Months or Most Recently Relevant to Health Maintenance Insurance [employer] MEDICARE GOLD Care Teams Pulp Bleacher Relationship Specialty Start Date End Date Makenzie Hernandez PA PCP - General Physician Salesperson Recreational Vehicles 09/12/23 Bi Hernandez MD [address] [facility], [address] [address] Consulting Physician Pain Management 09/23/23 Jessee Quinn MD [address] [address] Referring Physician Family Medicine 09/24/23 Jayjay Forman MD [address] [place] [address] Consulting Physician Neurosurgery 12/03/23
--- OUTSIDE RECORDS SUMMARY | 2024-09-22 07:43 | XMS_ITS | Clinical Summary ---
Author Organization [facility] Address [address] [place] [address] Care Team Providers Care Delphi Developer Name Role Phone Makenzie Hernandez Primary Care Provider + Bi Hernandez MD Unavailable Jessee Quinn MD Unavailable [phone] Jayjay Forman MD Unavailable [phone] Allergies No known active allergies Medications etanercept [...] immunoglobulin 07/03/2012 Arthralgia of multiple joints 07/03/2012 Encounters Date Type Department Care Team Description 08/30/2024 8:39 AM CDT - 08/30/2024 11:59 PM CDT Hospital Encounter [facility] [address] [address] Bi Hernandez MD Bulge of lumbar disc without myelopathy; Neural foraminal stenosis of lumbar spine; Radiculopathy, lumbar region Discharge Disposition: Discharge to home or self care 08/16/2024 12:19 PM CDT - 08/16/2024 11:59 PM CDT Hospital Encounter [facility] [address] [address] Bi Hernandez MD Bulge of lumbar disc without myelopathy; Neural foraminal stenosis of lumbar spine; Radiculopathy, lumbar region Discharge Disposition: Discharge to home or self care 08/10/2024 9:12 AM CDT - 08/10/2024 11:59 PM CDT Hospital Encounter [facility] [address] [address] Bi Hernandez MD 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); Neural foraminal stenosis of lumbar spine; Radiculopathy, lumbar region Discharge Disposition: Discharge to home or self care from Last 3 Months Surgical History Surgery Date Site/Laterality Comments KIDNEY STONE SURGERY Medical History Medical History Date Comments Diabetes (HCC) Kidney stones Family History Medical History Relation Name Comments Rheum arthritis Mother Family histo ry of rheumatoid arthritis - (Added by TW Conv) Relation Name Status Comments Mother Social History Tobacco Use Types Packs/Day Years [...] on file Legal Sex Female 4:41 AM OR NURSE MANAGER Gender Identity Not on file Sexual Orientation Not on file Obstetrics History Last Filed Vital Signs Vital Sign Reading [...] 08/10/2024 10:01 AM CDT Plan of Treatment Health Maintenance Due Date Last Done Comments Colon Cancer Screening-Colonoscopy 1955 Depression Screening 1957 Fall Risk Assessment 1955 Osteoporosis Screening-Bone Density Scan 1955 Hepatitis B Screening 1975 Zoster Vaccine (2 of 2) 11/01/2018 09/06/2018 Pneumococcal vaccine 65+ (2 of 2 - PPSV23) 10/08/2019 10/07/2018 Well Visit 65+ 2022 Breast Cancer Screening-Mammogram 04/22/2022 022, 11/17/2018 Covid-19 Vaccine (3 - 2023-2 5 season) 2023 05/19/2020, 04/19/2020 Influenza Vaccine (#1) 2024 2, 12/21/2020, 10/19/2019, Additional history exists DTaP/Tdap/Td Vaccine (2 - Td or Tdap) 10/07/2028 10/07/2018 Hepatitis C Screening Completed 01/26/2013, 013 Procedures Procedure Name Priority Date/Time Associated Diagnosis [...] SERUM HEPATITIS PANEL Routine 01/26/2013 1:17 PM OR NURSE MANAGER from Last 3 Months or Most Recently Relevant to Health Maintenance Results * Imaging Lumbar/Sacral Selective Nerve Root INJ (TFE) Bilateral ([id number]) (08/30/2024 10:01 AM CDT) Narrative BASIL_JENNI_OLGA_MHE - 08/30/2024 10:12 AM CDT The images from this study are not interpreted by Radiology. Please refer to the physician's procedure / OR operative note. Bi Hernandez MD IMG PAIN MGMT PROCEDURES Final R esult RAD_CLARIO_MHB_MHE * (ABNORMAL) POCT glucose (08/30/2024 9:29 AM CDT) Glucose, POC 212(H) 70 - 199 mg/dL Blood 08/30/2024 9:29 AM CDT 08/30/2024 9:29 AM CDT Bi Hernandez MD LAB POCT ORDERABLES - DEVICE Fin al Result Performing Organization Address [facility] de Phone Number MARIANNE [address] [facility] [place] [address] * Imaging Lumbar/Sacral Selective Nerve Root INJ (TFE) Bilateral ([id number]) (08/16/2024 1:54 PM CDT) Narrative MARCOS_OLGA_MHE - 08/16/2024 1:55 PM CDT The images from this study are not interpreted by Radiology. Please refer to the physician's procedure / OR operative note. Bi Hernandez MD IMG PAIN MGMT PROCEDURES Final R esult Performing Organization Address [facility] de Phone Number [email or web address] * POCT glucose (08/16/2024 12:39 PM CDT) Glucose, POC 152 70 - 199 mg/dL Blood 08/16/2024 12:3 9 PM CDT 08/16/2024 12:39 PM CDT Bi Hernandez MD LAB POCT ORDERABLES - DEVICE Fin al Result Performing Organization Address [facility] de Phone Number MARIANNE [facility] [place] [address] * Serum Hepatitis panel (01/26/2013 1:17 PM OR NURSE MANAGER) HBV surface ag Negative NEG HISTO RICAL RESULTS HCV ab Negative NEG HISTORICAL RESULTS Comment: Interpretive Data If confirmation is required, call Laboratory Customer Service to request sample to be sent to [facility] for Hepatitis C Virus (HCV) RNA Detection and Quantitation by Real-Time Reverse Schedule Planning Manager-PCR (RT-PCR). Current interpretive data was last revised [...] revised on 2007. Serum 01/26/2013 1:17 PM OR NURSE MANAGER us Edward Samson MD LAB BLOOD ORDERABLES Fi nal Result HISTORICAL RESULTS from Last 3 Months or Most Recently Relevant to Health Maintenance Insurance [employer] MEDICARE GOLD Care Teams Delphi Developer Relationship Specialty Start Date End Date Makenzie Hernandez PA PCP - General Physician Net Software Architect 09/12/23 Bi Hernandez MD [address] [facility], [address] [address] Consulting Physician Pain Management 09/23/23 Jessee Quinn MD [address] [phone] Referring Physician Family Medicine 09/24/23 Jayjay Forman MD [address] [place] [address] Consulting Physician Neurosurgery 12/03/23
--- OUTSIDE RECORDS SUMMARY | 2024-09-22 07:43 | XMS_ITS ---
Author Organization [facility] Address [address] [facility] [address] [place], [place] [address] Care Team Providers Care Welder Apprentice Gas Name Role Phone David, Makenzie Primary Care Provider Unavailjosé miguel Ynes Lua Unavailable [phone] ScheShante segura Unavailable [phone] ALLERGIES No Known Allergies RESULTS Component Value Reference Range Notes AST (SGOT) Reviewed date:07/29/2024 10:12:52 AM Interpretation: Performing Lab:[facility], [facility], Phone - [phone], Director - Fariba Notes/Report: AST (SGOT) 37 0-40 IU/L Creatinine, Serum Reviewed date:07/29/2024 10:12:52 AM Interpretation: Performing Lab:[facility], [facility] [address] [facility], Phone - [phone], Director - Fariba Notes/Report: Creatinine 0.52 0.57-1.00 mg/dL eGFR 102 >59 mL/min/1.73 ALT (SGPT) Reviewed date:07/29/2024 10:12:52 AM Interpretation: Performing Lab[facility], [facility], Phone - [phone], Director - Fariba Notes/Report: ALT (SGPT) 33 0-32 IU/L CBC With Differential/Platel et Reviewed date:07/29/2024 10:12:52 AM Interpretation: Performing Lab[facility], [facility], Phone - [phone], Director - [facility] Notes/Report: WBC 7.1 3.4-10.8 x10E3/uL RBC [...] Westergren Reviewed date:07/29/2024 10:12:52 AM Interpretation: Performing Lab:[facility] [place], [address] [place] [address], Phone - [phone], [facility] Notes/Report: Sedimentation Rate-Zacheryergren 7 0-40 mm/hr C-Reactive Protein, Quant Reviewed date:07/29/2024 10:12:52 AM Interpretation: Performing Lab:[facility] [place], [address] [facility], Phone - [phone], Director - [facility] Notes/Report: C-Reactive Protein, Quant 1 0-10 [...] Code Notes Problem Dorsalgia (M54.9) Active confirmed [id number] VITAL SIGNS BMI 29.99 kg/m2 07/27/2024 Blood pressure systolic 121 mm Hg 07/28/19 25 Blood pressure diastolic 71 mm Hg 025 Heart Rate 69 /min 07/27/2024 Height 62 in 07/27/2024 Weight 164 lbs 07/27/2024 Encounters Encounter Location Date Provider Diagnosis [facility] [address] [place] [address], [address] [place], [place] [id number] 07/27/2024 Shante Scheidemantel Rheumatoid arthritis of multiple sites without organ or system involvement with positive rheumatoid factor M05.79 ; Dorsalgia M54.9 and Other terminal operator (current) drug therapy Z79.899 ASSESSMENTS Encounter Date [...] visit. DXA done in 2023. 07/27/2024 Other terminal operator (current) drug therapy (ICD-10 - Z79.899) RA [...] Provider Name:Ynes Goldman, 11:10:00 AM, [address] [facility], [address], [place], [place], [id number], Progress Notes * Examination Category Sub-Category Detail [...] for RA follow up. Patient speaks little Romanian. Denies gout history. Recent left thumb injection [...] 2 Prognosis Very Good w/tx Erosive Damage No
--- OUTSIDE RECORDS SUMMARY | 2024-09-22 07:44 | XMS_ITS | Patient Health Record ---
Author Organization [facility] Address [address] [place], [place] [address] Care Team Providers Care Organizational Consultant Name Role Phone David, Makenzie Primary Care Provider Aleida Ynes Lua Unavailable [phone] ScheShante segura Unavailable [phone] ALLERGIES No Known Allergies RESULTS Component Value Reference Range Notes AST (SGOT) Reviewed date:01/01/2024 10:45:25 AM Interpretation: Performing Lab:[facility], [address] [place] [address], Phone - [phone], Director - PhDRyan Notes/Report: AST (SGOT) 32 0-40 IU/L Creatinine, Serum Reviewed date:01/01/2024 10:45:25 AM Interpretation: Performing Lab:[facility], [address] [place] [address], Phone - [phone], Director - Fariba Notes/Report: Creatinine 0.81 0.57-1.00 mg/dL eGFR 80 >59 mL/min/1.73 ALT (SGPT) Reviewed date:01/01/2024 10:45:25 AM Interpretation: Performing Lab:[facility] [address] [place] [address], Phone - [phone], Director - PhDRyan Notes/Report: ALT (SGPT) 37 0-32 IU/L CBC With Differential/Platel et Reviewed date:01/01/2024 10:45:25 AM Interpretation: Performing Lab:[facility] [place], [address] [place] [address], Phone - [phone], Director - PhDRyan Notes/Report: WBC 6.0 3.4-10.8 x10E3/uL RBC 4.22 3.77-5.28 x10E6/uL Hemoglobin 13.0 11.1-15.9 g/dL Hematocrit 39.9 34.0-46.6 % MCV 95 79-97 fL MCH 30.8 26.6-33.0 pg MCHC 32.6 31.5-35.7 g/dL RDW 13.4 11.7-15.4 % Platelets 156 150-450 x10E3/uL Neutrophils 48 Not Estab. % Lymphs 43 Not Estab. % Monocytes 9 Not Estab. % Eos 0 Not Estab. % Basos 0 Not Estab. % Immature Cells Neutrophils (Absolute) 2.9 1.4-7.0 x10E3/uL Lymphs (Absolute) 2.6 0.7-3.1 x10E3/uL Monocytes(Absolute) 0.5 0.1-0.9 x10E3/uL Eos (Absolute) 0.0 0.0-0.4 x10E3/uL Baso (Absolute) 0.0 0.0-0.2 x10E3/uL Immature Granulocytes 0 Not Estab. % Immature Grans (Abs) 0.0 0.0-0.1 x10E3/uL NRBC Hematology Comments: Sed Rate - Westergren Reviewed date:01/01/2024 10:45:25 AM Interpretation: Performing Lab:[facility], Phone - [phone], [facility]: Sedimentation Rate-Crescentergren 5 0-40 mm/hr C-Reactive Protein, Quant Reviewed date:01/01/2024 10:45:25 AM Interpretation: Performing Lab:[address], Phone - [phone], [facility]/Report: C-Reactive Protein, Quant <1 0-10 mg/L QUANTIFERON(R)-TB GOLD PLUS, 1 TUBE Reviewed date:01/01/2024 10:45:25 AM Interpretation: Performing Lab:[address], Phone - [phone], [facility]/Report: QuantiFERON Incubation Incubation performed. QuantiFERON-TB Gold Plus Positive Negative A response to M tuberculosis antigens has been detected. If patient is at low risk for Tuberculosis, the result should be interpreted with caution and repeat testing on a new specimen is recommended (ATS/IDSA/CDC Clinical Practice Guidelines, 2017). False positives can also occur due to infection by M kansasii, M szulgai, or M marinum. Chemiluminescence immunoassay methodology QuantiFERON Criteria QuantiFERON-TB Gold Plus is a qualitative indirect test for M tuberculosis infection (including disease) and is intended for use in conjunction with risk assessment, radiography, and other medical and diagnostic evaluations. The QuantiFERON-TB Gold Plus result is determined by subtracting the Nil value from either TB antigen (Ag) value. The Mitogen tube serves as a control for the test. QuantiFERON TB1 Ag Value 0.75 QuantiFERON TB2 Ag Value 0.54 QuantiFERON Nil Value 0.08 QuantiFERON Mitogen Value >10.00 AST (SGOT) Reviewed date:03/30/2024 10:32:31 AM Interpretation: Performing Lab:[facility], Phone - [phone], Director - [facility] Notes/Report: AST (SGOT) 30 0-40 IU/L Creatinine, Serum Reviewed date:03/30/2024 10:32:39 AM Interpretation: Performing Lab:[address], Phone - [phone], Director - [facility] Notes/Report: Creatinine 0.57 0.57-1.00 mg/dL eGFR 100 >59 mL/min/1.73 ALT (SGPT) Reviewed date:03/30/2024 10:32:39 AM Interpretation: Performing Lab:[facility], Phone - [phone], Director - [facility] Notes/Report: ALT (SGPT) 28 0-32 IU/L CBC With Differential/Platel et Reviewed date:03/30/2024 10:32:39 AM Interpretation: Performing Lab:[address], Phone - [phone], Director - [facility] Notes/Report: WBC 7.3 3.4-10.8 x10E3/uL RBC 4.53 3.77-5.28 x10E6/uL Hemoglobin 13.7 11.1-15.9 g/dL Hematocrit 42.0 34.0-46.6 % MCV 93 79-97 fL MCH 30.2 26.6-33.0 pg MCHC 32.6 31.5-35.7 g/dL RDW 12.3 11.7-15.4 % Platelets 169 150-450 x10E3/uL Neutrophils 54 Not Estab. % Lymphs 35 Not Estab. % Monocytes 10 Not Estab. % Eos 1 Not Estab. % Basos 0 Not Estab. % Immature Cells Neutrophils (Absolute) 3.9 1.4-7.0 x10E3/uL Lymphs (Absolute) 2.6 0.7-3.1 x10E3/uL Monocytes(Absolute) 0.7 0.1-0.9 x10E3/uL Eos (Absolute) 0.1 0.0-0.4 x10E3/uL Baso (Absolute) 0.0 0.0-0.2 x10E3/uL Immature Granulocytes 0 Not Estab. % Immature Grans (Abs) 0.0 0.0-0.1 x10E3/uL NRBC Hematology Comments: Sed Rate - Westergren Reviewed date:03/30/2024 10:32:39 AM Interpretation: Performing Lab:[facility] [address], Phone - [phone], Director - [facility] Notes/Report: Sedimentation Rate-Westergren 11 0-40 mm/hr C-Reactive Protein, Quant Reviewed date:03/30/2024 10:32:39 AM Interpretation: Performing Lab:[facility] [address], Phone - [phone], Director - [facility] Notes/Report: C-Reactive Protein, Quant 1 0-10 mg/L AST (SGOT) Reviewed date:07/29/2024 10:12:52 AM Interpretation: Performing Lab:[facility] [address], Phone - [phone], Director - [facility] Notes/Report: AST (SGOT) 37 0-40 IU/L Creatinine, Serum Reviewed date:07/29/2024 10:12:52 AM Interpretation: Performing Lab:[facility], Phone - [phone], Director - [facility] Notes/Report: Creatinine 0.52 0.57-1.00 mg/dL eGFR 102 >59 mL/min/1.73 ALT (SGPT) Reviewed date:07/29/2024 10:12:52 AM Interpretation: Performing Lab:[address], Phone - [phone], Director - [facility] Notes/Report: ALT (SGPT) 33 0-32 IU/L CBC With Differential/Platel et Reviewed date:07/29/2024 10:12:52 AM Interpretation: Performing Lab:[address], Phone - [phone], Director - [facility] Notes/Report: WBC 7.1 3.4-10.8 x10E3/uL RBC [...] x10E3/uL NRBC Hematology Comments: Sed Rate - Zacheryergren Reviewed date:07/29/2024 10:12:52 AM Interpretation: Performing Lab:[facility] [place], [address] [facility], Phone - [phone], Director - Fariba Notes/Report: Sedimentation Rate-Westergren 7 0-40 mm/hr C-Reactive Protein, Quant Reviewed date:07/29/2024 10:12:52 AM Interpretation: Performing [facility] [address] [facility], [place], Phone - [phone], Director - Fariba Notes/Report: C-Reactive Protein, Quant 1 0-10 mg/L REASON FOR REFERRAL No Information MEDICATIONS Medication SIG (Take, Route, Fr equency, [...] W/U Status Risk SNOMED Code Notes Problem Other care home (current) drug therapy (Z79.899) Active confirmed 488478551 Problem Vitamin D deficiency (E55.9) Active confirmed 27328177 Problem Low back pain (M54.5) Active confirmed Low back pain (114694665) Problem Rheumatoid arthritis of multiple sites without organ or system involvement with positive rheumatoid factor (M05.79) Active confirmed 149409028 Problem Screening-pulmon toshia TB (Z11.1) Active confirmed 751272824 Problem Myalgia (M79.1) Active confirmed 376069 01 Problem Elevated liver function tests (R79.89) Active confirmed 244382721 Problem Other specified arthritis, multiple sites (M13.89) Active confirmed 9693597 Problem terminal gauger current use of systemic steroids (Z79.52) Active confirmed 522335442 Problem terminal gauger current use of non-steroidal anti-inflammator ies (NSAID) (Z79.1) Active confirmed 722830366 Problem Left hip pain (M25.552) Active confirmed Arthralgia of the pelvic region and thigh (825551754) Problem Never smoked cigarettes (Z78.9) Active confirmed 384500852 Problem Non-smoker (Z78.9) Active confirmed 7653363 Problem Right hip pain (M25.551) Active confirmed Arthralgia of the pelvic region and thigh (227828218) Problem SOB (shortness of breath) (R06.02) Active confirmed 839748200 Problem Chest tightness (R07.89) Active confirmed 47351199 Problem Injection site reaction (T80.90XA) Active confirmed 01710858 Problem Dorsalgia (M54.9) Active confirmed 963023118 VITAL SIGNS Heart Rate 69 /min 07/27/2024 Blood pressure diastolic 71 mm Hg 07/27/2024 Height 62 in 07/27/2024 Blood pressure systolic 121 mm Hg 07/27/2024 Weight 164 lbs 07/27/2024 BMI 29.99 kg/m2 07/27/2024 Encounters Encounter Location Date Provider Diagnosis [facility] [address] [place] [address], [address] [id number] 12/29/2023 Shante Scheidemantel Rheumatoid arthritis of multiple sites without organ or system involvement with positive rheumatoid factor M05.79 ; Other care home (current) drug therapy Z79.899 and Screening-pulmonary TB Z11.1 [facility] [address] [place] [address], [address] [id number] 03/29/2024 Shante Scheidemantel Rheumatoid arthritis of multiple sites without organ or system involvement with positive rheumatoid factor M05.79 and Other meterman (current) drug therapy Z79.899 [facility] [address] [place] [address], [facility] [address] [place], [place] [id number] 07/27/2024 Shante Scheidemantel Rheumatoid arthritis of multiple sites without organ or system involvement with positive rheumatoid factor M05.79 ; Dorsalgia M54.9 and Other care home (current) drug therapy Z79.899 [facility] [address] [place] [address], [facility] [address] [place], [place] [id number] 10/22/2023 Ynes Goldman [facility] [address] [place] [address], [facility] [address] [place], [place] [id number] 10/30/2023 Akgun Jones [facility] [address] [id number] 01/01/2024 Akgun Jones [facility] [address] [facility], [address] [id number] 03/29/2024 Akgun Jones Rheumatoid arthritis of multiple sites without organ or system involvement with positive rheumatoid factor M05.79 [facility] [address] [id number] 04/06/2024 Akgun Jones [facility] [address] [id number] 04/19/2024 Akgun Jones [facility] [address] Marlon [facility], [address] [id number] 04/26/2024 Akgun Jones [facility] [address] [id number] 05/06/2024 Akgun Jones [facility] [address] Mar[address] [facility], [address] [id number] 05/20/2024 Akgun Jones [facility] [address] [id number] 05/20/2024 Akgun Jones [facility] 2 Marlon [facility], [address] [id number] 05/20/2024 Akgun Jones Rheumatoid arthritis of multiple sites without organ or system involvement with positive rheumatoid factor M05.79 [facility] [address] [facility], [address] [id number] 05/26/2024 Akgun Jones [facility] [address] [id number] 07/27/2024 Akgun Jones [facility] 2 [facility], [address] [id number] 08/05/2024 Akgun Jones ASSESSMENTS Encounter Date Diagnosis Assessment Notes Treatment Notes Treatment Clinical Notes Section Notes 12/29/2023 Other meterman (current) drug therapy (ICD-10 - Z79.899) Labs have been ordered for medication adverse effect and efficacy monitoring. No changes will be made to medications at this time. Minimize prednisone use. Try 1 aleve twice daily as needed. DXA with osteopenia per patient, on calcium and vitamin D. 12/29/2023 Rheumatoid arthritis of multiple sites without organ or system involvement with positive rheumatoid factor (ICD-10 - M05.79) Labs have been ordered for medication adverse effect and efficacy monitoring. No changes will be made to medications at this time. Minimize prednisone use. Try 1 aleve twice daily as needed. DXA with osteopenia per patient, on calcium and vitamin D. 03/29/2024 Other meterman (current) drug therapy (ICD-10 - Z79.899) RA- doing well on Enbrel. Recent DXA with osteopenia- on calcium and vitamin D. Encouraged weight bearing exercise. Try tylenol arthritis 2 tabs twice daily for left shoulder, volt gel, stretching. She says it is getting better. Follow up with pcp for RLE pain, no calf pain or swelling. She does have varicosities. Try compression stockings during the day, off at night. INH treated, no quantiferon. 03/29/2024 Rheumatoid arthritis of multiple sites without organ or system involvement with positive rheumatoid factor (ICD-10 - M05.79) RA- doing well on Enbrel. Recent DXA with osteopenia- on calcium and vitamin D. Encouraged weight bearing exercise. Try tylenol arthritis 2 tabs twice daily for left shoulder, volt gel, stretching. She says it is getting better. Follow up with pcp for RLE pain, no calf pain or swelling. She does have varicosities. Try compression stockings during the day, off at night. INH treated, no quantiferon. 07/27/2024 Rheumatoid arthritis of multiple sites without [...] D next visit. DXA done in 2023. 03/29/2024 Rheumatoid arthritis of multiple sites without organ or system involvement with positive rheumatoid factor (ICD-10 - M05.79) 05/20/2024 Rheumatoid arthritis of multiple sites without organ or system involvement with positive rheumatoid factor (ICD-10 - M05.79) 12/29/2023 Screening-pulmon toshia TB (ICD-10 - Z11.1) Labs have been ordered for medication adverse effect and efficacy monitoring. No changes will be made to medications at this time. Minimize prednisone use. Try 1 aleve twice daily as needed. DXA with osteopenia per patient, on calcium and vitamin D. 07/27/2024 Other meterman (current) drug therapy (ICD-10 - Z79.899) RA [...] DXA done in 2023. PLAN OF TREATMENT Pending Test Test Name Order Date X ray : Spines, lumbar- outside order X ray : Spines, lumbar- outside order X ray : Spines, lumbar- outside order X ray : Hand, left 12/02/2014 X ray : Hand, right 12/02/2014 AST (SGOT) 10/30/2022 AST (SGOT) 03/02/2021 AST (SGOT) 03/27/2017 Creatinine, Serum 10/30/2022 ALT (SGPT) 03/02/2021 ALT (SGPT) 10/30/2022 ALT (SGPT) 03/27/2017 CBC With Differential/Platelet 3 Sed Rate - Westergren 10/30/2022 C-Reactive Protein, Quant 10/30/2022 Hepatitis Panel (4) 10/30/2022 INJ TRIAMCINOLONE ACETONIDE 10 MG 2015 INJ TRIAMCINOLONE ACETONIDE 10 MG 2015 INJ TRIAMCINOLONE ACETONIDE 10 MG 2016 INJ TRIAMCINOLONE ACETONIDE 10 MG 2015 X ray : Knee, right 3 views- outside ord er 08/28/2023 X ray : Knee, left, 3 views- outside ord er 08/28/2023 X ray : Hip, left- outside order 015 X ray : Hip, right- outside order 2016 X ray : Chest, PA Lateral- outside order 11/02/2015 [facility] 01/02/2015 Lab slip given 03/02/2021 -Xray slip given 05/28/2016 -Xray slip given 11/02/2015 -Xray slip given 08/26/2022 X ray : Spines, thoracic- outside order 07/27/2024 X ray : Ankle, left- outside order 08/26 Next Appt Details Provider Name:Ynes Goldman, 11:10:00 AM, [address] [facility], [address], [place], [place], [id number], Insurance Providers Payer Name Payer Address Payer Phone Subscriber Number Group Number Insured Name Patient Relationship to Insured Coverage Start Date Coverage End Date [employer] MCR Gold Adv Prime HMO Ref Not RQD [address] [place] [address] [id number] Makenzie Wu Self - patient is the insured 5 MEDICARE [address] [address] [place] [address] [id number] Wu Makenzie Self - patient is the insured 2 MEDICAL (GENERAL) HISTORY Medical History History ICD Code bruises easily cataracts blurred vision vision - flashes loss of hearing ear discharge Ringing in ears sinus problems difficulty swallowing hoarseness dizziness swollen glands in neck breast lump low blood pressure poor circulation swelling of ankles/feet varicose veins pneumonia bronchitis bowel changes hemorrhoids weight gain frequent urination abnormal pap smear chicken pox Surgical History Surgery Date(Month/Year) hysterectomy 1983 gallbladder surgery 1995
[2024-09-22 08:05] LABS: Hematocrit 42.8 % (37.0-47.0); Hemoglobin 14.0 g/dL (12.0-15.0); Mean Corpuscular HGB Conc 32.7 g/dl (32-36); Mean Corpuscular Hemoglobin 31.0 pg (26-34); Mean Corpuscular Volume 94.9 fl (80-100); Platelet Count Result 150 k/mm3 (150-375); Red Blood Count 4.51 M/mm3 (4.2-5.4); White Blood Count 7.0 K/mm3 (4.5-10.0)
[2024-09-22 08:25] LABS: INR 0.9; Prothrombin Time 12.1 Seconds (11.1-14.7)
[2024-09-22 08:33] LABS: Alanine Aminotransferase 37 U/L (6-35); Albumin Level 4.2 g/dL (3.5-5.1); Alkaline Phosphatase 96 U/L (38-126); Anion Gap 7 mmol/L (4-12); Aspartate Amino Transferase 37 U/L (14-36); Bilirubin,Total 0.8 mg/dL (0.2-1.3); Blood Urea Nitrogen 15 mg/dL (7-17); Calcium 9.3 mg/dL (8.4-10.2); Carbon Dioxide 27 mmol/L (22-30); Chloride 103 mmol/L (98-107); Cholesterol 219 mg/dL (0-200); Estimated Glomerular Filt Rate > 60; Glucose 109 mg/dL (65-110); HDL Direct 97 mg/dL; Iron 77 ug/dL (37-170); Potassium 4.1 mmol/L (3.4-5.0); Sodium 137 mmol/L (137-145); Total Protein 7.2 g/dL (6.3-8.2); Triglycerides 84 mg/dL (<150)
[2024-09-22 08:43] LABS: Percent Iron Saturation 28 % (20-50)
[2024-09-22 09:11] LABS: Thyroid Stimulating Hormone Reflex 0.519 uIU/mL (0.465-4.68)
[2024-09-22 09:15] LABS: Ferritin 22.70 ng/mL (11.1-264)
[2024-09-22 10:25] LABS: MALB Creatinine Ratio 8.6 mg/g (0-30)
[2024-09-22 10:49] LABS: Hemoglobin A1C 6.6 % (<5.7)
== END 2024-09-22 07:40 | disposition home or self-care (01) ==
PROVIDERS: PCP Nurse Practitioner Family; Visit Provider Nurse Practitioner Family
DX: E55.9 Vitamin D deficiency, unspecified (principal); E11.9 Type 2 diabetes mellitus without complications; Z76.89 Persons encountering health services in other specified circumstances; Z00.00 Encounter for general adult medical examination without abnormal findings; R23.3 Spontaneous ecchymoses; I10 Essential (primary) hypertension; E78.5 Hyperlipidemia, unspecified; Z79.899 Other long term (current) drug therapy; M06.9 Rheumatoid arthritis, unspecified; M47.816 Spondylosis without myelopathy or radiculopathy, lumbar region
CPT/HCPCS: 36415; 80053; 80061; 82043; 82306; 82728; 83036; 83540; 83550; 84443; 85027; 85610

== ENCOUNTER 2024-10-15 06:43 | Emergency (ER) | payer MEDICARE, SELFPAY ==
--- OUTSIDE RECORDS SUMMARY | 2024-05-20 07:30 | XMS_ITS ---
Author Organization [facility] Address [address] [place], [place] [id number] Care Team Providers Care Production Supervisor Trainee Name Role Phone Makenzie Hernandez Primary Care Provider Ynes Akins Unavailable [phone] REASON FOR VISIT Enbrel PA - [facility] MEDICATIONS Medication SIG (Take, Route, Fr equency, Duration) Notes Start Date End Date Status Enbrel Mini Prefilled Cartridge 50 mg/mL 50mg subcutaneously once a week for 84 days 05/20/2024 Active Encounters Encounter Location Date Provider Diagnosis [facility] [address], [facility] [address] [place], [place] [id number] 05/20/2024 Ynes Goldman PLAN OF TREATMENT Medication Medication Name Sig Start Date Stop Date Notes Enbrel Mini Prefilled Cartridge 50 mg/mL 50mg subcutaneously once a week for 84 days 05/20/2024 Next Appt Details Provider Name:Ynes Goldman, 11:10:00 AM, [address], [address], [place], [place], [phone],
--- OUTSIDE RECORDS SUMMARY | 2024-05-26 03:30 | XMS_ITS ---
Author Organization [facility] Address [address] [place], [place] [id number] Care Team Providers Care Tool And Machine Maintainer Name Role Phone Makenzie Hernandez Primary Care Provider Ynes Akins Unavailable [phone] Encounters Encounter Location Date Provider Diagnosis [facility] [address] [place], [place] [id number] 05/26/2024 Ynes Goldman PLAN OF TREATMENT Next Appt Details Provider Name:Ynes Goldman, 11:10:00 AM, [address], [place], [place], [phone],
--- OUTSIDE RECORDS SUMMARY | 2024-07-27 05:37 | XMS_ITS ---
Author Organization [facility] Address [address] [place], [place] [id number] Care Team Providers Care Climbing Guide Name Role Phone Makenzie Hernandez Primary Care Provider Ynes Akins Unavailable [phone] MEDICATIONS Medication SIG (Take, Route, Frequency, Duration) Notes Start Date End Date Status Jardiance 25 mg 1 tab(s) orally once a day (in the morning) Active Enbrel Mini Prefilled Cartridge 50 mg/mL 50mg subcutaneously once a week for 84 days 05/20/2024 Active Cyclobenzaprine Hydrochloride 5 mg 1 - 2 tabs orally at bed time for 30 days 07/27/2024 Active Tylenol [facility] prn Active predniSONE 5 mg 1 tab(s) orally once a day Active Voltaren Gel - for upper body joint 1% 2 g per joint topically 4 times a day Active Encounters Encounter Location Date Provider Diagnosis [facility], [address], [facility] [address] [place], [place] [phone] 07/27/2024 Ynes Goldman PLAN OF TREATMENT Medication Medication Name Sig Start Date Stop Date Notes Cyclobenzaprine Hydrochloride 5 mg 1 - 2 tabs orally at bed time for 30 days 07/27/2024 Next Appt Details Provider Name:Ynes Goldman, 11:10:00 AM, [address], [address], [place], [place], [phone],
--- OUTSIDE RECORDS SUMMARY | 2024-07-27 05:50 | XMS_ITS ---
Author Organization [facility] Address [address] [facility] [address] [place], [place] [id number] Care Team Providers Care Product Scientist Name Role Phone David, Makenzie Primary Care Provider Unavailjosé miguel Ynes Lua Unavailable [phone] ScheShante segura Unavailable [phone] ALLERGIES No Known Allergies RESULTS Component Value Reference Range Notes AST (SGOT) Reviewed date:07/29/2024 10:12:52 AM Interpretation: Performing Lab:[facility] | [facility], [facility], Phone - [phone], Director - Fariba Notes/Report: AST (SGOT) 37 0-40 IU/L Creatinine, Serum Reviewed date:07/29/2024 10:12:52 AM Interpretation: Performing Lab:[facility] | [employer], [facility], Phone - [phone], Director - Fariba Notes/Report: Creatinine 0.52 0.57-1.00 mg/dL eGFR 102 >59 mL/min/1.73 ALT (SGPT) Reviewed date:07/29/2024 10:12:52 AM Interpretation: Performing Lab:[facility] | [facility], [facility], Phone - [phone], Director - Fariba Notes/Report: ALT (SGPT) 33 0-32 IU/L CBC With Differential/Platel et Reviewed date:07/29/2024 10:12:52 AM Interpretation: Performing Lab:[facility] Odeme | [facility], [facility], Phone - [phone], Director - [facility] Notes/Report: WBC 7.1 3.4-10.8 x10E3/uL RBC 4.41 3.77-5.28 x10E6/uL Hemoglobin 13.7 11.1-15.9 g/dL Hematocrit 42.2 34.0-46.6 % MCV 96 79-97 fL MCH 31.1 26.6-33.0 pg MCHC 32.5 31.5-35.7 g/dL RDW 12.5 11.7-15.4 % Platelets 151 150-450 x10E3/uL Neutrophils 62 Not Estab. % Lymphs 29 Not Estab. % Monocytes 8 Not Estab. % Eos 1 Not Estab. % Basos 0 Not Estab. % Immature Cells Neutrophils (Absolute) 4.4 1.4-7.0 x10E3/uL Lymphs (Absolute) 2.1 0.7-3.1 x10E3/uL Monocytes(Absolute) 0.6 0.1-0.9 x10E3/uL Eos (Absolute) 0.1 0.0-0.4 x10E3/uL Baso (Absolute) 0.0 0.0-0.2 x10E3/uL Immature Granulocytes 0 Not Estab. % Immature Grans (Abs) 0.0 0.0-0.1 x10E3/uL NRBC Hematology Comments: Sed Rate - Westergren Reviewed date:07/29/2024 10:12:52 AM Interpretation: Performing Lab:[facility] [place], [address] [place] [address], Phone - [phone], [facility] Notes/Report: Sedimentation Rate-Zacheryergren 7 0-40 mm/hr C-Reactive Protein, Quant Reviewed date:07/29/2024 10:12:52 AM Interpretation: Performing Lab:[facility] [place], [address] [facility], Phone - [phone], Director - [facility] Notes/Report: C-Reactive Protein, Quant 1 0-10 mg/L REASON FOR VISIT Patient is here for RA follow up. MEDICATIONS Medication SIG (Take, Route, Fr equency, Duration) Notes Start Date End Date Status predniSONE 5 mg 1 tab(s) orally once a day Active Enbrel Mini Prefilled Cartridge 50 mg/mL 50mg subcutaneously once a week 05/20/2024 Active Jardiance 25 mg 1 tab(s) orally once a day (in the morning) Active Voltaren Gel - for upper body joint 1% 2 g per joint topically 4 times a day Active Tylenol Arthritis Caplet prn Active SOCIAL HISTORY Tobacco Use: Social History Observation Description Date Details (start date - stop date) Never Smoker NA - NA Sex Assigned At : Social History Observation Description Sex Assigned At Unknown Tobacco Use: Question Answer Notes Smoking Status nonsmoker PROBLEMS Problem Type ICD Code Onset Dates Problem Status W/U Status Risk SNOMED Code Notes Problem Dorsalgia (M54.9) Active confirmed [id number] VITAL SIGNS BMI 29.99 kg/m2 07/27/2024 Blood pressure systolic 121 mm Hg 07/28/19 25 Blood pressure diastolic 71 mm Hg 025 Heart Rate 69 /min 07/27/2024 Height 62 in 07/27/2024 Weight 164 lbs 07/27/2024 Encounters Encounter Location Date Provider [facility] [address] [place] [address], [address] [place], [place] [id number] 07/27/2024 Shante Scheidemantel Rheumatoid arthritis of multiple sites without organ or system involvement with positive rheumatoid factor M05.79 ; Dorsalgia M54.9 and Other half-way (current) drug therapy Z79.899 ASSESSMENTS Encounter Date Diagnosis Assessment Notes Treatment Notes Treatment Clinical Notes Section Notes 07/27/2024 Rheumatoid arthritis of multiple sites without organ or system involvement with positive rheumatoid factor (ICD-10 - M05.79) RA doing well on Enbrel. Her back pain is likely muscular in nature, check xrays she is tender in the center however. Instructed to take aleve as she is doing 2 tabs twice daily for 2 weeks only then back down to 1 tab twice daily. Try flexeril for a bit. Consider PT. Treated with INH, no quantiferon. Check vitamin D next visit. DXA done in 2023. 07/27/2024 Dorsalgia (ICD-10 - M54.9) RA doing well on Enbrel. Her back pain is likely muscular in nature, check xrays she is tender in the center however. Instructed to take aleve as she is doing 2 tabs twice daily for 2 weeks only then back down to 1 tab twice daily. Try flexeril for a bit. Consider PT. Treated with INH, no quantiferon. Check vitamin D next visit. DXA done in 2023. 07/27/2024 Other intermediate card tender (current) drug therapy (ICD-10 - Z79.899) RA doing well on Enbrel. Her back pain is likely muscular in nature, check xrays she is tender in the center however. Instructed to take aleve as she is doing 2 tabs twice daily for 2 weeks only then back down to 1 tab twice daily. Try flexeril for a bit. Consider PT. Treated with INH, no quantiferon. Check vitamin D next visit. DXA done in 2023. PLAN OF TREATMENT Medication Medication Name Sig Start Date Stop Date Notes predniSONE 5 mg 1 tab(s) orally once a day Enbrel Mini Prefilled Cartridge 50 mg/mL 50mg subcutaneously once a week 05/20/2024 Jardiance 25 mg 1 tab(s) orally once a day (in the morning) Voltaren Gel - for upper body joint 1% 2 g per joint topically 4 times a day Tylenol Arthritis Caplet prn Pending Test Test Name Order Date X ray : Spines, lumbar- outside order X ray : Spines, thoracic- outside order 07/27/2024 Next Appt Details Follow Up: 4 Months, Reason: Provider Name:Ynes Goldman, 11:10:00 AM, [address] [facility], [address], [place], [place], [phone], Progress Notes * Examination Category Sub-Category Detail Notes Category Not es Rheumatology Lumbar spine: TTP Thoracic Spine: NROM with 1+ pain wi th ROM, TTP General Constitutional: No acute distress HEENT: PERRLA, Neck supple, Normal sclerae and conjunctivae Cardiovascular RSR, No murmurs, No rub, Normal peripheral pulsations, No edema Lungs: clear to ausculation Abdomen: soft, no organomegal y or masses /Rectal: not done Skin: No cutaneous lesions . No subcutaneous nodules noted in the 4 extremities Neurological: No focal neurologica l findings. Negative straight leg raise Heme/Lymphatic: No cervical, axillar y, or inguinal adenopathy Psych: Alert, oriented x 3, Normal affect Musculoskeletal: Normal strength. No muscle atrophy Joint Exam Shoulders No swelling. No tenderness. NROM., No instability or deformity. Elbows No swelling. No tend erness. NROM., No instability or deformity., Wrists No swelling. No tend erness. NROM., No instability or deformity., right fullness, MCP2 right fullness Hips No tenderness, NROM. , No instability or deformity. Knees No swelling, no tend erness, NROM., No instability or deformity. Ankles No swelling, no tend erness, NROM., No instability or deformity. All IPs No swelling, no tend erness, NROM, no deformity unless noted below. All MCPs No swelling, no tend erness, no deformity unless noted below., All PIPs No swelling, no tend erness, no deformity unless noted below., All DIPs No swelling, no tend erness, no deformity unless noted below. All MTPs No swelling, no tend erness, NROM, no deformity unless noted below. History and Physical Notes * HPI (History of Present Illness) Category Sub-Category Detail Notes Category Not es Rheumatoid Arthritis Breathing difficulties Patient is here with a family member today for RA follow up. Patient speaks little Slovenian. Denies gout history. Recent left thumb injection with orthopedist, helped. Her right shoulder is better after injection, but Dr. Mathew said no more, she will need surgery next time. She has been able to get enbrel with free drug. 5 mg pred prn, about twice per week. She remains on Enbrel weekly. Recent right shoulder injection. She got low back injections recently helped alot, but the left side hurts some still. has metastatic cancer. She says pain management says left hip needs replaced. Wants to hold off. is with her today. Last week tripped fell, landed on left shoulder. Still hurting, but no brusing. Friday fell down the stairs, hurt her low back, landed on her bottom. Hurts alot but is improving. Still on Enbrel. She is taking prednisone daily right now due to her back. No recent infections. Left hip is good. Fever Joint pain right shoulder, righ t hip Joint Swelling left elbow, right fi rst toe Morning stiffness infections rash chest pain Physical Examination Category Sub-Category Detail Notes Section Note s MDHAQ Summary Function (0-10):: 1.3 Pain (0-10):: 5 Patient Global Assessment of Disease Activity (0 -10):: 6 RAPID3 Score (0-30):: 12.3 Physician Global Assessment of Disease Activity (0-10):: 2 Prognosis Very Good w/tx Erosive Damage No"
--- NOTE | ~2024-10-15 | US_ITS ---
EXAMINATION:US venous doppler LE RT INDICATION:Right lateral with pain TECHNIQUE: Multiple grayscale, color flow and Doppler images of the right lower extremity deep venous systems were obtained and reviewed. COMPARISON:No prior studies for comparison. FINDINGS: The common femoral, superficial femoral and popliteal veins demonstrate normal respiratory variation, augmentation and compressibility. Color flow is also seen within the posterior tibial, peroneal, greater saphenous and profunda veins. IMPRESSION: 1: No lower extremity deep venous thrombosis. Reviewed, dictated and finalized at location O.
--- OUTSIDE RECORDS SUMMARY | 2024-10-15 06:45 | XMS_ITS | Encounter Summary ---
Author Organization [facility] Address [address] [place] [address] Care Team Providers Care Information Systems Specialist Name Role Phone Makenzie Hernandez Primary Care Provider + Bi Hernandez MD Unavailable Jessee Quinn MD Unavailable [phone] Jayjay Forman MD Unavailable [phone] Encounter Details Date Type Department Care Team (Late st Contact Info) Description 10/08/2023 Documentation [facility] Pain Mgmt [address] [place] [id number] Bi Hernandez MD [address] [place] [address] [address] Social History Tobacco Use Types Packs/Day Years Used Date Smoking Tobacco: Never Comments No Sex and Gender Information Value Date Recorded Sex Assigned at Not on file Legal Sex Female 4:41 AM THERAPY MANAGER Gender Identity Not on file Sexual Orientation Not on file documented as of this encounter Plan of Treatment Not on file documented as of this encounter Visit Diagnoses Not on filedocumented in this encounter Care Teams Information Systems Specialist Relationship Specialty Start Date End Date Makenzie Hernandez PA PCP - General Physician Complaint Adjuster 09/12/23 Bi Hernandez MD [address] [facility], [facility] [address] [place] [address] Consulting Physician Pain Management 09/23/23 Jessee Quinn MD [address] [facility] [address] [place] [address] Referring Physician Family Medicine 09/24/23 Jayjay Forman MD [address] [place] [address] Consulting Physician Neurosurgery 12/03/23 documented as of this encounter
--- OUTSIDE RECORDS SUMMARY | 2024-10-15 06:45 | XMS_ITS | Clinical Summary ---
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 INSPECTOR Gender Identity Not on file Sexual Orientation Not on file Last Filed Vital Signs Vital Sign Reading Time Taken Comments Blood Pressure 139/74 06/17/2016 8:00 AM CDT Pulse 65 06/17/2016 8:00 AM CDT Temperature 36.6 C (97.8 F) 01/27/2015 11:12 AM SHANK INSPECTOR Respiratory Rate - - Oxygen Saturation - [...] OR WO CAD Routine 04/23/2021 5:08 PM SHANK INSPECTOR Breast cancer screening by mammogram XR DEXA BONE DENSITY AXIAL 1 OR MORE SITES Routine 10/14/2018 9:28 AM CDT Other specified rheumatoid arthritis, left hand (CMS/HCC) from Last 3 Months or Most Recently Relevant to Health Maintenance Results * MAMMO SCRN BILAT 3D ANTONY W OR WO CAD (04/23/2021 5:08 PM SHANK INSPECTOR) Anatomical Region Laterality Modality Breast Bilateral Mammography 04/23/2021 5:08 PM SHANK INSPECTOR Impressions 04/24/2021 9:08 AM SHANK INSPECTOR IMPRESSION: 1. No concerning findings. OVERALL FINAL ASSESSMENT: BI-RADS CATEGORY 1 - Negative. RECOMMENDATIONS: 1. Recommend annual mammography. Narrative 04/24/2021 9:08 AM SHANK INSPECTOR BILATERAL SCREENING DIGITAL MAMMOGRAM WITH 3D TOMOSYNTHESIS AND CAD DATE: 04/23/2021 5:08 PM DICTATION LOCATION: [facility] HISTORY: Routine yearly screening exam. TECHNIQUE: [...] CAD DATE: 04/23/2021 5:08 PM DICTATION LOCATION: [facility] HISTORY: Routine yearly screening exam. TECHNIQUE: [...] the lumbar spine and hip(s) using a Nethub DEXA scanner for bone mineral density determination [...] Sepulveda DO DICTATION LOCATION: Location 1 - [facility] Procedure Note Spencer Sepulveda DO - 10/14/2018 XR DEXA BONE DENSITY AXIAL 1 OR MORE SITES DATE: 10/14/2018 9:28 AM HISTORY: 63 years old Female with post menopausal symptoms. PROCEDURE: Planar images of the lumbar spine and hip(s) using a Nethub DEXA scanner for bone mineral density determination [...] Sepulveda DO DICTATION LOCATION: Location 1 - [facility] Angelo Mckeon MD DIAGNOSTIC IMAGING ORDERABLES Fi nal Result from Last 3 Months or Most Recently Relevant to Health Maintenance [place] [place] [address] [employer] Care Teams Application Design Engineer Relationship Specialty Start Date End Date Teja Weaver MD [address] [place] [phone] PCP - General Family Practice 03/26/21
--- OUTSIDE RECORDS SUMMARY | 2024-10-15 06:46 | XMS_ITS | Encounter Summary ---
Author Organization [facility] Address 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
--- OUTSIDE RECORDS SUMMARY | 2024-10-15 06:46 | XMS_ITS | Clinical Summary ---
Author Organization [facility] Address [address] [place] [address] Care Team Providers Care Trout Farmer Name Role Phone Angelo Mckeon MD Primary Care Provider [phone] Source Comments [facility],non-owned Affiliates and Associated Physician Practices is amultiple site organization consisting of ambulatory clinics and hospital sitesin [place], [place], [place]. This disclosure is being madepursuant to the Care Everywhere program and may not contain all information available regarding this patient. Last updated 17.[facility] [employer] Social History Tobacco Use Types Packs/Day Years Used Date Smoking Tobacco: Never Assessed Comments No Sex and Gender Information Value Date Recorded Sex Assigned at Not on file Legal Sex Female 5:10 AM COMMUNICATIONS STRATEGIST Gender Identity Not on file Sexual Orientation [...] participate in the care of your patient. [facility] utilizes [employer] as a reminder system to notify patients of their next recommended mammogram. us Angelo Mckeon MD MAMMO ORDERABLES Final Result from Last 3 Months or Most Recently Relevant to Health Maintenance Insurance * Guarantor: SALVADORZARI Baptiste Account Type Relation to Patient Date of Phone Billing Address Personal/Family [address] [place] [address] SELF PAY NO INSURANCE Member Subscriber Plan / Payer (Ef fective for All Dates) Name:Zari Salvador Member ID:Not on file Relation to Subscriber:Not on file Name:ZARI SALVADOR Subscriber ID:Not on file Address: [address] [place] [address] Payer ID:Not on file Group ID:Not on file Type:Self Pay Address: [facility] MANAGED MEDICARE ADV * Guarantor: SALVADORZARI Baptiste Account Type Relation to Patient Date of Phone Billing Address Personal/Family [address] [place] [address] SELF PAY NO INSURANCE Member Subscriber Plan / Payer (Ef fective for All Dates) Name:Zari Salvador Member ID:Not on file Relation to Subscriber:Not on file Name:ZARI SALVADOR Subscriber ID:Not on file Address: [address] [place], [place] [id number] Payer ID:Not on file Group ID:Not on file Type:Self Pay Address: [facility] MANAGED MEDICARE ADV * Guarantor: MADELEINEZARI Account Type Relation to Patient Date of Phone Billing Address Personal/Family [address] [place] [address] SELF PAY NO INSURANCE Member Subscriber Plan / Payer (Ef fective for All Dates) Name:Zari Salvador Member ID:Not on file Relation to Subscriber:Not on file Name:ZARI SALVADOR Subscriber ID:Not on file Address: [address] [place] [id number] Payer ID:Not on file Group ID:Not on file Type:Self Pay Address: [facility] MANAGED MEDICARE ADV Care Teams Trout Farmer Relationship Specialty Start Date End Date Angelo Mckeon MD PCP - General Family Medicine 10/05/14
--- OUTSIDE RECORDS SUMMARY | 2024-10-15 06:46 | XMS_ITS | Clinical Summary ---
Author Organization [facility] Address [address] [phone] Phone Care Team Providers Care Stem Lead Former Name Role Phone Unavailable Primary Care Provider [...] 12/27/2021 Dyspnea 12/27/2021 Injection site reaction 12/27/2021 snf (current) use of n on-steroidal anti-inflammatories (nsaid) 12/27/2021 snf current use of systemic steroids 12/27 Low back pain 12/27/2021 Myalgia 12/27/2021 Non-smoker 12/27/2021 Right hip pain 12/27/2021 Type 2 diabetes mellitus wit hout complication (HCC ([facility]) 03/28/2021 Overview (12/27/2021): Note: Foot exam 12/2020 normal. Eye exam 03/2021 normal in [place]. Latent tuberculosis 10/07/2018 Overview (12/27/2021): Note: + PPD Completed INH prior to biologic DMARD Systemic lupus erythematosus ([facility] 03/2014 Overview (12/27/2021): Note: Unchanged Rheumatoid arthritis ([facility]) 06/01/2013 Adverse effect of antiprotozoal drug 04/20/2013 [...] Comments Blood Pressure 110/70 02/13/2022 10:01 AM RIDING DOUBLE Pulse 68 02/13/2022 10:01 AM RIDING DOUBLE Temperature 36.2 C (97.2 F) 02/13/2022 10:01 AM RIDING DOUBLE Respiratory Rate 20 01/21/2018 9:14 AM RIDING DOUBLE Oxygen Saturation 99% 01/21/2018 9:14 AM RIDING DOUBLE Inhaled Oxygen Concentration - - Weight 75.8 kg (167 lb) 02/13/2022 10:01 AM RIDING DOUBLE Height 157.5 cm (5' 2) 02/13/2022 10:01 AM RIDING DOUBLE Body Mass Index 30.54 02/13/2022 10:01 AM RIDING DOUBLE Plan of Treatment Health Maintenance Due Date [...] HEPATITIS PANEL, GENERAL Routine 12/27/2021 9:48 AM RIDING DOUBLE POCT HEMOGLOBIN A1C Routine 12/27/2021 9 :19 AM RIDING DOUBLE Type 2 diabetes mellitus without complication, without long-term current use of insulin HM MAMMOGRAPHY Routine 04/22/2021 11:00 PM RIDING DOUBLE THINPREP TIS AND HPV MRNA E6/E7 Routine 02/20/2021 2:46 PM RIDING DOUBLE MICROALBUMIN, RANDOM URINE (W/CREATININE) Routine 01/08/2021 12:04 PM RIDING DOUBLE from Last 3 Months or Most Recently Relevant to Health Maintenance Results * (ABNORMAL) HEPATITIS PANEL, GENERAL (12/27/2021 9:48 AM RIDING DOUBLE) HEPATITIS A AB REACTIVE( A) NON-REACT [facility] Comment: For additional information, please refer to http://education.Ticketland/faq/BBB163 (This link is being provided for informational/ [...] a test for HCV RNA (test code 78107) is suggested. For additional information please refer to http://education.Ticketland/faq/SVP31f4 (This link is being provided for informational/ educational purposes only.) 12/27/2021 9:48 AM RIDING DOUBLE 12/27/2021 7:49 PM RIDING DOUBLE us Yadi Bauman MD LAB BLOOD ORDERABLES Final Resu lt [facility] [address] [place], [place] [id number] [place] [address] * POCT HEMOGLOBIN A1C Manually Resulted (12/27/2021 9:19 AM RIDING DOUBLE) HEMOGLOBIN A1C 6.5 abnormal Blood Venous blood specimen / Unknown 12/27/2021 9:19 AM RIDING DOUBLE us Yadi Bauman MD POINT OF CARE TEST ENTER/EDIT O RDERABLES Final Result * Hm Mammography (04/22/2021 11:00 PM RIDING DOUBLE) Anatomical Region Laterality Modality Other 04/22/2021 11:0 0 PM RIDING DOUBLE 04/22/2021 11:00 PM RIDING DOUBLE Narrative 04/22/2021 11:00 PM RIDING DOUBLE Access OnBase Patient Window in the Media [...] AND HPV MRNA E6/E7 (02/20/2021 2:46 PM RIDING DOUBLE) CLINICAL INFORMATION None given [facility] PREV. BX [...] of this assay have been determined by [employer]. The modifications have not been cleared or approved by the FDA. This assay has been validated pursuant to the CLIA regulations and is used for clinical purposes. For additional information, please refer to http://education.Ticketland/faq/VAV158d7 (This link if provided for information/ educational purposes only.) PREV. PAP NONE GIVEN [facility] STATEMENT OF ADEQUACY SATISFACTORY FOR EVALUATION [facility] [employer] [facility] Comment:ABC, CT(ASCP) CT scr eening location: [place] [address] [place] [address] COMMENT [facility] Comment:EXPLANATORY NOTE: Th e Pap [...] and current clinical information. 02/20/2021 2:46 PM RIDING DOUBLE 02/20/2021 2:46 PM RIDING DOUBLE Den Amaro MD LAB MICROBIOLOGY - GENERAL ORDERABLES Final Result [facility] * MICROALBUMIN, RANDOM URINE (W/CREATININE) (01/08/2021 12:04 PM RIDING DOUBLE) MICROALBUMIN/CREAT ININE RATIO, RANDOM URINE 6 <30 [...] 275 mg/dL [facility] 01/08/2021 12:0 4 PM RIDING DOUBLE 01/08/2021 12:04 PM RIDING DOUBLE us Den Amaro MD LAB URINE ORDERABLES Final Result [facility] from Last 3 Months or Most Recently Relevant to Health Maintenance Insurance [facility]
--- OUTSIDE RECORDS SUMMARY | 2024-10-15 06:46 | XMS_ITS | Patient Health Record ---
Author Organization [facility] Address [address] [place], [place] [id number] Care Team Providers Care Hemodialysis Charge Nurse Name Role Phone David, Makenzie Primary Care Provider Aleida Ynes Lua Unavailable [phone] ScheShante segura Unavailable [phone] ALLERGIES No Known Allergies RESULTS Component Value Reference Range Notes AST (SGOT) Reviewed date:01/01/2024 10:45:25 AM Interpretation: Performing Lab:[facility], [address] [place] [address], Phone - [phone], Director - PhDRyan Notes/Report: AST (SGOT) 32 0-40 IU/L Creatinine, Serum Reviewed date:01/01/2024 10:45:25 AM Interpretation: Performing Lab:[facility], [address] [place] [address], Phone - [phone], Director - Fariba Notes/Report: Creatinine 0.81 0.57-1.00 mg/dL eGFR 80 >59 mL/min/1.73 ALT (SGPT) Reviewed date:01/01/2024 10:45:25 AM Interpretation: Performing Lab:[email or web address] [address] [place] [address], Phone - [phone], Director - PhDRyan Notes/Report: ALT (SGPT) 37 0-32 IU/L CBC With Differential/Platel et Reviewed date:01/01/2024 10:45:25 AM Interpretation: Performing Lab:[facility] [place], [address] [place] [address], Phone - [phone], Director - PhDRyan Notes/Report: WBC 6.0 3.4-10.8 [...] Westergren Reviewed date:01/01/2024 10:45:25 AM Interpretation: Performing Lab:[facility], Phone - [phone], [facility]/Report: Sedimentation Rate-[place] 5 0-40 mm/hr C-Reactive Protein, Quant Reviewed date:01/01/2024 10:45:25 AM Interpretation: Performing Lab:[facility], Phone - [phone], [facility]/Report: C-Reactive Protein, Quant <1 0-10 mg/L QUANTIFERON(R)-TB GOLD PLUS, 1 TUBE Reviewed date:01/01/2024 10:45:25 AM Interpretation: Performing Lab:[address], Phone - [phone], [facility]/Report: QuantiFERON Incubation Incubation performed. QuantiFERON-TB [...] (SGOT) Reviewed date:03/30/2024 10:32:31 AM Interpretation: Performing Lab:[facility], Phone - [phone], Director - [facility] Notes/Report: AST (SGOT) 30 0-40 IU/L Creatinine, Serum Reviewed date:03/30/2024 10:32:39 AM Interpretation: Performing Lab:[facility], Phone - [phone], Director - [facility] Notes/Report: Creatinine 0.57 0.57-1.00 mg/dL eGFR 100 >59 mL/min/1.73 ALT (SGPT) Reviewed date:03/30/2024 10:32:39 AM Interpretation: Performing Lab:[facility], Phone - [phone], Director - [facility] Notes/Report: ALT (SGPT) 28 0-32 IU/L CBC With Differential/Platel et Reviewed date:03/30/2024 10:32:39 AM Interpretation: Performing Lab:[facility], Phone - [phone], Director - [facility] Notes/Report: WBC 7.3 3.4-10.8 x10E3/uL RBC [...] Westergren Reviewed date:03/30/2024 10:32:39 AM Interpretation: Performing Lab:[facility] [address], Phone - [phone], Director - [facility] Notes/Report: Sedimentation Rate-[place] 11 0-40 mm/hr C-Reactive Protein, Quant Reviewed date:03/30/2024 10:32:39 AM Interpretation: Performing Lab:[facility] [address], Phone - [phone], Director - [facility] Notes/Report: C-Reactive Protein, Quant 1 0-10 mg/L AST (SGOT) Reviewed date:07/29/2024 10:12:52 AM Interpretation: Performing Lab:[facility] [address], Phone - [phone], Director - [facility] Notes/Report: AST (SGOT) 37 0-40 IU/L Creatinine, Serum Reviewed date:07/29/2024 10:12:52 AM Interpretation: Performing Lab:[facility], Phone - [phone], Director - [facility] Notes/Report: Creatinine 0.52 0.57-1.00 mg/dL eGFR 102 >59 mL/min/1.73 ALT (SGPT) Reviewed date:07/29/2024 10:12:52 AM Interpretation: Performing Lab:[address], Phone - [phone], Director - [facility] Notes/Report: ALT (SGPT) 33 0-32 IU/L CBC With Differential/Platel et Reviewed date:07/29/2024 10:12:52 AM Interpretation: Performing Lab:[facility], Phone - [phone], Director - [facility] Notes/Report: WBC 7.1 3.4-10.8 x10E3/uL [...] Reviewed date:07/29/2024 10:12:52 AM Interpretation: Performing Lab:[facility], [address] [facility], Phone - [phone], Director - Fariba Notes/Report: Sedimentation Rate-[place] 7 0-40 mm/hr C-Reactive Protein, Quant Reviewed date:07/29/2024 10:12:52 AM Interpretation: Performing Lab:[facility], [address] [facility] [place], Phone - [phone], Director - Fariba Notes/Report: C-Reactive Protein, Quant [...] Status Risk SNOMED Code Notes Problem Other exterminator helper (current) drug therapy (Z79.899) Active confirmed 292765311 Problem Vitamin D deficiency (E55.9) Active confirmed 82155565 Problem Low back pain (M54.5) Active confirmed Low back pain (760950417) Problem Rheumatoid arthritis of multiple sites without organ or system involvement with positive rheumatoid factor (M05.79) Active confirmed 954264011 Problem Screening-pulmon toshia TB (Z11.1) Active confirmed 045113057 Problem Myalgia (M79.1) Active confirmed 654972 01 Problem Elevated liver function tests (R79.89) Active confirmed 497667865 Problem Other specified arthritis, multiple sites (M13.89) Active confirmed 9360038 Problem exterminator helper current use of systemic steroids (Z79.52) Active confirmed 283151103 Problem exterminator helper current use of non-steroidal anti-inflammator ies (NSAID) (Z79.1) Active confirmed 874500341 Problem Left hip pain (M25.552) Active confirmed Arthralgia of the pelvic region and thigh (163641620) Problem Never smoked cigarettes (Z78.9) Active confirmed 291838523 Problem Non-smoker (Z78.9) Active confirmed 1582458 Problem Right hip pain (M25.551) Active confirmed Arthralgia of the pelvic region and thigh (892781892) Problem SOB (shortness of breath) (R06.02) Active confirmed 859573577 Problem Chest tightness (R07.89) Active confirmed 94905395 Problem Injection site reaction (T80.90XA) Active confirmed 32430829 Problem Dorsalgia (M54.9) Active confirmed 631114442 VITAL SIGNS Heart Rate 69 /min 07/27/2024 Blood pressure diastolic 71 mm Hg 07/27/2024 Height 62 in 07/27/2024 Blood pressure systolic 121 mm Hg 07/27/2024 Weight 164 lbs 07/27/2024 BMI 29.99 kg/m2 07/27/2024 Encounters Encounter Location Date Provider Diagnosis [facility] [address] [place] [address], [address] [id number] 12/29/2023 Shante Scheidemantel Rheumatoid arthritis of multiple sites without organ or system involvement with positive rheumatoid factor M05.79 ; Other correction (current) drug therapy Z79.899 and Screening-pulmonary TB Z11.1 [facility] [address] [place] [address], [address] [id number] 03/29/2024 Shante Scheidemantel Rheumatoid arthritis of multiple sites without organ or system involvement with positive rheumatoid factor M05.79 and Other correction (current) drug therapy Z79.899 [facility] [address] [place] [address], [facility] [address] [place], [place] [phone] 07/27/2024 Shante Scheidemantel Rheumatoid arthritis of multiple sites without organ or system involvement with positive rheumatoid factor M05.79 ; Dorsalgia M54.9 and Other exterminator helper (current) drug therapy Z79.899 [facility] [address] [place] [address], [facility] [address] [place], [place] [phone] 10/22/2023 Ynes Goldman [facility] [address] [place] [address], [facility] [address] [place], [place] [phone] 10/30/2023 Akgun Jones [facility] [address] [id number] 01/01/2024 Akgun Jones [facility] [address] [facility], [address] [id number] 03/29/2024 Akgun Jones Rheumatoid arthritis of multiple sites without organ or system involvement with positive rheumatoid factor M05.79 [facility] [address] [id number] 04/06/2024 Akgun Jones [facility] [address] [id number] 04/19/2024 Akgun Jones [facility] [address] [facility], [address] [id number] 04/26/2024 Akgun Jones [facility] [address] [id number] 05/06/2024 Akgun Jones [facility] [address] [facility], [address] [id number] 05/20/2024 Akgun Jones [facility] [address] [id number] 05/20/2024 Akgun Jones [facility] [address] [facility], [address] [id number] 05/20/2024 Akgun Jones Rheumatoid arthritis of multiple sites without organ or system involvement with positive rheumatoid factor M05.79 [facility] [address] [facility], [address] [id number] 05/26/2024 Akgun Jones [facility] [address] [id number] 07/27/2024 Akgun Jones [facility], [address] [id number] 08/05/2024 Akgun Jones ASSESSMENTS Encounter Date Diagnosis Assessment Notes Treatment Notes Treatment Clinical Notes Section Notes 12/29/2023 Other correction (current) drug therapy (ICD-10 - Z79.899) Labs [...] on calcium and vitamin D. 03/29/2024 Other correction (current) drug therapy (ICD-10 - Z79.899) RA- [...] on calcium and vitamin D. 07/27/2024 Other exterminator helper (current) drug therapy (ICD-10 - Z79.899) RA [...] 2015 INJ TRIAMCINOLONE ACETONIDE 10 MG 2016 X ray : Knee, right 3 views- [...] Provider Name:Ynes Goldman, 11:10:00 AM, [address] [facility], [address], [place], [place], [phone], Insurance Providers Payer Name Payer Address Payer Phone Subscriber Number Group Number Insured Name Patient Relationship to Insured Coverage Start Date Coverage End Date [employer] MCR Gold Adv Prime HMO Ref Not RQD [address] [place] [address] [id number] Makenzie Wu Self - patient is the insured 5 MEDICARE [address] [address] [place] [address] [id number] WuMakenzie Self - patient is the insured 2 [...]
--- OUTSIDE RECORDS SUMMARY | 2024-10-15 06:46 | XMS_ITS | Clinical Summary ---
Author Organization [facility] Address [address] [place] [address] Care Team Providers Care Agricultural Researcher Name Role Phone Makenzie Hernandez Primary Care Provider + Bi Hernandez MD Unavailable Jessee Quinn MD Unavailable [phone] Jayjay Forman MD Unavailable [phone] Allergies No known active allergies Medications [...] Encounters Date Type Department Care Team Description 10/12/2024 8:58 AM CDT - 10/12/2024 11:59 PM CDT Hospital Encounter [facility] [address] [place] [id number] Bi Hernandez MD 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); Neural foraminal stenosis of lumbar spine; Radiculopathy, lumbar region Discharge Disposition: Discharge to home or self care 08/30/2024 8:39 AM CDT - 08/30/2024 11:59 PM CDT Hospital Encounter [facility] [address] [place] [phone] Bi Hernandez MD Bulge of lumbar disc without myelopathy; Neural foraminal stenosis of lumbar spine; Radiculopathy, lumbar region Discharge Disposition: Discharge to home or self care 08/16/2024 12:19 PM CDT - 08/16/2024 11:59 PM CDT Hospital Encounter [facility] [address] [address] Bi Hernandez MD Bulge of lumbar disc without myelopathy; Neural foraminal stenosis of lumbar spine; Radiculopathy, lumbar region Discharge Disposition: Discharge to home or self care 08/10/2024 9:12 AM CDT - 08/10/2024 11:59 PM CDT Hospital Encounter [facility] [address] [place] [id number] Bi Hernandez MD Bulge of lumbar disc [...] on file Legal Sex Female 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 Gender Identity Not on file Sexual Orientation Not on file Obstetrics History Last Filed Vital Signs Vital Sign Reading Time Taken Comments Blood Pressure 116/71 10/12/2024 9:17 AM CDT Pulse 73 10/12/2024 9:17 AM CDT Temperature 36.1 C (96.9 F) 10/12/2024 9:17 AM CDT Respiratory Rate 18 10/12/2024 9:17 AM CDT Oxygen Saturation 96% 10/12/2024 9:17 AM CDT Inhaled Oxygen Concentration - - Weight 74 kg (163 lb 3.2 oz) 10/12/2024 9:17 AM CDT Height 152.4 cm (5') 10/12/2024 9:17 AM CDT Body Mass Index 31.87 10/12/2024 9:17 AM CDT Plan of Treatment Health Maintenance Due Date Last Done Comments Colon Cancer Screening-Colonoscopy 1955 Depression Screening 1957 Fall Risk Assessment 1957 Osteoporosis Screening-Bone Density Scan 1955 Hepatitis B Screening 1975 Zoster Vaccine (2 of 2) 11/01/2018 09/06/2018 Pneumococcal vaccine 65+ (2 of 2 - PCV20 or PCV21) 10/08/2019 10/07/2018 Covid-19 Vaccine (3 - Modern a risk series) 06/16/2020 05/19/2020, 04/19/2020 Well Visit 65+ 2022 Breast Cancer Screening-Mammogram 04/22/2022 022, 11/17/2018 Influenza Vaccine (#1) 2024 4, 10/29/2023, 12/13/2021, Additional history exists DTaP/Tdap/Td Vaccine (2 - [...] SERUM HEPATITIS PANEL Routine 01/26/2013 1:17 PM PROFESSOR OF FORESTRY from Last 3 Months or Most Recently Relevant to Health Maintenance Results * Imaging Lumbar/Sacral Selective Nerve Root INJ (TFE) Bilateral (47082) (08/30/2024 10:01 AM CDT) Narrative [id number] - 08/30/2024 10:12 AM CDT The images from this study are not interpreted by Radiology. Please refer to the physician's procedure / OR operative note. us Bi Hernandez MD IMG PAIN MGMT PROCEDURES Final R esult RAD_[email or web address]_MHE * (ABNORMAL) POCT glucose (08/30/2024 9:29 AM CDT) Glucose, POC 212(H) 70 - 199 mg/dL Blood 08/30/2024 9:29 AM CDT 08/30/2024 9:29 AM CDT Bi Hernandez MD LAB POCT ORDERABLES - DEVICE Fin al Result Performing Organization Address [facility] Co de Phone Number MARIANNE [address] [place] [address] * Imaging Lumbar/Sacral Selective Nerve Root INJ (TFE) Bilateral (45639) (08/16/2024 1:54 PM CDT) Narrative PEACE_MHE - 08/16/2024 1:55 PM CDT The images from this study are not interpreted by Radiology. Please refer to the physician's procedure / OR operative note. Bi Hernandez MD IMG PAIN MGMT PROCEDURES Final R esult Performing Organization Address [facility] de Phone Number [email or web address] * POCT glucose (08/16/2024 12:39 PM CDT) Glucose, POC 152 70 - 199 mg/dL Blood 08/16/2024 12:3 9 PM CDT 08/16/2024 12:39 PM CDT Bi Hernandez MD LAB POCT ORDERABLES - DEVICE Fin al Result Performing Organization Address [facility] Co de Phone Number MARIANNE [address] [place] [address] * Serum Hepatitis panel (01/26/2013 1:17 PM PROFESSOR OF FORESTRY) HBV surface ag Negative NEG HISTO RICAL RESULTS HCV ab Negative NEG HISTORICAL RESULTS Comment: Interpretive Data If confirmation is required, call Laboratory Customer Service to request sample to be sent to [facility] for Hepatitis C Virus (HCV) RNA Detection and Quantitation by Real-Time Reverse Harness And Bag Inspector-PCR (RT-PCR). Current interpretive data was last revised [...] revised on 2007. Serum 01/26/2013 1:17 PM PROFESSOR OF FORESTRY us Edward Samson MD LAB BLOOD ORDERABLES Fi nal Result HISTORICAL RESULTS from Last 3 Months or Most Recently Relevant to Health Maintenance Insurance T MEDICARE GOLD Care Teams Agricultural Researcher Relationship Specialty Start Date End Date Makenzie Hernandez PA PCP - General Physician Hot Metal Crane Operator 09/12/23 Bi Hernandez MD [address] [facility] [address] [place] [address] Consulting Physician Pain Management 09/23/23 Jessee Quinn MD [address] [address] Referring Physician Family Medicine 09/24/23 Jayjay Forman MD [address] [place] [address] Consulting Physician Neurosurgery 12/03/23
[2024-10-15 07:04] VITALS: BP 105/65; PULSE 68; RESP 15; TEMP 36.5; O2SAT 99
--- NOTE | 2024-10-15 07:10 | ED.GENADULT ---
HPI - General Adult General Chief complaint: Extremity Problem,Nontraumatic Stated complaint: R calf pain Time Seen by Provider: 10/15/24 06:57 History of Present Illness HPI narrative: 69-year-old female presented to the emergency department for evaluation for right lateral leg pain. Patient states at approximately 4 days ago she felt like she was having a leg cramp that radiate from upper leg to the lower leg. Patient describes her right lateral leg pain. Patient denies any medial leg pain. Patient denies any fall or specific incident of injury. Patient did take some Aleve this morning but is requesting additional medication for pain control. Related Data Home Medications ?Medication ?Instructions ?Recorded ?Confirmed ?Last Taken ?Type prednisone 5 mg tablet 5 mg PO DAILY PRN RA 05/22/20 09/21/24 11/03/22 History meloxicam 15 mg tablet 15 mg PO DAILY 07/03/23 09/21/24 Unknown History Allergies Allergy/AdvReac Type Severity Reaction Status Date / Time No Known Allergies Allergy Verified 10/15/24 06:44 Review of Systems Review of Systems: All systems reviewed & are unremarkable except as noted in HPI and below PMFSH Past Medical History Medical History (Updated 10/15/24 @ 08:50 by Nathan Bergman MD) Rheumatoid arthritis Epigastric pain Diverticulitis Hypertension High cholesterol Diabetes Arthritis Surgical History Surgical History History of esophagogastroduodenoscopy (EGD) approx Jan 2023/Feb 2023 History of colonoscopy ~2022 History of cholecystectomy ~1998 History of eye surgery Left Family History Family History Father Family history of malignant neoplasm, Onset Age: 104 Social History Social History Social History: [place]ese speaking Smoking status: Never smoker Alcohol intake: never Substance use: never Substance use type: does not use Lack of Transportation: No Lack of Food: Never True Current Housing: I Have Housing Concerned About Future Housing: No Difficulty Paying Gas/Electric Bills: No Difficulty Paying for Meds: No Currently Unemployed: No Education: Don't Know Difficulty w/ Childcare or Family Care: No Living arrangements: with family Occupation/Education: occupation Gender identity (if verbalized by the patient): Female Spiritual care concerns: No Exam Narrative: APPEARANCE: Well appearing, no pain, no distress, well-nourished. HEAD: normocephalic, atraumatic. EYES: PERRLA/EOMI, conjunctivae clear. NOSE: Normal no drainage EARS:TMS clear with good light reflex. THROAT: Pharynx clear, no exudate. NECK: Supple. No adenopathy, no masses. RESPIRATORY: Airway patent, respirations nonlabored. Clear to auscultation bilaterally, no rales, rhonchi, wheezing. CARDIOVASCULAR: Regular rate and rhythm without murmurs rubs or gallops. ABDOMINAL: Soft, nontender, nondistended, normal bowel sounds MUSCULOSKELETAL: Right lateral leg tenderness to palpation with no deformity, ecchymosis or edema NEURO: Alert. Cranial nerves II through XII intact. Good gait. Good coordination SKIN: Warm, dry. Normal Color Course Vital Signs Vital signs: Vital Signs Temperature 97.7 F 10/15/24 07:04 Pulse Rate 68 10/15/24 07:04 Respiratory Rate 15 10/15/24 07:04 Blood Pressure 105/65 10/15/24 07:04 Pulse Oximetry 99 10/15/24 07:04 Oxygen Delivery Room Air 10/15/24 07:04 Temperature 98.2 F 10/15/24 09:10 Pulse Rate 61 10/15/24 09:10 Respiratory Rate 18 10/15/24 09:10 Blood Pressure 102/66 10/15/24 09:10 Pulse Oximetry 98 10/15/24 09:10 Oxygen Delivery Room Air 10/15/24 07:04 Medical Decision Making [facility] Narrative Medical decision making narrative: 69-year-old female presenting to the emergency department for evaluation for right lateral leg pain. Patient is currently afebrile with no leukocytosis and hemoglobin of 12.6. Patient has an INR 1.1. Patient has no acute abnormalities on her BMP. Ultrasound was negative for DVT. Exam as not consistent with cellulitis. No deformity of hip knee or ankle. Patient will be treated as a muscular strain. Patient will be provided anti-inflammatories along with a muscle relaxant. Patient was encouraged of close follow-up with her primary care physician. Differential Diagnosis Differential Diagnosis: DVT, muscle strain, rhabdomyolysis, hip fracture, knee fracture Vital Signs Vital Signs: Vital Signs Temperature 97.7 F 10/15/24 07:04 Pulse Rate 68 10/15/24 07:04 Respiratory Rate 15 10/15/24 07:04 Blood Pressure 105/65 10/15/24 07:04 Pulse Oximetry 99 10/15/24 07:04 Oxygen Delivery Room Air 10/15/24 07:04 Temperature 98.2 F 10/15/24 09:10 Pulse Rate 61 10/15/24 09:10 Respiratory Rate 18 10/15/24 09:10 Blood Pressure 102/66 10/15/24 09:10 Pulse Oximetry 98 10/15/24 09:10 Oxygen Delivery Room Air 10/15/24 07:04 Lab Data Lab results reviewed: Yes I reviewed the patient's lab results. 10/15/24 07:51 10/15/24 07:51 Labs: Lab Results 10/15/24 Range/Units 07:51 WBC 5.8 (4.5-10.0) K/mm3 RBC 4.01 L (4.2-5.4) M/mm3 Hgb 12.6 (12.0-15.0) g/dL Hct 38.1 (37.0-47.0) % MCV 95.0 (80-100) fl MCH 31.4 (26-34) pg MCHC 33.1 (32-36) g/dl RDW 12.5 (11.5-14.5) % Plt Count 142 L (150-375) k/mm3 MPV 9.4 (7.4-10.4) fl Immature Gran % (Auto) 0.2 (0-0.5) % Neut % (Auto) 47.4 (45.5-73.1) % Lymph % (Auto) 42.0 (18.3-44.2) % [place] % (Auto) 9.2 H (2.6-8.5) % Eos % (Auto) 0.9 (0-4.4) % Baso % (Auto) 0.3 (0.2-1.2) % Lymph # (Auto) 2.43 (0.9-3.2) K/mm3 [place] # (Auto) 0.5 (0.1-0.6) K/mm3 Eos # (Auto) 0.1 (0-0.3) K/mm3 Baso # (Auto) 0.0 (0.0-0.1) K/mm3 Abs Immat Gran (auto) 0.01 (0.00-0.031) K/mm3 Absolute Neuts (auto) 2.7 (1.3-6.7) K/mm3 Absolute Nucleated RBC 0.000 (0.0-0.012) K/mm3 Nucleated RBC % 0.0 (0.0-0.2) % PT 13.9 (11.1-14.7) Seconds INR 1.1 APTT 27.0 (22.3-36.8) Seconds Sodium 138 (137-145) mmol/L Potassium 3.4 (3.4-5.0) mmol/L Chloride 106 (98-107) mmol/L Carbon Dioxide 25 (22-30) mmol/L Anion Gap 7 (4-12) mmol/L BUN 15 (7-17) mg/dL Creatinine 0.47 L (0.7-1.0) mg/dL Estim Creat Clear Calc 90 ml/min Estimated GFR > 60 (59 - ) Glucose 179 H (65-110) mg/dL Calcium 8.9 (8.4-10.2) mg/dL Imaging Data Radiologist's impression: Impressions Venous Doppler Study 10/15/24 07:58 IMPRESSION: 1: No lower extremity deep venous thrombosis. Discharge Plan Discharge Clinical Impression: Acute pain of right lower extremity Patient Disposition: Home Condition: Stable Instructions: Antibiotic Form Additional Instructions: Naproxen as directed for pain control. Flexeril as needed for muscle spasm. Have close follow-up with your primary care physician. Patient Language: [place]ese Prescriptions: New cyclobenzaprine 10 mg tablet 10 mg PO BID PRN (Reason: muscle spasm) Qty: 14 0RF naproxen [Naprosyn] 500 mg tablet 500 mg PO BID 7 Days Qty: 14 0RF No Action prednisone 5 mg tablet 5 mg PO DAILY PRN (Reason: RA) meloxicam 15 mg tablet 15 mg PO DAILY metformin 750 mg tablet extended release 24 hr 750 mg PO DAILY Qty: 90 1RF Jardiance 25 mg tablet 25 mg PO DAILY Qty: 90 1RF cyclobenzaprine 5 mg tablet 5 mg PO TID PRN (Reason: muscle spasm) Qty: 30 0RF acetaminophen 500 mg capsule 1,000 mg PO Q6H PRN (Reason: pain) Qty: 30 0RF Enbrel 50 mg/mL (1 mL) syringe 50 mg SUBCUT WEEKLY Qty: 4 0RF Follow-up/Referrals: Naa Roberts APRN [Primary Care Provider, Internal Medicine]
[2024-10-15] MEDS: HYDROcodone/acetaminophen (*CRX) 5-325 MG TABLET 1 TAB PO (07:23)
[2024-10-15] MEDS: KETOROLAC 30 MG/ML VIAL (*BKC) IM (07:23)
[2024-10-15 07:57] LABS: Hematocrit 38.1 % (37.0-47.0); Hemoglobin 12.6 g/dL (12.0-15.0); Immature Granulocyte Percent A 0.2 % (0-0.5); Lymphocytes Absolute Auto 2.43 K/mm3 (0.9-3.2); Mean Corpuscular HGB Conc 33.1 g/dl (32-36); Mean Corpuscular Hemoglobin 31.4 pg (26-34); Mean Corpuscular Volume 95.0 fl (80-100); Nucleated Red Blood Cells Absolute Auto 0.000 K/mm3 (0.0-0.012); Nucleated Red Blood Cells Perc 0.0 % (0.0-0.2); Platelet Count Result 142 k/mm3 (150-375); Red Blood Count 4.01 M/mm3 (4.2-5.4); White Blood Count 5.8 K/mm3 (4.5-10.0)
[2024-10-15 08:08] LABS: Anion Gap 7 mmol/L (4-12); Blood Urea Nitrogen 15 mg/dL (7-17); Calcium 8.9 mg/dL (8.4-10.2); Carbon Dioxide 25 mmol/L (22-30); Chloride 106 mmol/L (98-107); Estimated CRCL calculation 90 ml/min; Estimated Glomerular Filt Rate > 60; Glucose 179 mg/dL (65-110); Potassium 3.4 mmol/L (3.4-5.0); Sodium 138 mmol/L (137-145)
[2024-10-15 08:25] LABS: INR 1.1; Partial Thromboplastin Time 27.0 Seconds (22.3-36.8); Prothrombin Time 13.9 Seconds (11.1-14.7)
[2024-10-15 09:10] VITALS: BP 102/66; PULSE 61; RESP 18; TEMP 36.8; O2SAT 98
== END 2024-10-15 09:31 | disposition home or self-care (01) ==
PROVIDERS: Emergency Provider Emergency Medicine; PCP Nurse Practitioner Family
DX: M79.604 Pain in right leg (principal); I10 Essential (primary) hypertension; E78.00 Pure hypercholesterolemia, unspecified; E11.9 Type 2 diabetes mellitus without complications; M06.9 Rheumatoid arthritis, unspecified; M19.90 Unspecified osteoarthritis, unspecified site; Z90.49 Acquired absence of other specified parts of digestive tract; Z79.84 Long term (current) use of oral hypoglycemic drugs; Z79.1 Long term (current) use of non-steroidal anti-inflammatories (NSAID); Z79.620 Long term (current) use of immunosuppressive biologic
CPT/HCPCS: 36415; 80048; 85025; 85610; 85730; 93971; 96372; 99284; A9270; J1885

== ENCOUNTER 2024-12-02 09:09 | Outpatient (CLI) | payer MEDICARE, SELFPAY ==
--- NOTE | ~2024-12-02 | XR_ITS ---
EXAMINATION: XR knee RT min 4V, 12/02/2024 9:35 CDT HISTORY: R knee pain COMPARISON: No comparisons available. Findings: No acute fracture or malalignment. Moderate tricompartmental degenerative changes Soft tissues unremarkable. Impression: No acute fracture or malalignment. Reviewed, dictated and finalized at location P. Impression: No acute fracture or malalignment.
== END 2024-12-02 09:10 | disposition home or self-care (01) ==
DX: M25.561 Pain in right knee (principal)
CPT/HCPCS: 73564